=== PATIENT | female | born 1935 | race Caucasian/White ===

== ENCOUNTER 2024-11-02 18:34 | Emergency (ER) | payer MEDICARE, BC, MEDICAID, SELFPAY ==
[2024-11-02] VITALS (7 sets, daily range): BP systolic 149–180; BP diastolic 86–92; PULSE 56–108; RESP 12–22; TEMP 36.8–37.1; O2SAT 86–98; BMI 25.7
--- NOTE | 2024-11-02 18:38 | PD.EDADULT ---
ED General RME/HPI General Chief complaint: Weakness Stated complaint: GENERALIZED WEAKNESS Time Seen by Provider: 11/02/24 18:36 Arrival date/time: 11/02/24 18:34 CC: Weakness HPI patient was recently diagnosed with a UTI, and the family report the patient is generalized weakness, patient states that she has been feeling poorly today. But denies any outright navjot symptoms EMS reports stable vital signs and route. The patient is awake alert and oriented with a history of COPD and tongue cancer. At 2308 family member at bedside states the patient has been mildly altered for the past 3 days however I am noticed that the patient was responding to all questions without problems. The family member insist that it is time I am gone she is altered to other staff workers in the emergency room. Related Data Home Medications ?Medication ?Instructions ?Recorded ?Confirmed albuterol sulfate 90 mcg/actuation 1 puff inhalation Q4H PRN sob 12/05/21 12/05/21 aerosol inhaler ipratropium 0.5 mg-albuterol 3 mg 3 ml inhalation Q6H PRN sob 12/05/21 12/05/21 (2.5 mg base)/3 mL nebulization soln levothyroxine 25 mcg tablet 25 mcg PO QAM 12/05/21 12/05/21 losartan 25 mg tablet 25 mg PO QDAY 12/05/21 12/05/21 pramipexole 2.25 mg 2.25 mg PO QDAY 12/05/21 12/05/21 tablet,extended release 24 hr sertraline 50 mg tablet 50 mg PO QDAY 12/05/21 12/05/21 Previous Rx's ?Medication ?Instructions ?Recorded albuterol sulfate 2.5 mg/3 mL 2.5 mg (3 mL) inhalation Q4H PRN 01/21/23 (0.083 %) solution for nebulization shortness of breath or wheezing #90 mL Allergies Allergy/AdvReac Type Severity Reaction Status Date / Time Penicillins Allergy Intermediate Rash Verified 11/29/21 16:19 Review of Systems Review of Systems Narrative Review of Systems: GEN: No fever, no chills, no weight loss EYES: No discharge, no visual changes, no pain HEENT: No ear pain, no congestion, no sore throat PULM: No shortness of breath, no cough, no congestion CV: No chest pain, no dyspnea on exertion, no palpitations GI: No nausea, no vomiting, no diarrhea, no pain, no constipation : No frequency, no urgency, no dysuria MUSC/SKEL: No joint pain, no back pain SKIN: No rash PSYCH: No hallucinations, no depression HEME/LYMPH: No easy bleeding or bruising tendencies NEURO: + weakness, no headache Past Medical History Past Medical History NEUROLOGIC: Negative Neurological Disorders CARDIAC: Positive Cardiac Disorders; Negative Hypercholesterolemia, Congestive Heart Failure or Hypertension RESPIRATORY: Positive Chronic Obstructive Pulmonary Disease (COPD) GASTROINTESTINAL: Negative Gastrointestinal Disorders GENITOURINARY: Negative Genitourinary Disorders or Renal Disease MUSCULOSKELETAL: Negative Musculoskeletal Disorders ENT: Positive Blind ENDOCRINE: Positive Endocrine Disorders and Hypothyroidism; Negative Diabetes Mellitus Type 1 or Diabetes Mellitus Type 2 HEMATOLOGIC: Negative Blood Disorders PSYCHO/SOCIAL: Positive Depression OTHER HISTORY: Negative Autoimmune Disease Surgical History SURGICAL: Positive Hysterectomy Social History SMOKING STATUS: Former smoker SUBSTANCE USE: does not use ED Exam Narrative Physical exam: [General: Deconditioned but not frail. Not in any acute distress Head normocephalic HEENT: Mouth: Grossly malformed tongue patient advised is baseline for her. Eyes pupils are PERRLA EOMs are intact pink moist membranes uvula is midline swallow symmetrical. All other subsystems of HEENT are within acceptable limits Neck is supple nontender Chest equal chest rise nontender to palpation Respiratory: Clear to auscultation no wheezes crackles or rubs CV: Rate rhythm is regular no murmurs rubs or clicks Abdomen is distended secondary to body habitus soft nontender no masses positive bowel sounds all 4 quadrants Back: No CVA tenderness no spinous process tenderness from cervical spine thoracic and lumbar spine Skin: Intact no petechiae rash induration ulceration or crepitus Extremities: Moving all extremity against resistance cap refill less than 2 seconds neurosensory intact Neuro: Awake alert oriented x3 Glascow coma 15 no focal deficits] Course Course Course Narrative: Plan is to CT of the head to see that there is no abnormalities with a concern for metastasis from the tongue cancer. The patient will begin radiation therapy with Dr. Pinto in 1 week. Quality Measures none Orders Category Date Time Status CT head/brain wo con Stat Exams 11/02/24 23:07 Completed CBC Stat Lab 11/02/24 19:38 Completed CMP [Comprehensive Metabolic Panel] Stat Lab 11/02/24 19:38 Completed Urinalysis, C/S if Indicated Stat Lab 11/02/24 21:58 Completed HYDROcodone/APAP 10/325 [[place] 10/325] Med 11/02/24 21:12 Discontinued 1 tab PO X1 ONE Sodium Chloride 0.9% 500 ml [Ns] 500 ml Med 11/03/24 01:00 Discontinued IV 999 mls/hr Vital Signs Vital signs: Vital Signs Temperature 98.8 F 11/02/24 19:03 Pulse Rate 108 H 11/02/24 19:03 Respiratory Rate 18 11/02/24 19:03 Blood Pressure 170/90 H 11/02/24 19:03 Pulse Oximetry (%) 86 L 11/02/24 19:03 Oxygen Delivery Method Nasal Cannula 11/02/24 19:03 MDM Patient data External records reviewed:: [facility] previous records and EMS form Clinical information provided by:: patient and EMS Social determinants that could affect healthcare access:: none Patient has the following chronic illnesses:: Tongue cancer, COPD How is presenting disease/condition affected by chronic disease/condition?: uneffected by Evaluation data The following diagnostics were reviewed and interpreted by me:: lab results and radiology exam(s) Lab and/or radiology exams considered but not ordered:: None Interpretation Summary: Possible altered behavior secondary to fluctuations in pain medication administered. Medications Medications considered but not ordered:: None Medication administrations:: Medication Administration History Discontinued Medications Hydrocodone Bitart/Acetaminophen (Hydrocodone/Apap 10/325 Tab) 1 tab PO X1 ONE Stop: 11/02/24 21:13 Last Admin: 11/02/24 21:19 Dose: 1 tab Documented By: JIMMIE Sodium Chloride (Ns) 500 mls @ 999 mls/hr IV .Q31M ONE Stop: 11/03/24 01:30 Last Infusion: 11/03/24 02:34 Dose: Infused Documented By: Admin: 11/03/24 02:03 Dose: 999 mls/hr Documented By: KG None Consultations Consultation(s) initiated? (list below): No Diagnosis Differential Diagnosis ED Complaint MDM: Cerebral mets, electrolyte imbalances dehydration Most likely diagnosis given after review of the tests above:: Weakness Admission Indicated Admission indicated?: not indicated Explain why admission is indicated or not indicated:: Stable for outpatient follow-up Admission Request Was there a request for admission?: No Disposition Plan Disposition Plan: Discharge Discharge Attestation Discharge Attestation: The patient and all family members were given an opportunity to ask questions and understood the discharge instructions. Discharge instructions specifically effects, indications for sooner follow up or return to the emergency department, and the expected course of current diagnosis. Patient condition: Stable Medical Decision Making Differential Diagnosis Differential Diagnosis: Cerebral mets, electrolyte imbalances dehydration Lab Data 11/02/24 19:38 11/02/24 19:38 Labs: Lab Results 11/02/24 11/02/24 Range/Units 19:38 21:58 WBC 15.6 H (3.6-11.0) Thou/mm3 RBC 3.39 L (4.00-5.20) Miln/mm3 Hgb 9.3 L (12.0-16.0) g/dL Hct 28.5 L (36.0-46.0) % MCV 84 (80-100) fL MCH 27.4 (25.0-35.0) pg MCHC 32.6 (31.0-37.0) g/dl RDW Std Deviation 51.1 H (36.4-46.3) fL Plt Count 454 H (140-440) Thou/mm3 Neut % (Auto) 87 H (37-80) % Lymph % (Auto) 5 L (10-50) % [place] % (Auto) 6 (0-12) % Eos % (Auto) 0 (0-10) % Baso % (Auto) 0 (0-2.5) % Neut # (Auto) 13.6 H (1.8-7.7) Thou/mm3 Lymph # (Auto) 0.8 L (1.0-4.8) Thou/mm3 [place] # (Auto) 1.0 H (0.0-0.8) Thou/mm3 Eos # (Auto) 0.0 (0.0-0.5) Thou/mm3 Baso # (Auto) 0.0 (0.0-0.2) Thou/mm3 Immature Gran # (Auto) 0.19 H (0.00-0.00) Thou/mm3 Absolute Nucleated RBC 0.00 (0.00-0.00) Thou/mm3 Immature Gran % 1 H (0-0) % Nucleated RBC % 0 (0) /100 WBC Sodium 138 (136-145) mMol/L Potassium 4.7 (3.4-5.1) mMol/L Chloride 100 (98-107) mMol/L Carbon Dioxide 27.6 (20.0-31.0) mMol/L Anion Gap 10 (7-16) BUN 22 (9-23) mg/dL Creatinine 0.8 (0.6-1.3) mg/dL Estim Creat Clear Calc 45.2 L (>60) mL/min eGFR > 60 (60 - ) See Note BUN/Creatinine Ratio 28 H (12-20) Ratio Glucose 107 H (74-106) mg/dL Calculated Osmolality 278 (275-295) Calcium 9.2 (8.3-10.6) mg/dL Corrected Calcium 9.2 (8.5-10.1) mg/dL Total Bilirubin 0.3 (0.3-1.2) mg/dL AST 20 (0-34) U/L ALT 19 (10-49) U/L Alkaline Phosphatase 83 (46-116) U/L Total Protein 7.1 (5.7-8.2) gm/dL Albumin 4.1 (3.4-4.8) gm/dL Globulin 3.0 (2.3-3.5) gm/dL Albumin/Globulin Ratio 1.4 (1.2-2.2) Ur Collection Type Clean Catch Urine Color Lt-Yellow (Lt Yel-Yel) Urine Clarity Clear (Clear/Hazy) Urine pH 7.0 (5.0-7.0) Ur Specific [place] 1.018 (1.001-1.035) Urine Protein 1+ A (Neg - Trace) Urine Glucose (UA) Negative (Negative) Urine Ketones 1+ A (Negative) Urine Blood Negative (Negative) Urine Nitrite Negative (Negative) Urine Bilirubin Negative (Negative) Urine Urobilinogen (Auto) Negative (0.0-1.0) mg/dL Ur Leukocyte Esterase Negative (Negative) Urine RBC 1 (0-3) /hpf Urine WBC 1 (0-5) /hpf Ur Squamous Epith Cells < 1 (0-5) /hpf Urine Bacteria Rare (None) Ur Culture Indicated? Not Indicated Discharge Plan Plan Patient Disposition: HOME (Self Care) Prescriptions/Referrals Prescriptions/Med Rec: No Action ipratropium-albuterol 0.5 mg-3 mg(2.5 mg base)/3 mL solution for nebulization 3 ml INHALATION Q6H PRN (Reason: sob) Patient Comments: INHALE 1 VIAL VIA NEBULIZER EVERY 6 HOURS FOR 30 DAYS NEEDED levothyroxine 25 mcg tablet 25 mcg PO QAM Patient Comments: TAKE 1 TABLET IN THE MORNING ON AN EMPTY STOMACH ONCE A DAY ORALLY 90 DAYS losartan 25 mg tablet 25 mg PO QDAY Patient Comments: TAKE 1 TABLET BY MOUTH EVERY DAY albuterol sulfate 90 mcg/actuation HFA aerosol inhaler 1 puff INHALATION Q4H PRN (Reason: sob) Patient Comments: INHALE 1 PUFF INTO THE LUNGS EVERY 4 HOURS NEEDED sertraline 50 mg tablet 50 mg PO QDAY pramipexole 2.25 mg tablet extended release 24 hr 2.25 mg PO QDAY Patient Comments: TAKE 1 TABLET BY MOUTH EVERY DAY albuterol sulfate 2.5 mg /3 mL (0.083 %) solution for nebulization 2.5 mg inhalation Q4H PRN (Reason: shortness of breath or wheezing) Qty: 90 0RF Referrals: Jackie Brennan FNP [Primary Care Provider] - In 1 week Problem List Clinical Impression: Acute dehydration Patient/Caregiver Discharge Instructions Education Materials: Dehydration Additional Instructions: Return to the emergency department worsening symptoms, or any other concerns. Follow-up with your primary care in the next 3 to 5 days. Print Language: Sami Stand Alone Forms: Mary Ellen Award Info., Patient Portal Info Letter MIRNA/JUAN Supervising Physician MIRNA/JUAN Supervising Physician: Sundeep Mccartney ENP
[2024-11-02 19:57] LABS: Basophils % (Auto) 0 % (0-2.5); Eosinophils % (Auto) 0 % (0-10); Hematocrit 28.5 % (36.0-46.0); Hemoglobin 9.3 g/dL (12.0-16.0); Immature Granulocytes % (Auto) 1 % (0-0); Immature Granulocytes Auto 0.19 Thou/mm3 (0.00-0.00); Lymphocytes # (Auto) 0.8 Thou/mm3 (1.0-4.8); Lymphocytes % (Auto) 5 % (10-50); Mean Corpuscular HGB Conc 32.6 g/dl (31.0-37.0); Mean Corpuscular Hemoglobin 27.4 pg (25.0-35.0); Mean Corpuscular Volume 84 fL (80-100); Monocytes % (Auto) 6 % (0-12); Neutrophils # (Auto) 13.6 Thou/mm3 (1.8-7.7); Neutrophils % (Auto) 87 % (37-80); Nucleated Red Blood Cell % 0 /100 WBC (0); Platelet Count 454 Thou/mm3 (140-440); RDW Standard Deviation 51.1 fL (36.4-46.3); Red Blood Count 3.39 Miln/mm3 (4.00-5.20); White Blood Count 15.6 Thou/mm3 (3.6-11.0)
[2024-11-02 20:15] LABS: Alanine Aminotransferase 19 U/L (10-49); Albumin, Serum 4.1 gm/dL (3.4-4.8); Albumin/Globulin Ratio 1.4 (1.2-2.2); Alkaline Phosphatase 83 U/L (46-116); Anion Gap 10 (7-16); Aspartate Amino Transferase 20 U/L (0-34); BUN/Creatinine Ratio 28 Ratio (12-20); Bilirubin,Total 0.3 mg/dL (0.3-1.2); Blood Urea Nitrogen 22 mg/dL (9-23); Calcium 9.2 mg/dL (8.3-10.6); Calcium (Corrected) 9.2 mg/dL (8.5-10.1); Carbon Dioxide 27.6 mMol/L (20.0-31.0); Chloride 100 mMol/L (98-107); Creatinine (Component) 0.8 mg/dL (0.6-1.3); Estimated Creatinine Clearance 45.2 mL/min (>60); Glucose 107 mg/dL (74-106); Osmolality,Calculated 278 (275-295); Potassium 4.7 mMol/L (3.4-5.1); Sodium 138 mMol/L (136-145); Total Protein 7.1 gm/dL (5.7-8.2); eGFR > 60 See Note
[2024-11-02] MEDS: HYDROcodone/APAP 10/325 TAB PO (21:19)
--- NOTE | 2024-11-02 21:57 | PC.NURSE ---
pt resituated. new brief. purewick in place. UA colleted via straight cath by RN.
[2024-11-02 22:03] LABS: Collection Type, Urine Clean Catch
[2024-11-02 22:16] LABS: Bacteria,Urine Rare; Bilirubin,Urine Negative (Negative); Blood,Urine Negative (Negative); Clarity,Urine Clear (Clear/Hazy); Color,Urine Lt-Yellow (Lt Yel-Yel); Culture Indicated,Urine Not Indicated; Glucose, Urine Negative (Negative); Ketones,Urine 1+ (Negative); Leukocyte Esterase,Urine Negative (Negative); Nitrite,Urine Negative (Negative); Protein,Urine 1+ (Neg - Trace); RBC,Urine 1 /hpf (0-3); Specific Gravity,Urine 1.018 (1.001-1.035); Squamous Epithelial Cell,Urine < 1 /hpf (0-5); Urobilinogen,Urine Negative mg/dL (0.0-1.0); WBC,Urine 1 /hpf (0-5)
--- NOTE | 2024-11-02 23:07 | XR_ITS ---
Examination: CT brain head without contrast. 2-D sagittal coronal reconstructions Date and time of exam:November 02, 2024 11:12 PM Indications: Altered mental status with generalized weakness today CTDI: vol (mGy):43.1 DLP: (mGycm):932 Technique: Multiple CT axial sections of the brain have been obtained, 5 mm slice thickness. Contrast has not been administered. 2-D sagittal, coronal reconstructions have been obtained Low dose protocols were performed. One or more of the following dose reduction techniques were used; automated exposure control, adjustment of the mA and/or KV according to patient size, use of iterative reconstruction technique. Findings: No significant ventricular enlargement. Intra-axial or extra-axial hemorrhage density is not seen. No mass effect or midline shift Basal cisterns are not remarkable. Fourth ventricle is midline. Cranial vault intact. Significant right sphenoid sinusitis Impression: Negative for acute hemorrhage, mass effect or midline shift
--- NOTE | 2024-11-02 23:29 | PD.EDADDENDU ---
Emergency Room Addendum Addendum Narrative: 2325: Care assumed from Sundeep Mccartney NP. Past medical, surgical, social and family history reviewed. Vitals and home medications reviewed. Results and treatment plan discussed. I will assume the care of the patient at this time and will follow the patient, pending CT head. Please refer to the emergency department record for history and examination from initial visit. CT head is negative. Additional liter of IVF ordered then the patient can be discharged home. RADIOLOGY RESULTS: [facility] Report Signed Patient: PAUL CORTÉS [facility]. Record#: [id number] Birthdate: 1935 Age/Sex: 88 / F Location: [facility] Attending Dr: Ordering Physician: Sundeep Mccartney NP Date of Service: 11/02/24 Procedure(s): CT head/brain wo con Accession Number(s): [id number] cc: Sundeep Mccartney NP; Jackie Brennan ORDER CHECKER PACKER PROCESSER; Arnoldo Rowe MD~ Examination: CT brain head without contrast. 2-D sagittal coronal reconstructions Date and time of exam:November 02, 2024 11:12 PM Indications: Altered mental status with generalized weakness today CTDI: vol (mGy):43.1 DLP: (mGycm):932 Technique: Multiple CT axial sections of the brain have been obtained, 5 mm slice thickness. Contrast has not been administered. 2-D sagittal, coronal reconstructions have been obtained Low dose protocols were performed. One or more of the following dose reduction techniques were used; automated exposure control, adjustment of the mA and/or KV according to patient size, use of iterative reconstruction technique. Findings: No significant ventricular enlargement. Intra-axial or extra-axial hemorrhage density is not seen. No mass effect or midline shift Basal cisterns are not remarkable. Fourth ventricle is midline. Cranial vault intact. Significant right sphenoid sinusitis Impression: Negative for acute hemorrhage, mass effect or midline shift Dictated By: Arnoldo Rowe MD Signed By: <Electronically signed by Arnoldo Rowe MD in OV> 11/02/24 [id number]
[2024-11-03 00:01] VITALS: BP 152/73; PULSE 86; O2SAT 93
--- NOTE | 2024-11-03 00:05 | PC.NURSE ---
pt resting quietly. pts daughter is at bedside.
[2024-11-03 00:25] VITALS: BP 152/73; PULSE 74; RESP 18; TEMP 36.8; O2SAT 97
[2024-11-03 01:00] VITALS: BP 173/87; PULSE 88; O2SAT 97
[2024-11-03 02:00] VITALS: BP 153/75; PULSE 77; RESP 19; O2SAT 96
[2024-11-03] MEDS: SODIUM CHLORIDE 0.9% 500 ML 500 ML 999 ML IV (02:03)
[2024-11-03 03:00] VITALS: BP 151/66; PULSE 82; RESP 16; O2SAT 97
[2024-11-03 04:00] VITALS: BP 148/65; PULSE 76; TEMP 36.7; O2SAT 89
== END 2024-11-03 04:15 | disposition home or self-care (01) ==
PROVIDERS: Registered Nurse General Practice; Emergency Provider Emergency Medicine; PCP Registered Nurse Community Health
DX: E86.0 Dehydration (principal); R41.82 Altered mental status, unspecified
CPT/HCPCS: 36415; 70450; 80053; 81001; 85025; 96360; 99284; J7040; A9270

== ENCOUNTER 2024-11-13 10:19 | Outpatient (RCR) | payer MEDICARE, BC, MEDICAID, SELFPAY ==
--- NOTE | 2024-10-27 09:41 | CTCCONSULT_ITS ---
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 Braxton Nunez PA-C Referring physician. Faye Wade MD RUST. Reason for consultation. Patient with recent diagnosis of lateral left tongue CA History of Present Illness: Patient is an 88-year-old lady who had a growth in the left side of the t ongue and CT of the neck was ordered on 09/03/2024 revealing enhancing left tongue mass. Went to see ear nose throat Dr. Artem Dubois with biopsy revealing well different squamous SCCA. Depth invasion c annot be determined. Saw doctors at [facility] with PET scan which revea led on 10/19/2024 large multilobular infiltrating hypermetabolic mass involving left tongue left oral b uccal mucosa extending to the left palatine fossa measuring up to 7.6 cm with extension across midlin e to the right at the level of mid tongue tumor extending inferiorly to the left palatine fossa to in volve the left lateral follicular. There was also left large metabolic jugulodigastric jason met up to 3.8 cm. PD-L1 showed +60%. Patient saw Dr. Wade who suggested immunotherapy along with radiation therapy. Patient now referred for radiation oncology consultation. Past Medical History: Hypothyroidism COPD asthma blindness Parkinson's dementia Meds. Mirapex albuterol sertraline loratadine donezepil pregabalin Family history. 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 Neck nodes not felt. CV: Chest clear to auscultation heart regular rate and rhythm ABD: Soft no organomegaly tenderness EXT: No cyanosis clubbing or edema Assessment:1. 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 Having pain and difficulty swallowing 2. Patient with high PD-L1 positive cancer, scheduled for every 3 weeks immunotherapy at [facility] according to daughter. 3. Radiation therapy to the oral cavity and regional neck node sites 7000 cGy should help achieve lo abigail control and palliate patient's symptoms of pain and obstruction. 4. I will be watching for possible need for G-tube later due to side effects and progression of canc er before effective palliation of 7000 cGy has been completed. Side effects explained. 5. Thank you very much for allowing me to evaluate and manage this patient. Cc: Faye Dubois DO Electronically signed by: Sorin Pinto MD, DABR 10/27/2024 9:38 AM
--- NOTE | 2024-10-27 09:47 | CTCTXPLN_ITS ---
[facility] [address] [place], [place] [address] Physician Clinical Treatment Planning Note Date of Service: 10/27/2024 Name: PAUL CORTÉS : 1935 The patient has agreed to proceed with Radiation therapy. Tests and supporting medical records were interpreted to assist in defining the tumor location and extent of disease. Further imaging will be necessary to contour and delineate the volume to which the XRT will be provided. A. Treatment Intent: Curative B. Modality: 6 MV C. Requested Technique: VMAT D. Treatment Site: Head and neck E. Critical structures to be contoured on plan: F. In order to accomplish this plan, I am ordering/Prescribing the followin. Simulations (s) will be performed to accomplish a reproducible treatment position, to determine op timal treatment portals/beam arrangements, to design beam modifying devices and verify treatment port als on patient prior to the commencement of Radiation Therapy. Head and neck Aquaplast special proce dure for chemoradiation 2. Devices; for immobilization and beam shapin. CT Guidance for placement of XRT guadarrama Scan area: 4. Portal images Frequency: 5. Invivo transit dose measurement once per week on all VMAT patients. 6. Special Physics Consult Requested for: 7. Other requests: G. Dose Objectives: Curative Electronically signed by: Sorin Pinto M.D. 10/27/2024 9:44 AM
--- NOTE | 2024-10-27 09:49 | CTCTXPLNST_ITS ---
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 Pt Treatment Intent: curative palliative other: Stage: Procedure CPT # Ordered Spec. Procedure 53737 1 Rhoades Complex (set-up) 40087 Head and neck 1 Rhoades Simple 59755 IMRT Plan 62738 1 MLC Devices VMAT 61785 3 Rhoades 3 D 09199 TRTMT dev Complex 99514 aquaplast 1 TRTMT dev simple 70430 Basic Dylan 09964 9 Special Dosimetry 94385 Spec Physics 61839 Port Films 43273 SRS Cranial/1FX 00490 SBR 5 FX or Less /ex: 5 = 5 fx 22171 IMRT Simple 99949 7000 35 IMRT Complex 41923 IGRT 45683 33 Rad del com 6-10 20887 Rad del com 11- 38019 Cont Med Physics 09228 7 Treatment Planning 19864 1 Rad del com 20 mev 31463 Rad del inter 6-10 50841 Rad del inter 11 97298 Rad del simple 6-10 92119 Rad del simple 11-19 14028 Special Port Plan 39494 TRTMT dev inter 21518 Isodose Complex 61901 Isodose simple 14070 Resp Motion Mgmt Simulation 83513 Placement of Fiducial Markers 49812 Electronically Signed By: Sorin Pinto MD, DABR 10/27/2024 9:47 AM
--- NOTE | 2024-10-28 07:05 | CTCSNOTE_ITS ---
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 (C) CT slices included head and neck (D) VMAT Will be needed for maximum sparing of adjacent normal critical structures. (E) Patient tolerated the simulation well and left the room in good condition. Electronically signed by: Sorin Pinto MD, NOELLER 10/28/2024 7:02 AM
== END 2024-11-13 23:59 | disposition home or self-care (01) ==
LOC: SCTC 10:19
PROVIDERS: PCP Registered Nurse Community Health; Referring Provider Internal Medicine; Visit Provider Radiology Therapeutic Radiology
DX: Z51.0 Encounter for antineoplastic radiation therapy (principal); C02.2 Malignant neoplasm of ventral surface of tongue
CPT/HCPCS: 77014; 77290; 77300; 77301; 77334; 77336; 77338; 77385; 99213; A9270; G0463

== ENCOUNTER 2024-12-11 09:49 | Outpatient (RCR) | payer MEDICARE, BC, MEDICAID, SELFPAY ==
--- NOTE | 2024-11-16 11:18 | CTCTRTNOTE_ITS ---
[facility] [address], [place] [address] Weekly Management Date: 11/16/2024 ?? Name: PAUL CORTÉS : 1935 A. Patient is currently at 1800 cGy. B. Patient is tolerating treatment well. Oral fungus appears improved after using clotrimazole lozenges. C. Resume radiation therapy. Electronically signed by: Sorin Pinto M.D. 11/16/2024 11:16 AM
== END 2024-12-11 23:59 | disposition home or self-care (01) ==
LOC: SCTC 09:49
PROVIDERS: PCP Registered Nurse Community Health; Referring Provider Registered Nurse Community Health; Visit Provider Radiology Therapeutic Radiology
DX: Z51.0 Encounter for antineoplastic radiation therapy (principal); C02.2 Malignant neoplasm of ventral surface of tongue
CPT/HCPCS: 77336; 77385

== ENCOUNTER 2024-12-25 10:03 | Outpatient (RCR) | payer MEDICARE, BC, MEDICAID, SELFPAY ==
--- NOTE | 2024-12-14 09:50 | CTCTRTNOTE_ITS ---
[facility] [address] [place], [place] [address] Weekly Management Date: 12/14/2024 ?? Name: PAUL OMER : 1935 A. Patient is currently at 5200 cGy. Tumor smaller. B. Patient is tolerating treatment well. Gets immunotherapy this week then off for the next 2 weeks. C. Resume radiation therapy. Electronically signed by: Sorin Pinto M.D. 12/14/2024 9:47 AM
--- NOTE | 2024-12-31 13:33 | CTCTRTNOTE_ITS ---
[facility] [address] [place], [place] [address] Weekly Management Date: 12/28/2024 ?? Name: PAUL FIGUEROABRENT Martinez.: 1935 A. Patient is currently at [address]Gy. Phone call from daughter. Patient too ill to come in today may go to ER. Electronically signed by: Sorin Pinto M.D. 12/31/2024 1:30 PM
== END 2025-01-11 23:59 | disposition home or self-care (01) ==
LOC: SCTC 10:03
PROVIDERS: PCP Registered Nurse Community Health; Referring Provider Registered Nurse Community Health; Visit Provider Radiology Therapeutic Radiology
DX: Z51.0 Encounter for antineoplastic radiation therapy (principal); C02.2 Malignant neoplasm of ventral surface of tongue; K12.33 Oral mucositis (ulcerative) due to radiation; Y84.2 Radiological procedure and radiotherapy as the cause of abnormal reaction of the patient, or of later complication, without mention of misadventure at the time of the procedure
CPT/HCPCS: 77336; 77385

== ENCOUNTER 2024-12-30 12:59 | Inpatient (IN) | payer MEDICARE, MEDICAID, SELFPAY ==
[2024-12-30] VITALS (8 sets, daily range): BP systolic 124–144; BP diastolic 54–70; PULSE 73–92; RESP 15–82; TEMP 36.6–38; O2SAT 91–99; BMI 20.1
--- NOTE | 2024-12-30 13:00 | PC.NURSE ---
PT ARRIVED BY AMBULANCE FROM HOME WITH C/O S.O.B. AND INCREASED WORK OF BREATHING TODAY (PER DAUGHTER AT HOME). PER DAUGHTER PT ALSO A dnr AND WILL BRING PAPERWORK TO THE E.D. PER MEDIC PT WAS SATTING AT 91% ON 3L AND INCREASED O2 TO 6L AND GABRIELA INCEASED TO 96%
--- NOTE | 2024-12-30 13:52 | EDNOTE_ITS ---
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 Daughter states the patient previously was able to eat soft foods. However in the last few days the patient is only drinking small amounts of fluids. Accompanied by one episode of loose stools this morning and fevers. Daughter additionally reports the patient began receiving IV fluids by home health nurse and received her first fluids several days ago. No other complaints reported. Related Data Home Medications ?Medication ?Instructions ?Recorded ?Confirmed albuterol sulfate 90 mcg/actuation 1 puff inhalation Q 4H PRN sob 12/05/21 12/05/21 aerosol inhaler ipratropium 0.5 mg-albuterol 3 mg 3 ml inhalation Q6H PRN sob 12/05/21 12/05/21 (2.5 mg base)/3 mL nebulization soln levothyroxine 25 mcg tablet 25 mcg PO QAM 12/05/21 losartan 25 mg tablet 25 mg PO QDAY 12/05/2112/05 pramipexole 2.25 mg 2.25 mg PO QDAY 12/05/21 tablet,extended release 24 hr sertraline 50 mg tablet 50 mg PO QDAY 12/05/2112/05 Previous Rx's ?Medication ?Instructions ?Recorded albuterol sulfate 2.5 mg/3 mL 2.5 mg (3 mL) inhalation Q4H PRN 01/21/23 (0.083 %) solution for nebulization shortness of breat h or wheezing #90 mL Allergies Allergy/AdvReac Type Severity Reaction Status Date / Time Penicillins Allergy Intermediate Rash Verified 12/30/24 13:14 Review of Systems Review of Systems Systems Reviewed: All systems reviewed, normal except as documented Past Medical History Past Medical History NEUROLOGIC: Positive Neurological Disorders and Dementia (12/2024 BEING TESTED) CARDIAC: Positive Cardiac Disorders RESPIRATORY: Positive Chronic Obstructive Pulmonary Disease (COPD) ENT: Positive Blind and Deafness ENDOCRINE: Positive Endocrine Disorders and Hypothyroidism PSYCHO/SOCIAL: Positive Depression OTHER HISTORY: Positive Chemotherapy (TONGUE CANCER) and Cancer (TONGUE) Surgical History SURGICAL: Positive Hysterectomy Social History SMOKING STATUS: Unknown if ever smoked SUBSTANCE USE: does not use ED Exam General Limitations: Present no limitations General appearance: Present alert, in no apparent distress and other (very hard of hearing ) Head Head exam: Present atraumatic, normocephalic and normal inspection Eye Eye exam: Present other (Patient is blind ) ENT ENT exam: Present other (Lips are dry and cracked, tongue erythematous and edematous, tongue cancer on the left wasn't appreciated ) Neck Neck exam: Present normal inspection, full ROM and trachea midline Chest Chest inspection: Present normal inspection and symmetric chest wall rise Respiratory Respiratory exam: Present normal lung sounds bilaterally Cardiovascular Cardiovascular exam: Present regular rate, normal rhythm and normal heart sounds Abdominal Exam Abdominal exam: Present soft and normal bowel sounds Extremities Exam Extremities exam: Present normal inspection and full ROM Back Exam Back exam: Present normal inspection and full ROM Neurological Exam Neurological exam: Present alert and CN II-XII intact Psychiatric Psychiatric exam: Present normal affect and normal mood Skin Skin exam: Present warm, dry, intact and normal color Course Quality Measures none Orders Category Date Time Status COVID-19 Screening Questionnaire NOW Care 12/30/24 16:29 Active 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 Q4H START 00 Care 12/30/24 14:22 Active Continuous Pulse Oximetry NOW Care 12/30/24 14:22 Active Decision to Admit X1 Care 12/30/24 16:28 Active EKG (ED ONLY) *Do not use* NOW Care 12/30/24 14:23 Completed Insert IV NOW Care 12/30/24 14:23 Active Transfuse,blood/blood products NOW Care 12/30/24 16:20 Active EKG (ED Only) Stat Exams 12/30/24 14:22 Draft XR chest 1V portable Stat Exams 12/30/24 14:22 Completed B-Type Natriuretic Peptide Stat Lab 12/30/24 15:05 Completed Blood Culture (Lab) Stat Lab 12/30/24 16:20 Ordered CBC Stat Lab 12/30/24 15:05 Completed Comprehensive Metabolic Panel Stat Lab 12/30/24 15:05 Completed Lactic Acid [Lactate (Lactic Acid)] Stat Lab 12/30/24 16:24 Ordered Magnesium Stat Lab 12/30/24 15:05 Completed Partial Thromboplastin Time Stat Lab 12/30/24 15:05 Completed Path Review Blood Smear Stat Lab 12/30/24 15:05 Completed Procalcitonin Stat Lab 12/30/24 16:20 Ordered Prothrombin Time with INR Stat Lab 12/30/24 15:05 Completed Troponin I Stat Lab 12/30/24 15:05 Completed Type and Screen Stat Lab 12/30/24 16:21 Ordered Urinalysis Stat Lab 12/30/24 14:25 Ordered prbc [Red Blood Cells] Stat Lab 12/30/24 16:21 Ordered Albuterol/Ipratr Rt Usha [Duoneb Rt Usha] Med 12/30/24 14:22 Discontinued 3 ml INH X1 ONE Azithromycin Inj [Zithromax Inj] 500 mg Med 12/31/24 09:00 Pending Sodium Chloride 0.9% 250 ml [Ns] 250 ml IV QDAY Azithromycin Inj [Zithromax Inj] 500 mg Med 12/30/24 16:30 Active Sodium Chloride 0.9% 250 ml [Ns] 250 ml IV X1 Sodium Chloride 0.9% 1000 ml [Ns] 1,000 ml Med 12/30/24 14:22 Active IV 100 mls/hr cefTRIAXone [Rocephin] 2 gm Med 12/30/24 16:20 Active SODIUM CHLORIDE 0.9% (Popper) [Ns 0.9% (P)] 50 ml IV X1 Vital Signs Vital signs: Vital Signs Pulse Rate 92 12/30/24 13:00 Pulse Oximetry (%) 95 12/30/24 13:00 Oxygen Flow Rate 6 12/30/24 13:00 [facility] Patient data External records reviewed:: [facility] previous records (I reviewed outpatient oncology note from 12/14/2024 ) and EMS form Clinical information provided by:: EMS and family Social determinants that could affect healthcare access:: none Patient has the following chronic illnesses:: 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 and Keytruda infusions every 3 weeks (last received 2 weeks ago), dementia, COPD on 3.5L o2, hypothyroidism, blindness, Raynaud's disease How is presenting disease/condition affected by chronic disease/condition?: e xacerbated by Evaluation data The following diagnostics were reviewed and interpreted by me:: lab results, radiology exam(s) and EKG tracing(s) (EKG @ 1539 shows sinus rhythm, rate 77, RBBB, no acute changes, artifact in lead III ) Lab and/or radiology exams considered but not ordered:: None Interpretation Summary: Ordering Physician: Michel Bennett MD Date of Service: 12/30/24 Procedure(s): XR chest 1V portable Accession Number(s): [id number] cc: Michel Bennett MD; Jackie Brennan [employer] TECH; Arnoldo Rowe MD~ Examination: AP chest single view Technique one AP portable upright chest single view Exam date and time: December 30, 2024 at 1338 hours INDICATIONS: Dyspnea today. FINDINGS: Bibasilar pneumonia. Normal heart size Mild vascular congestion. Severe osteopenia IMPRESSION: Bibasilar pneumonia Dictated By: Arnoldo Rowe MD Signed By: <Electronically signed by Arnoldo Rowe MD in OV> 12/30/24 1448 Medications Medications considered but not ordered:: None Medication administrations:: Medication Administration History Sodium Chloride (Ns) 1,000 mls @ 100 mls/hr IV .Q10H ONE Stop: 12/31/24 00:21 Last Admin: 12/30/24 16:28 Dose: 100 mls/hr Documented By: JU Ceftriaxone Sodium 2 gm/ (Sodium Chloride) 50 mls @ 100 mls/hr IV X1 ONE Stop: 12/30/24 16:49 Azithromycin 500 mg/ Sodium (Chloride) 250 mls @ 250 mls/hr IV QDAY JOSE Stop: 01/07/25 08:59 Azithromycin 500 mg/ Sodium (Chloride) 250 mls @ 250 mls/hr IV X1 ONE Stop: 12/30/24 17:29 Discontinued Medications Albuterol/Ipratropium (Albuterol/Ipratropium (Duoneb) Rt Usha 3 Ml Nebu) 3 ml INH X1 ONE Stop: 12/30/24 14:23 Last Admin: 12/30/24 14:55 Dose: 3 ml Documented By: RAMON See above Consultations Consultation(s) initiated? (list below): Yes Consultation #1 (Physician, Specialty, Details): I spoke with hospitalist Dr. Muñoz working with Dr. Bee. Discussed patients PMHx, HPI, ED course, exam findings, labs, and radiology results. The hospitalist agree to accept the patient for admission. Diagnosis Differential Diagnosis ED Complaint MDM: Weakness, dehydration, COPD exacerbation, viral illness Most likely diagnosis given after review of the tests above:: anemia, bibasilar pneumonia, weakness, malnutrition, vascular congestion Admission Indicated Admission indicated?: indicated Explain why admission is indicated or not indicated:: Further evaluation and management of malnutrition Admission Request Was there a request for admission?: Yes Admission Attestation Admission request attestation: Discussed case with [] from Hospitalist service regarding admission. Discussed patients ED course, exam findings, labs, and radiology results. The Hospitalist [agrees,declines] to accept the patient for admission. Disposition Plan Disposition Plan: Admit Medical Decision Making Differential Diagnosis Differential Diagnosis: Weakness, dehydration, COPD exacerbation, viral illness Lab Data 12/30/24 15:05 12/30/24 15:05 Labs: Lab Results 12/30/24 Range/Units 15:05 WBC 15.1 H (3.6-11.0) Thou/mm3 RBC 2.81 L (4.00-5.20) Miln/mm3 Hgb 6.9 L* (12.0-16.0) g/dL Hct 21.8 L* (36.0-46.0) % MCV 78 L (80-100) fL MCH 24.6 L (25.0-35.0) pg MCHC 31.7 (31.0-37.0) g/dl RDW Std Deviation 52.4 H (36.4-46.3) fL Plt Count 469 H (140-440) Thou/mm3 Neut % (Auto) 87 H (37-80) % Lymph % (Auto) 5 L (10-50) % Park % (Auto) 7 (0-12) % Eos % (Auto) 0 (0-10) % Baso % (Auto) 0 (0-2.5) % Neut # (Auto) 13.2 H (1.8-7.7) Thou/mm3 Lymph # (Auto) 0.7 L (1.0-4.8) Thou/mm3 Park # (Auto) 1.0 H (0.0-0.8) Thou/mm3 Eos # (Auto) 0.0 (0.0-0.5) Thou/mm3 Baso # (Auto) 0.0 (0.0-0.2) Thou/mm3 Immature Gran # (Auto) 0.16 H (0.00-0.00) Thou/mm3 Absolute Nucleated RBC 0.02 H (0.00-0.00) Thou/mm3 Immature Gran % 1 H (0-0) % Nucleated RBC % 0 (0) /100 WBC Smear Path Review Sent to Pathologist PT 16.5 H (9.0-12.2) Seconds INR 1.6 H (0.9-1.3) APTT 42.2 H (22.0-36.0) Seconds Sodium 142 (136-145) mMol/L Potassium 4.4 (3.4-5.1) mMol/L Chloride 105 (98-107) mMol/L Carbon Dioxide 28.0 (20.0-31.0) mMol/L Anion Gap 9 (7-16) BUN 19 (9-23) mg/dL Creatinine 0.9 (0.6-1.3) mg/dL Estim Creat Clear Calc 38.6 L (>60) mL/min eGFR > 60 (60 - ) See Note BUN/Creatinine Ratio 21 H (12-20) Ratio Glucose 109 H (74-106) mg/dL Calculated Osmolality 286 (275-295) Calcium 8.7 (8.3-10.6) mg/dL Corrected Calcium 9.3 (8.5-10.1) mg/dL Magnesium 2.1 (1.6-2.6) mg/dL Total Bilirubin 0.3 (0.3-1.2) mg/dL AST 16 (0-34) U/L ALT 8 L (10-49) U/L Alkaline Phosphatase 64 (46-116) U/L Troponin I < 0.020 (0.0-0.045) ng/mL B-Natriuretic Peptide 405 H (0-100) pg/mL Total Protein 6.0 (5.7-8.2) gm/dL Albumin 3.3 L (3.4-4.8) gm/dL Globulin 2.7 (2.3-3.5) gm/dL Albumin/Globulin Ratio 1.2 (1.2-2.2) Discharge Plan Plan Patient Disposition: Admit Acute Care w/in Hospital Prescriptions/Referrals Prescriptions/Med Rec: No Action ipratropium-albuterol 0.5 mg-3 mg(2.5 mg base)/3 mL solution for nebulization 3 ml INHALATION Q6H PRN (Reason: sob) Patient Comments: INHALE 1 VIAL VIA NEBULIZER EVERY 6 HOURS FOR 30 DAYS NEEDED levothyroxine 25 mcg tablet 25 mcg PO QAM Patient Comments: TAKE 1 TABLET IN THE MORNING ON AN EMPTY STOMACH ONCE A DAY ORALLY 90 DAYS losartan 25 mg tablet 25 mg PO QDAY Patient Comments: TAKE 1 TABLET BY MOUTH EVERY DAY albuterol sulfate 90 mcg/actuation HFA aerosol inhaler 1 puff INHALATION Q4H PRN (Reason: sob) Patient Comments: INHALE 1 PUFF INTO THE LUNGS EVERY 4 HOURS NEEDED sertraline 50 mg tablet 50 mg PO QDAY pramipexole 2.25 mg tablet extended release 24 hr 2.25 mg PO QDAY Patient Comments: TAKE 1 TABLET BY MOUTH EVERY DAY albuterol sulfate 2.5 mg /3 mL (0.083 %) solution for nebulization 2.5 mg inhalation Q4H PRN (Reason: shortness of breath or wheezing) Qty: 90 0RF Referrals: Jackie Brennan, [employer] MA[employer] TECH [Primary Care Provider] - In 1 week Problem List Clinical Impression: Anemia, Pneumonia, Weakness, Malnutrition, Pulmonary vascular congestion Patient/Caregiver Discharge Instructions Print Language: Zambian Stand Alone Forms: Mary Ellen Award Info., Patient Portal Info Letter
--- NOTE | 2024-12-30 14:22 | XR_ITS ---
Examination: AP chest single view Technique one AP portable upright chest single view Exam date and time: December 30, 2024 at 1338 hours INDICATIONS: Dyspnea today. FINDINGS: Bibasilar pneumonia. Normal heart size Mild vascular congestion. Severe osteopenia IMPRESSION: Bibasilar pneumonia
--- NOTE | 2024-12-30 14:22 | EKG_ITS ---
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
[2024-12-30] MEDS: ALBUTEROL/IPRATROPIUM (Duoneb) RT SOL 3 ML NEBU INH ×2 (14:55→23:58)
[2024-12-30 15:18] LABS: Basophils % (Auto) 0 % (0-2.5); Eosinophils % (Auto) 0 % (0-10); Hematocrit 21.8 % (36.0-46.0); Immature Granulocytes % (Auto) 1 % (0-0); Immature Granulocytes Auto 0.16 Thou/mm3 (0.00-0.00); Lymphocytes # (Auto) 0.7 Thou/mm3 (1.0-4.8); Lymphocytes % (Auto) 5 % (10-50); Mean Corpuscular HGB Conc 31.7 g/dl (31.0-37.0); Mean Corpuscular Hemoglobin 24.6 pg (25.0-35.0); Mean Corpuscular Volume 78 fL (80-100); Monocytes % (Auto) 7 % (0-12); Neutrophils # (Auto) 13.2 Thou/mm3 (1.8-7.7); Neutrophils % (Auto) 87 % (37-80); Nucleated Red Blood Cell # 0.02 Thou/mm3 (0.00-0.00); Nucleated Red Blood Cell % 0 /100 WBC (0); Platelet Count 469 Thou/mm3 (140-440); RDW Standard Deviation 52.4 fL (36.4-46.3); Red Blood Count 2.81 Miln/mm3 (4.00-5.20); White Blood Count 15.1 Thou/mm3 (3.6-11.0)
[2024-12-30 15:20] LABS: Hemoglobin 6.9 g/dL (12.0-16.0)
[2024-12-30 15:27] LABS: Path Review Blood Smear Sent to Pathologist
[2024-12-30 15:33] LABS: INR 1.6 (0.9-1.3); Partial Thromboplastin Time 42.2 Seconds (22.0-36.0); Prothrombin Time 16.5 Seconds (9.0-12.2)
[2024-12-30 15:37] LABS: B-Type Natriuretic Peptide 405 pg/mL (0-100)
[2024-12-30 16:01] LABS: Alanine Aminotransferase 8 U/L (10-49); Albumin, Serum 3.3 gm/dL (3.4-4.8); Albumin/Globulin Ratio 1.2 (1.2-2.2); Alkaline Phosphatase 64 U/L (46-116); Anion Gap 9 (7-16); Aspartate Amino Transferase 16 U/L (0-34); BUN/Creatinine Ratio 21 Ratio (12-20); Bilirubin,Total 0.3 mg/dL (0.3-1.2); Blood Urea Nitrogen 19 mg/dL (9-23); Calcium 8.7 mg/dL (8.3-10.6); Calcium (Corrected) 9.3 mg/dL (8.5-10.1); Chloride 105 mMol/L (98-107); Creatinine (Component) 0.9 mg/dL (0.6-1.3); Estimated Creatinine Clearance 38.6 mL/min (>60); Globulin 2.7 gm/dL (2.3-3.5); Glucose 109 mg/dL (74-106); Magnesium 2.1 mg/dL (1.6-2.6); Osmolality,Calculated 286 (275-295); Potassium 4.4 mMol/L (3.4-5.1); Sodium 142 mMol/L (136-145); Troponin I < 0.020 ng/mL (0.0-0.045); eGFR > 60 See Note
[2024-12-30] MEDS: SODIUM CHLORIDE 0.9% 1000 ML 1,000 ML 100 ML IV (16:28)
[2024-12-30 17:02] LABS: Procalcitonin 3.02 ng/ml (0.0-0.49)
[2024-12-30 17:03] LABS: Lactate (Lactic Acid) 0.7 mMol/L (0.4-2.0)
[2024-12-30] MEDS: cefTRIAXone 2 GM in SODIUM CHLORIDE 0.9% (Popper) 50 ML IV (17:33)
--- NOTE | 2024-12-30 17:49 | PD.RESHP ---
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 Her daughter is at the bedside. She reports the patient has started to become weak since the weekend and hope oral intake decreased, she is not able to fully swallow fluid food, but is able to swallow water. She reports that she coughs when she tries to swallow the food. Patient is following up with radiation oncology and has 2 radiation treatment left. She denies that the patient reported any dysuria, nausea, vomiting, bloody stools, patient herself denies abdominal pain. She usually can ambulate with support of her daughter, but today she was not able to lift her up. In the ED she was hemodynamically stable, afebrile, tachypneic, on 6 L nasal cannula. Lab work showed leukocytosis of 15.1, hemoglobin 6.9, hematocrit 21.8, platelets 469, coagulogram showed INR of 1.6, BNP 405, procalcitonin 3.02, lactic acid 0.7. UA is pending. Chest x-ray showed bibasilar pneumonia. EKG showed sinus rhythm. Urine and blood cultures were sent. In the ED she received Albuterol inhalations and 2 unit of pRBC was ordered to transfuse. Patient is going to be admitted due to community-acquired pneumonia, failure to thrive and dysphagia due to squamous cell carcinoma of the tongue. Social history: Lives at home with daughter, used to be a longtime smoker, quit 15 years ago, denies current alcohol use. Medications: Pramipexole 4.5 mg, vitamin D, albuterol inhaler with, sertraline 50 mg, loratadine, aripiprazole 10 mg, montelukast 10 mg, donepezil 10 mg, melatonin 3 mg, pregabalin 300 mg, Rexulti 1 mg, hydrocodone 5?325, docusate, levothyroxine 50 mcg Review of Systems Review of Systems Narrative Review of Systems: General: Denies weight loss, fever and chills. Reports general weakness. HEENT: Blind in both yeys, only light sensation, hearing loss Resp: Denies SOB, cough and wheezing. CVS: Denies palpitations and CP. GI: Denies abdominal pain, nausea, vomiting and diarrhea. : Denies dysuria and urinary frequency. MSK: Denies myalgia and joint pain. Denies rash and pruritus. Neuro: Denies headache and syncope. Past Medical History Past Medical History NEUROLOGIC: Positive Neurological Disorders and Dementia (12/2024 BEING TESTED) CARDIAC: Positive Cardiac Disorders RESPIRATORY: Positive Chronic Obstructive Pulmonary Disease (COPD) ENT: Positive Blind and Deafness ENDOCRINE: Positive Endocrine Disorders and Hypothyroidism PSYCHO/SOCIAL: Positive Depression OTHER HISTORY: Positive Chemotherapy (TONGUE CANCER) and Cancer (TONGUE) Surgical History SURGICAL: Positive Hysterectomy Social History SMOKING STATUS: Unknown if ever smoked SUBSTANCE USE: does not use Exam Vital Signs Temp Pulse Resp BP Pulse Ox O2 Del Method O2 Flow Rate 100.4 F 83 15 124/62 93 L Room Air 6 12/30/24 14:14 12/30/24 15:14 12/30/24 15:14 12/30/24 14:14 12/30/24 15:14 12/30/24 14:14 12/30/24 15:14 Narrative Exam Physical Exam General: Awake, generally weak. Hoarse quiet voice. HEENT: Normocephalic, atraumatic, mucous membranes moist. Brown colored mucus on the dorsum of the tongue. Heart: Regular rate and rhythm, no murmurs. Lungs: Mild bibasilar crackles. Abdomen: Soft, nondistended, nontender, positive bowel sounds. ?No guarding or rebound tenderness. Neurologic:No gross neurological deficit, and patient able to move all 4 extremities. Extremities: No edema. Skin: Small ecchymoses on the arms. Results: Labs 12/31/24 03:24 12/31/24 03:24 Labs: Short CBC 12/30/24 Range/Units 15:05 WBC 15.1 H (3.6-11.0) Thou/mm3 Hgb 6.9 L* (12.0-16.0) g/dL Hct 21.8 L* (36.0-46.0) % Plt Count 469 H (140-440) Thou/mm3 BMP 12/30/24 15:05 Sodium 142 Potassium 4.4 Chloride 105 Carbon Dioxide 28.0 BUN 19 Creatinine 0.9 Glucose 109 H Calcium 8.7 Cardiac Enzymes 12/30/24 Range/Units 15:05 Troponin I < 0.020 (0.0-0.045) ng/mL Liver Function 12/30/24 Range/Units 15:05 Total Bilirubin 0.3 (0.3-1.2) mg/dL AST 16 (0-34) U/L ALT 8 L (10-49) U/L Alkaline Phosphatase 64 (46-116) U/L Albumin 3.3 L (3.4-4.8) gm/dL Quality Measures Quality Measures VTE prophylaxis Advance care planning discussed with:: child Medications Home Medications and Allergies Home Medications ?Medication ?Instructions ?Recorded ?Confirmed ?Type albuterol sulfate 90 mcg/actuation 1 puff inhalation Q4H PRN sob 12/05/21 12/30/24 History aerosol inhaler ipratropium 0.5 mg-albuterol 3 mg 3 ml inhalation Q6H PRN sob 12/05/21 12/30/24 History (2.5 mg base)/3 mL nebulization soln levothyroxine 25 mcg tablet 25 mcg PO QAM 12/05/21 12/30/24 History losartan 25 mg tablet 25 mg PO QDAY 12/05/21 12/30/24 History pramipexole 2.25 mg 2.25 mg PO QPM 12/05/21 12/30/24 History tablet,extended release 24 hr sertraline 50 mg tablet 50 mg PO QDAY 12/05/21 12/05/21 History lorazepam 1 mg tablet 0.5 mg PO Q12H 12/30/24 12/30/24 History montelukast 10 mg tablet 10 mg PO QPM 12/30/24 12/30/24 History pregabalin 300 mg capsule 300 mg PO Q12H 12/30/24 12/30/24 History Allergies Allergy/AdvReac Type Severity Reaction Status Date / Time Penicillins Allergy Intermediate Rash Verified 12/30/24 13:14 Visit Medications Acetaminophen (Acetaminophen 325 Mg Tablet) 650 mg PO Q6H PRN PRN Reason: Fever >100.4 or Pain Stop: 01/29/25 17:42 Albuterol/Ipratropium (Albuterol/Ipratropium (Duoneb) Rt Usha 3 Ml Nebu) 3 ml INH Q8HRRT JOSE Stop: 01/29/25 22:59 Enoxaparin Sodium (Enoxaparin Sod Inj 40 Mg/0.4 Ml Syringe) 40 mg SC QDAY JOSE Stop: 01/14/25 08:59 Sodium Chloride (Ns) 1,000 mls @ 100 mls/hr IV .Q10H ONE Stop: 12/31/24 00:21 Last Admin: 12/30/24 16:28 Dose: 100 mls/hr Azithromycin 500 mg/ Sodium (Chloride) 250 mls @ 250 mls/hr IV QDAY JOSE Stop: 01/07/25 08:59 Lactated Ringer's (Lactated Ringers) 1,000 mls @ 75 mls/hr IV .[id number] JOSE Stop: 12/31/24 20:24 Magnesium Hydroxide (Milk Of Magnesia Susp 30 Ml Udc) 30 ml PO QDAY PRN; Protocol PRN Reason: CONSTIPATION Stop: 01/29/25 17:42 Ondansetron HCl (Ondansetron Inj 2 Mg/Ml Inj 2 Ml) 4 mg IV Q6H PRN; Protocol PRN Reason: NAUSEA OR VOMITING Stop: 01/29/25 17:42 Sennosides (Senna Tablet) 1 tab PO QDAY [facility]; Protocol Stop: 01/30/25 08:59 Discontinued Medications Albuterol/Ipratropium (Albuterol/Ipratropium (Duoneb) Rt Usha 3 Ml Nebu) 3 ml INH X1 ONE Stop: 12/30/24 14:23 Last Admin: 12/30/24 14:55 Dose: 3 ml Ceftriaxone Sodium 2 gm/ (Sodium Chloride) 50 mls @ 100 mls/hr IV X1 ONE Stop: 12/30/24 16:49 Last Admin: 12/30/24 17:33 Dose: 100 mls/hr Azithromycin 500 mg/ Sodium (Chloride) 250 mls @ 250 mls/hr IV X1 ONE Stop: 12/30/24 17:29 Assessment & Plan Plan The patient is a 89 female with a previous medical history of COPD on 3.5 L of oxygen at home, hypertension, 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 Patient was admitted due to community-acquired pneumonia, failure to thrive and dysphagia due to squamous cell carcinoma of the tongue. 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 Per daughter had dysphagia has gradually worsened recently. She is interested in PEG tube placement to improve nutrition. Plan: ?Duration precautions ? Oral care ? Speech therapy ? GI consultation for PEG tube placement ? Dietitian consultation - aspiration precautions - clear liquid diet #Anemia DDx: Iron deficiency vs anemia of chronic disease. Per daughter, she denies bloody bowel movements. Plan: - monitor CBC - reticulocyte count - iron panel pending - 2 units of pRBC transfusion - GI consultation ordered #Acute on chronic respiratory failure #Community-acquired pneumonia #History of COPD Plan: ? Oxygen delivery as needed, goal SaO2 88 to 92% ? DuoNeb as needed ? Ceftriaxone 12/30/2024?current ? Azithromycin 12/31/2019 25?current - sputum, blood culture ordered #Hypertension ?Home medication on hold due to normal blood pressure #Hypothyroidism ?Levothyroxine 50 mcg daily #Restless leg syndrome ? Pramipexole 4.5 mg daily #Depression Plan: ? Sertraline 50 mg daily #Chronic pain Patient reported that patient has any negative reaction to opioids, can become agitated. Plan: ? Tylenol for pain control as needed ? Try to evade using opiate medications #Blindness secondary to macular degeneration #Hearing loss Chronic conditions, stable Health maintenance: FEN: clear liquid diet DVT prophylaxis: lovenox 40 sc GI prophylaxis: none Dispo: med tele CODE STATUS: DNR, daughter is okay with artificial feedings Plan of care discussed with attending Dr. Bee, PGY-[address] Muñoz and PGY-[address] Whittaker. Areli Cm MD, PGY 1. Attending Provider Attestation/Addendum Mariia, Chantale Bee DO, attest that I was physically present for the mistry portions of the service and evaluated the patient with the resident and I reviewed and discussed the case with the resident and agree with the resident's findings and plans of care as documented above Patient is an 81-year-old female with past medical history of COPD on 3-1/2 L nasal cannula, schema cell carcinoma of the tongue s/p radiation, hypertension, depression, hypothyroidism who was brought to the ED by her daughter due to poor p.o. intake in the past week and generalized weakness. She is also noted to have worsening shortness of breath in the morning and wheezing. Daughter is a respiratory therapist and noticed that the patient was not improving with her nebulizer treatments at home and subsequently brought her to the ED. Patient appears to have dry oral mucosa with some scabbing over her lips. She is also noted to have some anemia with a hemoglobin of 6.9 on presentation. Patient complains of ear pain and neck pain on the left side where the site of her squamous cell carcinoma is located. Daughter states that the patient does not want to drink any water or eat. She feels that the patient has not received adequate nutritional intake and would like for patient to also receive a PEG tube. Patient was noted to have a fever in the ER and found to have bibasilar pneumonia on chest x-ray. Patient was on 4 L at time of evaluation with some congestion bilaterally. Will admit patient to med/telemetry for further workup medical management of acute on chronic hypoxic respiratory failure secondary to pneumonia. Will cover for community-acquired pneumonia with azithromycin and Rocephin. Suspect acute blood loss anemia secondary to the squamous cell carcinoma that appears to have occasional bleeding after radiation therapy as per daughter. Will transfuse 1 unit of PRBCs. Will consult GI for PEG tube placement due to failure to thrive.
[2024-12-30] MEDS: AZITHROMYCIN INJ 500 MG in SODIUM CHLORIDE 0.9% 250 ML 250 ML 250 MG IV (19:13)
[2024-12-30] MEDS: RINGERS LACTATED 1000 ML 1,000 ML 75 ML IV (20:30)
--- NOTE | 2024-12-30 21:15 | PC.NURSE ---
Pt's daughter at bedside attempting to give pt all her regular nighttime meds out of her personal supply. MD at bedside and home meds reconciled/ordered. Informed daughter that home meds will be administered by staff using hospital supplied meds, excluding Pramipexole which will need to be sent to pharmacy. Pt's daughter gave pt Pramipexole here in the ER which was documented in the MAR for record keeping purposes. Pt then transferred to tele unit.
--- NOTE | 2024-12-30 21:36 | PC.NURSE ---
Called blood bank as it says in TAR BBK is locked. Tried troubleshooting but still unable to chart vitals in TAR. Blood started at 2114. Vitals rechecked at 2129.
--- NOTE | 2024-12-30 22:24 | PD.IMCONS ---
HPI Data of Consult Requesting Physician: Chantale Bee DO Primary Care Provider: JUAN Powers Consult Narrative Reason for consult: Failure to thrive H/H 6.9/21.8 History of present illness: 89 years old female brought to the emergency room for dysphagia difficulty swallowing and feeling very weak She has squamous cell carcinoma of the base of the tongue currently undergoing radiation therapy 2 radiation treatments left and also on Keytruda Patient also dropped her hemoglobin hematocrit to 6.9 and 21.8 and it was 9.3 and 28.5 on 11/02/2024 cc:: cc: Chantale Bee DO Review of Systems Review of Systems Systems Reviewed: All systems reviewed, normal except as documented Past Medical History Surgical History OTHER SURGICAL HX: COPD on 3.5 L nasal cannula Hypertension Legally 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 Hypothyroidism Squamous cell carcinoma of the tongue undergoing radiation and chemotherapy Meds Home Medications and Allergies Home Medications ?Medication ?Instructions ?Recorded ?Confirmed ?Type albuterol sulfate 90 mcg/actuation 1 puff inhalation Q4H PRN sob 12/05/21 12/30/24 History aerosol inhaler ipratropium 0.5 mg-albuterol 3 mg 3 ml inhalation Q6H PRN sob 12/05/21 12/30/24 History (2.5 mg base)/3 mL nebulization soln levothyroxine 25 mcg tablet 25 mcg PO QAM 12/05/21 12/30/24 History losartan 25 mg tablet 25 mg PO QDAY 12/05/21 12/30/24 History pramipexole 2.25 mg 2.25 mg PO QPM 12/05/21 12/30/24 History tablet,extended release 24 hr sertraline 50 mg tablet 50 mg PO QDAY 12/05/21 12/05/21 History lorazepam 1 mg tablet 0.5 mg PO Q12H 12/30/24 12/30/24 History montelukast 10 mg tablet 10 mg PO QPM 12/30/24 12/30/24 History pregabalin 300 mg capsule 300 mg PO Q12H 12/30/24 12/30/24 History Allergies Allergy/AdvReac Type Severity Reaction Status Date / Time Penicillins Allergy Intermediate Rash Verified 12/30/24 13:14 Exam Vital Signs Temp Pulse Resp BP Pulse Ox O2 Del Method O2 Flow Rate 98.2 F 79 20 125/56 L 96 Nasal Cannula 4.5 12/30/24 21:30 12/30/24 21:30 12/30/24 21:30 12/30/24 21:30 12/30/24 21:30 12/30/24 21:30 12/30/24 21:30 Constitutional Comments: Chronically ill Routine Respiratory Exam Comments: Normal to auscultation Routine Abdominal Exam Comments: Soft nontender Results Labs 12/30/24 15:05 12/30/24 15:05 Labs: Short CBC 12/30/24 Range/Units 15:05 WBC 15.1 H (3.6-11.0) Thou/mm3 Hgb 6.9 L* (12.0-16.0) g/dL Hct 21.8 L* (36.0-46.0) % Plt Count 469 H (140-440) Thou/mm3 BMP 12/30/24 15:05 Sodium 142 Potassium 4.4 Chloride 105 Carbon Dioxide 28.0 BUN 19 Creatinine 0.9 Glucose 109 H Calcium 8.7 Cardiac Enzymes 12/30/24 Range/Units 15:05 Troponin I < 0.020 (0.0-0.045) ng/mL Liver Function 12/30/24 Range/Units 15:05 Total Bilirubin 0.3 (0.3-1.2) mg/dL AST 16 (0-34) U/L ALT 8 L (10-49) U/L Alkaline Phosphatase 64 (46-116) U/L Albumin 3.3 L (3.4-4.8) gm/dL Assessment and Plan Additional Assessment & Plan Additional Plan: # Anemia blood loss # Failure to thrive # Squamous cell carcinoma of the tongue undergoing chemotherapy and radiation therapy Plan spoke with the daughter Alis Chowdhury telephone number [phone] Case discussed and permission obtained for upper endoscopy with possible placement of a gastrostomy feeding tube endoscopically under intravenous moderate sedation Procedure scheduled for tomorrow Thank you very much for the opportunity to participate in the care of this patient
[2024-12-30] MEDS: GABAPENTIN 300 MG CAPSULE PO (22:43)
[2024-12-30] MEDS: MELATONIN 3 MG TABLET 6 MG PO (22:45)
[2024-12-30] MEDS: DONEPEZIL HCL 5 MG TABLET 10 MG PO (22:45)
[2024-12-30] MEDS: LORazepam 0.5 MG TABLET PO (22:46)
[2024-12-31] VITALS (21 sets, daily range): BP systolic 126–164; BP diastolic 53–103; PULSE 74–100; RESP 10–28; TEMP 36.4–37.2; O2SAT 90–100; BMI 21.2
--- NOTE | 2024-12-31 00:43 | PC.NURSE ---
Blood transfusion stopped at 0010 BP 151/73 HR 76 RR 19 O2 94% on 4.5L no ar noted. BBK locked unable to access in TAR. Lab unable to fix at thsi time.
--- NOTE | 2024-12-31 02:44 | XR_ITS ---
Examination: Urinary bladder sonography TECHNIQUE: Grayscale sonographic images urinary bladder Exam date and time: December 31, 2024 0822 hours INDICATIONS: Unable to urinate today FINDINGS: Galindo catheter appears posterior to the bladder Bladder prevoid volume 228 cc unable to void IMPRESSION: Recommend CT scan pelvis follow-up to exclude abnormal position of the urinary Galindo catheter
[2024-12-31 03:57] LABS: Basophils % (Auto) 0 % (0-2.5); Eosinophils # (Auto) 0.2 Thou/mm3 (0.0-0.5); Eosinophils % (Auto) 2 % (0-10); Hematocrit 24.6 % (36.0-46.0); Hemoglobin 8.1 g/dL (12.0-16.0); Immature Granulocytes % (Auto) 1 % (0-0); Immature Granulocytes Auto 0.11 Thou/mm3 (0.00-0.00); Immature Reticulocyte Fraction 9.6 % (3.0-15.9); Lymphocytes # (Auto) 0.6 Thou/mm3 (1.0-4.8); Lymphocytes % (Auto) 5 % (10-50); Mean Corpuscular HGB Conc 32.9 g/dl (31.0-37.0); Mean Corpuscular Volume 79 fL (80-100); Monocytes # (Auto) 0.9 Thou/mm3 (0.0-0.8); Monocytes % (Auto) 8 % (0-12); Neutrophils # (Auto) 8.6 Thou/mm3 (1.8-7.7); Neutrophils % (Auto) 83 % (37-80); Nucleated Red Blood Cell # 0.02 Thou/mm3 (0.00-0.00); Nucleated Red Blood Cell % 0 /100 WBC (0); Platelet Count 408 Thou/mm3 (140-440); RDW Standard Deviation 50.6 fL (36.4-46.3); Red Blood Count 3.11 Miln/mm3 (4.00-5.20); Reticulocyte % (Auto) 1.1 % (0.5-1.5); Reticulocyte Absolute Auto 35.1 Biln/L (25.0-75.0); White Blood Count 10.4 Thou/mm3 (3.6-11.0)
[2024-12-31 04:05] LABS: Anion Gap 10 (7-16); BUN/Creatinine Ratio 18 Ratio (12-20); Blood Urea Nitrogen 14 mg/dL (9-23); Calcium 8.5 mg/dL (8.3-10.6); Carbon Dioxide 26.5 mMol/L (20.0-31.0); Chloride 108 mMol/L (98-107); Creatinine (Component) 0.8 mg/dL (0.6-1.3); Estimated Creatinine Clearance 45.5 mL/min (>60); Glucose 90 mg/dL (74-106); Magnesium 1.9 mg/dL (1.6-2.6); Osmolality,Calculated 287 (275-295); Phosphorous 3.6 mg/dL (2.4-5.1); Potassium 3.8 mMol/L (3.4-5.1); Sodium 144 mMol/L (136-145); eGFR > 60 See Note
[2024-12-31 04:17] LABS: Ferritin 180 ng/mL (7.3-270.7); Iron < 5 mcg/dL (50-170); Percent Iron Saturation 2 % (20-55); Total Iron Binding Capacity 174 mcg/dL (250-425); Unsaturated Iron Binding 169 (225-295)
[2024-12-31] MEDS: LEVOTHYROXINE SODIUM 25 MCG TABLET 50 MCG PO (05:29)
[2024-12-31 07:15] LABS: Respiratory Syncytial Virus Ag Negative (Negative)
[2024-12-31] MEDS: ALBUTEROL/IPRATROPIUM (Duoneb) RT SOL 3 ML NEBU INH ×3 (07:23→22:34)
[2024-12-31] MEDS: PANTOPRAZOLE INJ 40 MG VIAL IV (08:06)
[2024-12-31] MEDS: cefTRIAXone/D5w 1gm IV premix 50 ML IV (08:06)
[2024-12-31] MEDS: AZITHROMYCIN INJ 500 MG in SODIUM CHLORIDE 0.9% 250 ML 250 ML 250 MG IV (09:33)
--- NOTE | 2024-12-31 11:14 | PC.DIETICIAN ---
Dietitian consult: *Start Jevity 1.5 at 20ml/hr via Gtube by pump as tolerated, increase by 10ml Q8hrs to goal of 50ml/hr to provide 1200 ml total volume, 1800kcal,76g protein. If no IVF give water flush 150ml Q 4 hours. *Consider syringe feed upon discharge per dtr request: Jevity 1.5 start 237ml 5x/day= 1185ml total vol, 75g protein, 1775kcal. Give water flush 90ml before and after each feed. Thank you
--- NOTE | 2024-12-31 12:52 | PC.SS ---
SS met with patient and dtr, Alis regarding d/c patient's dc plan.? Pt is confused.? Pt was admitted for Failure to Thrive.? Dtr confirmed patient's demographic and contact information is correct on facesheet.? Pt resides with dtr, Alis and granddaughter.? Per dtr, pt requires total assistance to transfer.? Pt has wheelchair, hospital bed, and uses 3 liters of O2 at home from [facility].? Pt is currently on 7 liters of O2.? Pt requires assistance with all ADLs.? Dtr, Alis Chowdhury is patient's medical decision maker.? SS provided verbal d/c options for home or SNF.? Daughter's is requesting for pt to return home upon d/c.? Pt is established with [facility] and dtr is now requesting [facility].? Per dtr, [facility] was arranged by PCP.? Dtr states pt has 2 more radiation therapy sessions at [facility].? Patient's Oncologist is Dr. Pinot.?? D/C plan:? Return home Next of Kin:? Alis Chowdhury, daughter, phone# [phone] PCP:? Dr. Jackie Brennan from [facility] Address:? Correct on facesheet HH: [facility]?
--- NOTE | 2024-12-31 13:53 | PC.CM ---
I was informed by Aida that patient was opened to [facility] home health. Family told Aida that the doctors office set up home health with [facility]. Family would like to have [facility] home health instead of [facility] when patient is ready to discharge.
[2024-12-31] MEDS: RINGERS LACTATED 1000 ML 1,000 ML 75 ML IV (14:56)
--- NOTE | 2024-12-31 15:39 | ESPR_ITS ---
<Statement entered by Phyllis Muñoz MD - 01/01/25 10:23> Patient was seen and examined by me personally. I have directly supervised and reviewed documentation by the team resident and agree with its findings with any exceptions or additional findings as below. Plan of care was discussed with the attending, Dr. Bee. Patient continues to barely be able to eat, can take some PO meds with water but otherwise not eating solids. Patient is planned for PEG tube placement tonight. US of the bladder was done because Galindo was difficult to be placed and there has not been any draining urine. Bladder scan had been showing 300 cc. It was showing abnormal positioning of the Galindo. Therefore will entirely remove Galindo and try purewick. Per patient's daughter she is interested in [facility] [employer] [facility] as previously the patient had [facility] but this service was sometimes too far, will coordinate with case management for discharge. Phyllis Muñoz, PGY-2 Documentation for date of: 12/31/24 Subjective Subjective Interval history: Patient was seen and examined by the bedside. No acute overnight events. Patient appears weak, voice coarse. Saturates well on 6 L NC. Patient continues to have dysphagia, during the night Galindo catheter was attempted to be placed, but the catheter was not draining urine despite bladder scan showing at least 300 ml of urine. US of the bladder showed that the Galindo is located under the bladder, most likely in vaginal canal. Patient denies abdominal pain, there is no blood in the catheter tubing, it was decided to remove the Galindo catheter and proceed with pure wick. EGD for PEG tube placement is planned for today. Exam Vital Signs Temp Pulse Resp BP Pulse Ox O2 Del Method O2 Flow Rate 98.9 F 75 28 H 126/63 96 Nasal Cannula 6 12/31/24 12:00 12/31/24 12:00 12/31/24 12:00 12/31/24 12:00 12/31/24 12:00 12/31/24 12:12/31/24 12:00 Narrative Exam Physical Exam General: Awake, generally weak. Hoarse quiet voice. HEENT: Normocephalic, atraumatic, mucous membranes moist. Brown colored mucus on the dorsum of the tongue. Heart: Regular rate and rhythm, no murmurs. Lungs: Mild bibasilar crackles. Abdomen: Soft, nondistended, nontender, positive bowel sounds. ?No guarding or rebound tenderness. Neurologic:No gross neurological deficit, and patient able to move all 4 extremities. Extremities: No edema. Skin: Small ecchymoses on the arms. Objective Labs 01/01/25 04:45 01/01/25 04:45 Labs: Laboratory Results - last 24 hr 12/30/24 12/30/24 12/31/24 15:05 16:41 03:24 WBC 10.4 RBC 3.11 L Hgb 8.1 L Hct 24.6 L MCV 79 L MCH 26.0 MCHC 32.9 RDW Std Deviation 50.6 H Plt Count 408 D Neut % (Auto) 83 H Lymph % (Auto) 5 L [place] % (Auto) 8 Eos % (Auto) 2 Baso % (Auto) 0 Neut # (Auto) 8.6 H Lymph # (Auto) 0.6 L [place] # (Auto) 0.9 H Eos # (Auto) 0.2 Baso # (Auto) 0.0 Immature Gran # (Auto) 0.11 H Absolute Nucleated RBC 0.02 H Immature Gran % 1 H Nucleated RBC % 0 Retic Count (auto) 1.1 Absolute Retic 35.1 Immature Retic Fraction 9.6 Retic Hgb Content CHr 20.0 L Sodium 142 144 Potassium 4.4 3.8 D Chloride 105 108 H Carbon Dioxide 28.0 26.5 Anion Gap 9 10 BUN 19 14 Creatinine 0.9 0.8 Estim Creat Clear Calc 38.6 L 45.5 L eGFR > 60 > 60 BUN/Creatinine Ratio 21 H 18 Glucose 109 H 90 Calculated Osmolality 286 287 Lactic Acid 0.7 Calcium 8.7 8.5 Corrected Calcium 9.3 Phosphorus 3.6 Magnesium 2.1 1.9 Iron < 5 L TIBC 174 L Iron Saturation 2 L Unsat Iron Binding 169 L Ferritin 180 Total Bilirubin 0.3 AST 16 ALT 8 L Alkaline Phosphatase 64 Troponin I < 0.020 Total Protein 6.0 Albumin 3.3 L Globulin 2.7 Albumin/Globulin Ratio 1.2 Procalcitonin 3.02 H RSV Rapid Blood Type O Positive Antibody Screen NEGATIVE Crossmatch See Detail Blood Bank Wristband ID Yes 12/31/24 05:37 WBC RBC Hgb Hct MCV MCH MCHC RDW Std Deviation Plt Count Neut % (Auto) Lymph % (Auto) [place] % (Auto) Eos % (Auto) Baso % (Auto) Neut # (Auto) Lymph # (Auto) [place] # (Auto) Eos # (Auto) Baso # (Auto) Immature Gran # (Auto) Absolute Nucleated RBC Immature Gran % Nucleated RBC % Retic Count (auto) Absolute Retic Immature Retic Fraction Retic Hgb Content CHr Sodium Potassium Chloride Carbon Dioxide Anion Gap BUN Creatinine Estim Creat Clear Calc eGFR BUN/Creatinine Ratio Glucose Calculated Osmolality Lactic Acid Calcium Corrected Calcium Phosphorus Magnesium Iron TIBC Iron Saturation Unsat Iron Binding Ferritin Total Bilirubin AST ALT Alkaline Phosphatase Troponin I Total Protein Albumin Globulin Albumin/Globulin Ratio Procalcitonin RSV Rapid Negative Blood Type Antibody Screen Crossmatch Blood Bank Wristband ID Quality Measures Quality Measures VTE prophylaxis Advance care planning discussed with:: other Assessment & Plan Assessment Current Active Medications: Generic Name Dose Route Start Last Admin Trade Name Freq PRN Reason Stop Dose Admin Acetaminophen 650 mg 12/30/24 17:43 Acetaminophen 325 Mg Tablet PO 01/29/25 17:42 Q6H PRN Fever >100.4 or Pain 1-3 Albuterol/Ipratropium 3 ml 12/30/24 23:00 12/31/24 07:23 Albuterol/Ipratropium (Duoneb) Rt Usha 3 Ml Nebu INH 01/29/25 22:59 3 ml Q8HRRT JOSE Administration Pramipexole Er 45 Mg 0 ea 12/31/24 21:00 Tablet PO 01/30/25 20:59 HS JOSE Donepezil HCl 10 mg 12/30/24 21:00 12/30/24 22:45 Donepezil Hcl 5 Mg Tablet PO 01/29/25 20:59 10 mg HS JOSE Administration Enoxaparin Sodium 40 mg 12/31/24 09:00 12/31/24 09:34 Enoxaparin Sod Inj 40 Mg/0.4 Ml Syringe SC 01/14/25 08:59 Not Given QDAY JOSE Gabapentin 300 mg 12/30/24 21:00 12/31/24 09:34 Gabapentin 300 Mg Capsule PO 01/29/25 20:59 Not Given BID JOSE Lactated Ringer's 1,000 mls @ 75 mls/hr 12/30/24 17:45 12/31/24 14:56 Lactated Ringers IV 12/31/24 20:24 75 mls/hr .[id number] JOSE Administration Ceftriaxone Sodium/Dextrose 50 mls @ 100 mls/hr 12/31/24 09:00 12/31/24 08:06 Rocephin/D5w 1gm Iv Premix IV 01/07/25 08:59 100 mls/hr QDAY JOSE Administration Azithromycin 500 mg/ Sodium 250 mls @ 250 mls/hr 12/31/24 09:00 12/31/24 09:33 Chloride IV 01/03/25 17:47 250 mls/hr QDAY JOSE Administration Levothyroxine Sodium 50 mcg 12/31/24 06:00 12/31/24 05:29 Levothyroxine Sodium 25 Mcg Tablet PO 01/30/25 05:59 50 mcg ACBR JOSE Administration Lorazepam 0.5 mg 12/31/24 21:00 Lorazepam 0.5 Mg Tablet PO 01/05/25 20:59 Q12HR PRN AGITATION OR ANXIETY Magnesium Hydroxide 30 ml 12/30/24 17:43 Milk Of Magnesia Susp 30 Ml Udc PO 01/29/25 17:42 QDAY PRN CONSTIPATION Protocol Melatonin 6 mg 12/30/24 21:00 12/30/24 22:45 Melatonin 3 Mg Tablet PO 01/29/25 20:59 6 mg HS JOSE Administration Ondansetron HCl 4 mg 12/30/24 17:43 Ondansetron Inj 2 Mg/Ml Inj 2 Ml IV 01/29/25 17:42 Q6H PRN NAUSEA OR VOMITING Protocol Pantoprazole Sodium 40 mg 12/31/24 09:00 12/31/24 08:06 Pantoprazole Inj 40 Mg Vial IV 01/30/25 08:59 40 mg QDAY JOSE Administration Sennosides 1 tab 12/31/24 09:00 12/31/24 09:34 Senna Tablet PO 01/30/25 08:59 Not Given QDAY JOSE Protocol Sertraline HCl 50 mg 12/30/24 21:00 12/30/24 20:36 Sertraline Hcl 25 Mg Tablet PO 01/29/25 20:59 Not Given HS JOSE Plan The patient is a 89 female with a previous medical history of COPD on 3.5 L of oxygen at home, hypertension, 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 Patient was admitted due to community-acquired pneumonia, failure to thrive and dysphagia due to squamous cell carcinoma of the tongue. 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 Per daughter had dysphagia has gradually worsened recently. She is interested in PEG tube placement to improve nutrition. Plan: ?Duration precautions ? Oral care ? Speech therapy ? GI consultation for PEG tube placement ? Dietitian consultation - aspiration precautions - clear liquid diet #Anemia of chronic disease Anemia of chronic disease. Iron panel is consistent with anemia of chronic disease. Per daughter, she denies bloody bowel movements. 12/30/24: 2 units of pRBC transfusion 12/31/24: Hgb 8.1. Plan: - monitor CBC - reticulocyte count - GI consultation ordered #Acute on chronic respiratory failure #Community-acquired pneumonia #History of COPD Plan: ? Oxygen delivery as needed, goal SaO2 88 to 92% ? DuoNeb as needed ? Ceftriaxone 12/30/2024?current ? Azithromycin 12/31/2019?current - sputum, blood culture ordered #Hypertension ?Home medication on hold due to normal blood pressure #Hypothyroidism ?Levothyroxine 50 mcg daily #Restless leg syndrome ? Pramipexole 4.5 mg daily #Depression Plan: ? Sertraline 50 mg daily #Chronic pain Patient reported that patient has any negative reaction to opioids, can become agitated. Plan: ? Tylenol for pain control as needed ? Try to evade using opiate medications - resumed home gabapentin #Blindness secondary to macular degeneration #Hearing loss Chronic conditions, stable Health maintenance: FEN: clear liquid diet DVT prophylaxis: lovenox 40 sc GI prophylaxis: none Dispo: med tele CODE STATUS: DNR, daughter is okay with artificial feedings Plan of care discussed with attending Dr. Bee, PGY-[address] Muñoz and PGY-[address] Whittaker. Areli Cm MD, PGY 1. Attending Provider Attestation/Addendum Mariia, Chantale Bee, DO, attest that I was physically present for the mistry portions of the service and evaluated the patient with the resident and I reviewed and discussed the case with the resident and agree with the resident's findings and plans of care as documented above Krista seen and evaluated this AM. H/H remains stable. No acute events overnight. Patient has no acute complaints at this time. She is on 6L/NC. She continues to have mild congestion in b/l Lung guadarrama. Afebrile overnight. Scheduled for PEG tube placement this evening. Patient remains NPO due to high aspiration risk. Will have speech eval once PEG tube is placed. Records Supervisor recs also noted
[2024-12-31] MEDS: LORazepam 0.5 MG TABLET PO (17:28)
--- NOTE | 2024-12-31 20:33 | PC.NURSE ---
Pt to endo for peg placement.
--- NOTE | 2024-12-31 21:39 | PC.NURSE ---
Patient out of endo daughter Alis updated with poc.
--- NOTE | 2024-12-31 21:50 | PC.NURSE ---
Pt back from endo in room alert no s/s of distress. Peg tube in place and abd binder palced. New orders noted.
[2025-01-01] VITALS (9 sets, daily range): BP systolic 128–156; BP diastolic 58–77; PULSE 82–103; RESP 18–30; TEMP 36.3–36.8; O2SAT 92–100; BMI 12.0
[2025-01-01] MEDS: LEVOTHYROXINE SODIUM 25 MCG TABLET 50 MCG PO (05:07)
[2025-01-01 06:00] LABS: Basophils # (Auto) 0.1 Thou/mm3 (0.0-0.2); Basophils % (Auto) 1 % (0-2.5); Eosinophils # (Auto) 0.2 Thou/mm3 (0.0-0.5); Eosinophils % (Auto) 2 % (0-10); Hematocrit 25.1 % (36.0-46.0); Immature Granulocytes % (Auto) 3 % (0-0); Immature Granulocytes Auto 0.25 Thou/mm3 (0.00-0.00); Lymphocytes # (Auto) 0.5 Thou/mm3 (1.0-4.8); Lymphocytes % (Auto) 5 % (10-50); Mean Corpuscular HGB Conc 31.5 g/dl (31.0-37.0); Mean Corpuscular Hemoglobin 25.8 pg (25.0-35.0); Mean Corpuscular Volume 82 fL (80-100); Monocytes # (Auto) 0.6 Thou/mm3 (0.0-0.8); Monocytes % (Auto) 7 % (0-12); Neutrophils % (Auto) 83 % (37-80); Nucleated Red Blood Cell % 0 /100 WBC (0); Platelet Count 417 Thou/mm3 (140-440); RDW Standard Deviation 55.2 fL (36.4-46.3); Red Blood Count 3.06 Miln/mm3 (4.00-5.20); White Blood Count 9.6 Thou/mm3 (3.6-11.0)
[2025-01-01 06:06] LABS: Hemoglobin 7.9 g/dL (12.0-16.0)
[2025-01-01 06:30] LABS: Anion Gap 14 (7-16); BUN/Creatinine Ratio 14 Ratio (12-20); Blood Urea Nitrogen 10 mg/dL (9-23); Calcium 8.4 mg/dL (8.3-10.6); Carbon Dioxide 25.2 mMol/L (20.0-31.0); Chloride 105 mMol/L (98-107); Creatinine (Component) 0.7 mg/dL (0.6-1.3); Glucose 74 mg/dL (74-106); Osmolality,Calculated 284 (275-295); Potassium 3.6 mMol/L (3.4-5.1); Sodium 144 mMol/L (136-145); eGFR > 60 See Note
[2025-01-01] MEDS: ALBUTEROL/IPRATROPIUM (Duoneb) RT SOL 3 ML NEBU INH ×2 (07:52→23:47)
[2025-01-01] MEDS: AZITHROMYCIN INJ 500 MG in SODIUM CHLORIDE 0.9% 250 ML 250 ML 250 MG IV (08:37)
[2025-01-01] MEDS: PANTOPRAZOLE INJ 40 MG VIAL IV (08:38)
[2025-01-01] MEDS: cefTRIAXone/D5w 1gm IV premix 50 ML IV (08:38)
[2025-01-01] MEDS: PREGABALIN 75 MG CAPSULE 300 MG PO (08:38)
[2025-01-01] MEDS: ENOXAPARIN SOD INJ 40 MG/0.4 ML SYRINGE SC (08:38)
[2025-01-01] MEDS: SENNA TABLET 1 TAB PO (08:39)
[2025-01-01] MEDS: LORazepam 0.5 MG TABLET PO ×2 (08:39→20:25)
--- NOTE | 2025-01-01 08:51 | PC.SS ---
Follow up note: Pt had peg tube placement yesterday. Dietary recommendations pending. Pt is on IV antibiotic. Pt will return home with Yara BUSH.
--- NOTE | 2025-01-01 10:00 | CHAP ---
Patient expressed gratitude for visit and prayer.
[2025-01-01] MEDS: PRAMIPEXOLE 0.25 MG TABLET 1.5 MG GT ×2 (13:00→22:12)
--- NOTE | 2025-01-01 16:11 | PD.RESPRO ---
Documentation for date of: 01/01/25 Subjective Subjective Interval history: Patient was seen and examined by the bedside. Saturates well on 5L NC. Patient overnight was agitated, was not able to receive from medication due to being on n.p.o. for pending EGD. PEG tube was successfully placed and she was started on tube feedings. Speech therapy evaluation is pending. Physical therapy has assessed the patient, recommended SNF placement but Dr. Decision-maker is preferring home health. Medication regimen was adjusted for PEG tube administration. Exam Vital Signs Temp Pulse Resp BP Pulse Ox O2 Del Method O2 Flow Rate 98.0 F 85 19 128/58 L 94 L Nasal Cannula 5 01/01/25 12:00 01/01/25 12:00 01/01/25 12:00 01/01/25 12:00 01/01/25 12:00 01/01/25 12:00 01/01/25 12:00 Narrative Exam Physical Exam General: Awake, generally weak. Hoarse quiet voice. HEENT: Normocephalic, atraumatic, mucous membranes dry. Brown colored mucus on the dorsum of the tongue. Heart: Regular rate and rhythm, no murmurs. Lungs: Mild bibasilar crackles. Abdomen: Soft, nondistended, nontender, positive bowel sounds. PEG tube site unremarkable.?No guarding or rebound tenderness. Neurologic:No gross neurological deficit, and patient able to move all 4 extremities. Extremities: No edema. Skin: Small ecchymoses on the arms. Objective Labs 01/02/25 04:54 01/02/25 04:54 Labs: Laboratory Results - last 24 hr 12/30/24 01/01/25 16:41 04:45 WBC 9.6 RBC 3.06 L Hgb 7.9 L Hct 25.1 L MCV 82 MCH 25.8 MCHC 31.5 RDW Std Deviation 55.2 H Plt Count 417 Neut % (Auto) 83 H Lymph % (Auto) 5 L [place] % (Auto) 7 Eos % (Auto) 2 Baso % (Auto) 1 Neut # (Auto) 8.0 H Lymph # (Auto) 0.5 L [place] # (Auto) 0.6 Eos # (Auto) 0.2 Baso # (Auto) 0.1 Immature Gran # (Auto) 0.25 H Absolute Nucleated RBC 0.00 Immature Gran % 3 H Nucleated RBC % 0 Sodium 144 Potassium 3.6 Chloride 105 Carbon Dioxide 25.2 Anion Gap 14 BUN 10 Creatinine 0.7 Estim Creat Clear Calc 52.0 L eGFR > 60 BUN/Creatinine Ratio 14 Glucose 74 Calculated Osmolality 284 Calcium 8.4 Crossmatch See Detail Quality Measures Quality Measures VTE prophylaxis Advance care planning discussed with:: child Assessment & Plan Assessment Current Active Medications: Generic Name Dose Route Start Last Admin Trade Name Freq PRN Reason Stop Dose Admin Acetaminophen 650 mg 12/30/24 17:43 Acetaminophen 325 Mg Tablet PO 01/29/25 17:42 Q6H PRN Fever >100.4 or Pain 1-3 Albuterol/Ipratropium 3 ml 12/30/24 23:00 01/01/25 07:52 Albuterol/Ipratropium (Duoneb) Rt Usha 3 Ml Nebu INH 01/29/25 22:59 3 ml Q8HRRT JOSE Administration Donepezil HCl 10 mg 12/30/24 21:00 12/31/24 20:00 Donepezil Hcl 5 Mg Tablet PO 01/29/25 20:59 Not Given HS JOSE Enoxaparin Sodium 40 mg 12/31/24 09:00 01/01/25 08:38 Enoxaparin Sod Inj 40 Mg/0.4 Ml Syringe SC 01/14/25 08:59 40 mg QDAY JOSE Administration Ceftriaxone Sodium/Dextrose 50 mls @ 100 mls/hr 12/31/24 09:00 01/01/25 08:38 Rocephin/D5w 1gm Iv Premix IV 01/07/25 08:59 100 mls/hr QDAY JOSE Administration Azithromycin 500 mg/ Sodium 250 mls @ 250 mls/hr 12/31/24 09:00 01/01/25 08:37 Chloride IV 01/03/25 17:47 250 mls/hr QDAY JOSE Administration Levothyroxine Sodium 50 mcg 12/31/24 06:00 01/01/25 05:07 Levothyroxine Sodium 25 Mcg Tablet PO 01/30/25 05:59 50 mcg ACBR JOSE Administration Lorazepam 0.5 mg 12/31/24 17:45 01/01/25 08:39 Lorazepam 0.5 Mg Tablet PO 01/05/25 17:44 0.5 mg Q12HR JOSE Administration Magnesium Hydroxide 30 ml 12/30/24 17:43 Milk Of Magnesia Susp 30 Ml Udc PO 01/29/25 17:42 QDAY PRN CONSTIPATION Protocol Melatonin 6 mg 12/30/24 21:00 12/31/24 20:00 Melatonin 3 Mg Tablet PO 01/29/25 20:59 Not Given HS JOSE Ondansetron HCl 4 mg 12/30/24 17:43 Ondansetron Inj 2 Mg/Ml Inj 2 Ml IV 01/29/25 17:42 Q6H PRN NAUSEA OR VOMITING Protocol Pantoprazole Sodium 40 mg 12/31/24 09:00 01/01/25 08:38 Pantoprazole Inj 40 Mg Vial IV 01/30/25 08:59 40 mg QDAY JOSE Administration Pramipexole Dihydrochloride 1.5 mg 01/01/25 14:00 01/01/25 13:00 Pramipexole 0.25 Mg Tablet GT 01/31/25 13:59 1.5 mg TID JOSE Administration Pregabalin 300 mg 01/01/25 21:00 Pregabalin 75 Mg Capsule GT 01/30/25 20:59 Q12HR JOSE Sennosides 1 tab 01/01/25 12:18 Senna Tablet GT 01/30/25 08:59 QDAY JOSE Protocol Sertraline HCl 50 mg 12/30/24 21:00 12/31/24 20:00 Sertraline Hcl 25 Mg Tablet PO 01/29/25 20:59 Not Given HS JOSE Plan The patient is a 89 female with a previous medical history of COPD on 3.5 L of oxygen at home, hypertension, 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 Patient was admitted due to community-acquired pneumonia, failure to thrive and dysphagia due to squamous cell carcinoma of the tongue. #Failure to thrive #Dysphagia #Squamous cell carcinoma of the tongue #General weakness #Frailty Patient has a history of squamous cell carcinoma of the lung, status post radiotherapy on diagnosed in 2023. Per daughter had dysphagia has gradually worsened recently. She is interested in PEG tube placement to improve nutrition. Plan: ?Duration precautions ? Oral care ? Speech therapy eval pending ? GI consultated, appreciate recommendations ? PEG tube site wound care ? Dietitian consulted, appreciate recommendations - aspiration precautions -PEG-tube feedings #Anemia of chronic disease Anemia of chronic disease. Iron panel is consistent with anemia of chronic disease. Reticulocyte count is elevated Per daughter, she denies bloody bowel movements. 12/30/24: 2 units of pRBC transfusion 12/31/24: Hgb 8.1. Plan: - monitor CBC - GI consultated, appreciate recs #Acute on chronic respiratory failure #Community-acquired pneumonia #History of COPD Blood culture preliminary negative, sputum culture grew gram-positive cocci, MRSA screen negative. Plan: ? Oxygen delivery as needed, goal SaO2 88 to 92% ? DuoNeb as needed ? Ceftriaxone 12/30/2024?current ? Azithromycin 12/31/2019?current #Hypertension ?Home medication on hold due to normal blood pressure #Hypothyroidism ?Levothyroxine 50 mcg daily #Restless leg syndrome ?Patient was on Pramipexole ER 4.5 mg daily, which is not crushable. - Pramipexole 1.5 mg TID throug G-tube #Depression Plan: ? Sertraline 50 mg daily #Chronic pain Patient reported that patient has any negative reaction to opioids, can become agitated. Plan: ? Tylenol for pain control as needed ? Try to evade using opiate medications - resumed home gabapentin #Blindness secondary to macular degeneration #Hearing loss Chronic conditions, stable Health maintenance: FEN: tube feeds DVT prophylaxis: lovenox 40 sc GI prophylaxis: none Dispo: med tele CODE STATUS: DNR, daughter is okay with artificial feedings Plan of care discussed with attending Dr. Bee, PGY-[address] Muñoz and PGY-[address] Whittaker. Areli Cm MD, PGY 1. -- ATTESTATION: I saw and examined the patient this morning, and I agree with current management stated by the resident. Will continue to monitor patient during their stay. Patient is over 89-year-old female with history of squamous cell carcinoma of the tongue, COPD on 3 L and a half of oxygen at home, hypertension, blindness, hearing loss was admitted due to failure to thrive. Patient received PEG tube yesterday and she was started on tube feeds. Will continue to advance tube feeds as tolerated and we will plan to discharge the patient within 24 to 48 hours. Disclaimer: Despite multiple revisions, due to the dictation software being used, the document bellow may not be free of grammatical errors including phonetic/typographic errors. However, this does not deter from our commitment to providing health care in the patient's best interest in mind. Dr. Sheldon Whittaker, PGY-3 Attending Provider Attestation/Addendum I, Chantale Bee, , attest that I was physically present for the mistry portions of the service and evaluated the patient with the resident and I reviewed and discussed the case with the resident and agree with the resident's findings and plans of care as documented above Patient seen and evaluated this AM. fabrizio is at bedside. Patient was agitated overnight since she did not receive her home meds in time. Patient also noted to have more scabbing in her mouth and dried blood from her cancer. She otherwise has no acute complaints. PEG tube was placed overnight and tube feeds to be started today. Will continue to slowly increase rate to goal. Will order C to provide tube feedings. Anticipate DC within next 48-72hs if patient tolerates tube feeds
--- NOTE | 2025-01-01 18:45 | PD.IMPROG ---
Documentation for date of: 01/01/25 Subjective Subjective Interval history: Status postplacement of a PEG tube for enteral hyperalimentation in the setting of failure to thrive Exam Vital Signs Temp Pulse Resp BP Pulse Ox O2 Del Method O2 Flow Rate 98.3 F 83 19 130/63 94 L Nasal Cannula 5 01/01/25 16:00 01/01/25 16:00 01/01/25 16:00 01/01/25 16:00 01/01/25 16:00 01/01/25 16:00 01/01/25 16:00 Objective Labs 01/01/25 04:45 01/01/25 04:45 Labs: Laboratory Results - last 24 hr 12/30/24 01/01/25 16:41 04:45 WBC 9.6 RBC 3.06 L Hgb 7.9 L Hct 25.1 L MCV 82 MCH 25.8 MCHC 31.5 RDW Std Deviation 55.2 H Plt Count 417 Neut % (Auto) 83 H Lymph % (Auto) 5 L [place] % (Auto) 7 Eos % (Auto) 2 Baso % (Auto) 1 Neut # (Auto) 8.0 H Lymph # (Auto) 0.5 L [place] # (Auto) 0.6 Eos # (Auto) 0.2 Baso # (Auto) 0.1 Immature Gran # (Auto) 0.25 H Absolute Nucleated RBC 0.00 Immature Gran % 3 H Nucleated RBC % 0 Sodium 144 Potassium 3.6 Chloride 105 Carbon Dioxide 25.2 Anion Gap 14 BUN 10 Creatinine 0.7 Estim Creat Clear Calc 52.0 L eGFR > 60 BUN/Creatinine Ratio 14 Glucose 74 Calculated Osmolality 284 Calcium 8.4 Crossmatch See Detail Impressions Impression: # Failure to thrive # Dysphagia # Status postplacement of a PEG tube Enteral feeding to continue Assessment & Plan A&P Narrative # Anemia blood loss # Failure to thrive # Squamous cell carcinoma of the tongue undergoing chemotherapy and radiation therapy Plan spoke with the daughter Alis Chowdhury telephone number [phone] Case discussed and permission obtained for upper endoscopy with possible placement of a gastrostomy feeding tube endoscopically under intravenous moderate sedation Procedure scheduled for tomorrow Thank you very much for the opportunity to participate in the care of this patient Time Spent With Patient Time: Total time spent is greater than 50% in coordination of care (as documented) at patient's floor/unit and/or counseling patient:
[2025-01-01] MEDS: DONEPEZIL HCL 5 MG TABLET 10 MG PO (20:24)
[2025-01-01] MEDS: SERTRALINE HCL 25 MG TABLET 50 MG PO (20:24)
[2025-01-01] MEDS: MELATONIN 3 MG TABLET 6 MG PO (20:25)
[2025-01-01] MEDS: PREGABALIN 75 MG CAPSULE 300 MG GT (20:36)
[2025-01-02] VITALS (13 sets, daily range): BP systolic 103–125; BP diastolic 45–60; PULSE 70–88; RESP 16–20; TEMP 36.1–37.4; O2SAT 81–100
[2025-01-02] MEDS: LEVOTHYROXINE SODIUM 25 MCG TABLET 50 MCG PO (05:26)
[2025-01-02] MEDS: PRAMIPEXOLE 0.25 MG TABLET 1.5 MG GT ×3 (05:27→21:13)
[2025-01-02 05:47] LABS: Basophils # (Auto) 0.1 Thou/mm3 (0.0-0.2); Basophils % (Auto) 1 % (0-2.5); Eosinophils # (Auto) 0.3 Thou/mm3 (0.0-0.5); Eosinophils % (Auto) 3 % (0-10); Hematocrit 26.7 % (36.0-46.0); Immature Granulocytes % (Auto) 3 % (0-0); Immature Granulocytes Auto 0.28 Thou/mm3 (0.00-0.00); Lymphocytes # (Auto) 0.6 Thou/mm3 (1.0-4.8); Lymphocytes % (Auto) 5 % (10-50); Mean Corpuscular HGB Conc 31.5 g/dl (31.0-37.0); Mean Corpuscular Hemoglobin 25.2 pg (25.0-35.0); Mean Corpuscular Volume 80 fL (80-100); Monocytes # (Auto) 0.9 Thou/mm3 (0.0-0.8); Monocytes % (Auto) 8 % (0-12); Neutrophils # (Auto) 8.7 Thou/mm3 (1.8-7.7); Neutrophils % (Auto) 81 % (37-80); Nucleated Red Blood Cell % 0 /100 WBC (0); Platelet Count 436 Thou/mm3 (140-440); RDW Standard Deviation 54.1 fL (36.4-46.3); Red Blood Count 3.33 Miln/mm3 (4.00-5.20); White Blood Count 10.8 Thou/mm3 (3.6-11.0)
[2025-01-02 05:49] LABS: Hemoglobin 8.4 g/dL (12.0-16.0)
[2025-01-02 06:04] LABS: Anion Gap 8 (7-16); BUN/Creatinine Ratio 10 Ratio (12-20); Blood Urea Nitrogen 7 mg/dL (9-23); Calcium 8.6 mg/dL (8.3-10.6); Carbon Dioxide 25.6 mMol/L (20.0-31.0); Chloride 105 mMol/L (98-107); Creatinine (Component) 0.7 mg/dL (0.6-1.3); Glucose 103 mg/dL (74-106); Osmolality,Calculated 275 (275-295); Potassium 3.2 mMol/L (3.4-5.1); Sodium 139 mMol/L (136-145); eGFR > 60 See Note
[2025-01-02] MEDS: ALBUTEROL/IPRATROPIUM (Duoneb) RT SOL 3 ML NEBU INH ×3 (07:08→22:38)
[2025-01-02] MEDS: PREGABALIN 75 MG CAPSULE 300 MG GT ×2 (08:40→21:13)
[2025-01-02] MEDS: SENNA TABLET 1 TAB GT (08:40)
[2025-01-02] MEDS: LORazepam 0.5 MG TABLET PO ×2 (08:41→21:14)
[2025-01-02] MEDS: cefTRIAXone/D5w 1gm IV premix 50 ML IV (08:42)
[2025-01-02] MEDS: ENOXAPARIN SOD INJ 40 MG/0.4 ML SYRINGE SC (08:42)
[2025-01-02] MEDS: PANTOPRAZOLE INJ 40 MG VIAL IV (08:42)
[2025-01-02] MEDS: POTASSIUM CHLORIDE 10% 20 MEQ/15 ML UDC 40 MEQ GT (10:05)
[2025-01-02] MEDS: AZITHROMYCIN INJ 500 MG in SODIUM CHLORIDE 0.9% 250 ML 250 ML 250 MG IV (10:17)
--- NOTE | 2025-01-02 10:17 | PC.SS ---
FLIGHT STEWARD met with pt's daughter and medical decision maker and explained the HH process, family is requesting SEVA ELEAZAR, FLIGHT STEWARD to follow up with transfer nurse regarding HH option.
--- NOTE | 2025-01-02 10:36 | PC.SS ---
Patient is physically incapable of utilizing regular toilet facilities because her diagnosis confines the patient to a single room. Patient is confined to a single level, and there is no toilet on that level; patient cannot access the toilet facilities in a timely manner due to lack of ambulation.
--- NOTE | 2025-01-02 11:22 | PC.SS ---
SHIPPING TRACK SUPERVISOR completed Bed Side [facility] via [facility]
--- NOTE | 2025-01-02 15:11 | ESPR_ITS ---
<Statement entered by Phyllis Muñoz MD - 01/03/25 07:48> Patient was seen and examined by me personally. I have directly supervised and reviewed documentation by the team resident and agree with its findings with any exceptions or additional findings as below. Plan of care was discussed with the attending, Dr. Bee. Patient seen this morning still having tube feedings advanced to the goal rate. Will plan for discharge home with home health [facility] in the next 24-48 hours. Phyllis Muñoz, PGY-2 Documentation for date of: 01/02/25 Subjective Subjective Interval history: Patient was seen and examined by the bedside. No acute overnight events. Patient is sleeping in bed, saturates well on room air. Continues to receives tube feeds, will titrate up to a goal rate. Daughter prefers for the patient to be discharged home with home health services. Exam Vital Signs Temp Pulse Resp BP Pulse Ox O2 Del Method O2 Flow Rate 99.4 F 82 18 116/56 L 99 Nasal Cannula 4 01/02/25 12:00 01/02/25 14:32 01/02/25 14:32 01/02/25 12:00 01/02/25 14:32 01/02/25 12:00 01/02/25 14:32 Narrative Exam Physical Exam General: Resting in bed. Chronically ill-appearing. HEENT: Normocephalic, atraumatic, mucous membranes dry. Brown colored mucus on the dorsum of the tongue. Heart: Regular rate and rhythm, no murmurs. Lungs: CTABL. Abdomen: Soft, nondistended, nontender, positive bowel sounds. PEG tube site unremarkable.?No guarding or rebound tenderness. Neurologic:No gross neurological deficit, and patient able to move all 4 extremities. Extremities: No edema. Skin: Small ecchymoses on the arms. Objective Labs 01/03/25 04:56 01/03/25 04:56 Labs: Laboratory Results - last 24 hr 01/02/25 04:54 WBC 10.8 RBC 3.33 L Hgb 8.4 L Hct 26.7 L MCV 80 MCH 25.2 MCHC 31.5 RDW Std Deviation 54.1 H Plt Count 436 Neut % (Auto) 81 H Lymph % (Auto) 5 L [place] % (Auto) 8 Eos % (Auto) 3 Baso % (Auto) 1 Neut # (Auto) 8.7 H Lymph # (Auto) 0.6 L [place] # (Auto) 0.9 H Eos # (Auto) 0.3 Baso # (Auto) 0.1 Immature Gran # (Auto) 0.28 H Absolute Nucleated RBC 0.00 Immature Gran % 3 H Nucleated RBC % 0 Sodium 139 Potassium 3.2 L Chloride 105 Carbon Dioxide 25.6 Anion Gap 8 BUN 7 L Creatinine 0.7 Estim Creat Clear Calc 52.0 L eGFR > 60 BUN/Creatinine Ratio 10 L Glucose 103 Calculated Osmolality 275 Calcium 8.6 Quality Measures Quality Measures VTE prophylaxis Advance care planning discussed with:: child Assessment & Plan Assessment Current Active Medications: Generic Name Dose Route Start Last Admin Trade Name Freq PRN Reason Stop Dose Admin Acetaminophen 650 mg 12/30/24 17:43 Acetaminophen 325 Mg Tablet PO 01/29/25 17:42 Q6H PRN Fever >100.4 or Pain 1-3 Albuterol/Ipratropium 3 ml 12/30/24 23:00 01/02/25 14:31 Albuterol/Ipratropium (Duoneb) Rt Usha 3 Ml Nebu INH 01/29/25 22:59 3 ml Q8HRRT JOSE Administration Donepezil HCl 10 mg 12/30/24 21:00 01/01/25 20:24 Donepezil Hcl 5 Mg Tablet PO 01/29/25 20:59 10 mg HS JOSE Administration Enoxaparin Sodium 40 mg 12/31/24 09:00 01/02/25 08:42 Enoxaparin Sod Inj 40 Mg/0.4 Ml Syringe SC 01/14/25 08:59 40 mg QDAY JOSE Administration Ceftriaxone Sodium/Dextrose 50 mls @ 100 mls/hr 12/31/24 09:00 01/02/25 08:42 Rocephin/D5w 1gm Iv Premix IV 01/07/25 08:59 100 mls/hr QDAY JOSE Administration Azithromycin 500 mg/ Sodium 250 mls @ 250 mls/hr 12/31/24 09:00 01/02/25 10:17 Chloride IV 01/03/25 17:47 250 mls/hr QDAY JOSE Administration Levothyroxine Sodium 50 mcg 12/31/24 06:00 01/02/25 05:26 Levothyroxine Sodium 25 Mcg Tablet PO 01/30/25 05:59 50 mcg ACBR JOSE Administration Lorazepam 0.5 mg 12/31/24 17:45 01/02/25 08:41 Lorazepam 0.5 Mg Tablet PO 01/05/25 17:44 0.5 mg Q12HR JOSE Administration Magnesium Hydroxide 30 ml 12/30/24 17:43 Milk Of Magnesia Susp 30 Ml Udc PO 01/29/25 17:42 QDAY PRN CONSTIPATION Protocol Melatonin 6 mg 12/30/24 21:00 01/01/25 20:25 Melatonin 3 Mg Tablet PO 01/29/25 20:59 6 mg HS JOSE Administration Ondansetron HCl 4 mg 12/30/24 17:43 Ondansetron Inj 2 Mg/Ml Inj 2 Ml IV 01/29/25 17:42 Q6H PRN NAUSEA OR VOMITING Protocol Pantoprazole Sodium 40 mg 12/31/24 09:00 01/02/25 08:42 Pantoprazole Inj 40 Mg Vial IV 01/30/25 08:59 40 mg QDAY JOSE Administration Pramipexole Dihydrochloride 1.5 mg 01/01/25 14:00 01/02/25 13:51 Pramipexole 0.25 Mg Tablet GT 01/31/25 13:59 1.5 mg TID JOSE Administration Pregabalin 300 mg 01/01/25 21:00 01/02/25 08:40 Pregabalin 75 Mg Capsule GT 01/30/25 20:59 300 mg Q12HR JOSE Administration Sennosides 1 tab 01/01/25 12:18 01/02/25 08:40 Senna Tablet GT 01/30/25 08:59 1 tab QDAY JOSE Administration Protocol Sertraline HCl 50 mg 12/30/24 21:00 01/01/25 20:24 Sertraline Hcl 25 Mg Tablet PO 01/29/25 20:59 50 mg HS JOSE Administration Plan The patient is a 89 female with a previous medical history of COPD on 3.5 L of oxygen at home, hypertension, 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 Patient was admitted due to community-acquired pneumonia, failure to thrive and dysphagia due to squamous cell carcinoma of the tongue. 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 Per daughter had dysphagia has gradually worsened recently. She is interested in PEG tube placement to improve nutrition. Plan: ?Duration precautions ? Oral care ? Speech therapy eval pending ? GI consultated, appreciate recommendations ? PEG tube site wound care ? Dietitian consulted, appreciate recommendations - aspiration precautions -PEG-tube feedings #Anemia of chronic disease Anemia of chronic disease. Iron panel is consistent with anemia of chronic disease. Reticulocyte count is elevated Per daughter, she denies bloody bowel movements. 12/30/24: 2 units of pRBC transfusion 12/31/24: Hgb 8.1. 01/02/25: Hgb 8.4. Plan: - monitor CBC - GI consulted, appreciate recs #Acute on chronic respiratory failure #Community-acquired pneumonia #History of COPD Blood culture preliminary negative, sputum culture grew gram-positive cocci, MRSA screen negative. Plan: ? Oxygen delivery as needed, goal SaO2 88 to 92% ? DuoNeb as needed ? Ceftriaxone 12/30/2024?current ? Azithromycin 12/31/2019?current #Hypertension ?Home medication on hold due to normal blood pressure #Hypothyroidism ?Levothyroxine 50 mcg daily #Restless leg syndrome ?Patient was on Pramipexole ER 4.5 mg daily, which is not crushable. - Pramipexole 1.5 mg TID through G-tube #Depression Plan: ? Sertraline 50 mg daily #Chronic pain Patient reported that patient has any negative reaction to opioids, can become agitated. Plan: ? Tylenol for pain control as needed ? Try to evade using opiate medications - Home gabapentin #Blindness secondary to macular degeneration #Hearing loss Chronic conditions, stable Health maintenance: FEN: tube feeds DVT prophylaxis: lovenox 40 sc GI prophylaxis: none Dispo: med tele CODE STATUS: DNR, daughter is okay with artificial feedings Plan of care discussed with attending Dr. Bee, PGY-[address] Muñoz. Areli Cm MD, PGY 1. Attending Provider Attestation/Addendum Chantale Chiang, DO, attest that I was physically present for the mistry portions of the service and evaluated the patient with the resident and I reviewed and discussed the case with the resident and agree with the resident's findings and plans of care as documented above Patient seen and evaluated this AM. Patient is resting comfortably and tolerating tube feeds. No acute events overnight. Pending C to be arranged to provide tube feeds and patient can be discharged once that is delivered.
--- NOTE | 2025-01-02 15:12 | PCS.ST ---
TAFE REGISTRAR attempted swallow evaluation. Pt unable to follow directions/participate in evaluation. TAFE REGISTRAR will reattempt tomorrow. TAFE REGISTRAR suspects pt will need post acute TAFE REGISTRAR services to help with dysphagia s/p radiation d/t squamous cell carcinoma.
--- NOTE | 2025-01-02 20:20 | PD.IMPROG ---
Documentation for date of: 01/02/25 Subjective Subjective Interval history: Receiving tube feeding Tolerated very well Will get to the desired rate Exam Vital Signs Temp Pulse Resp BP Pulse Ox O2 Del Method O2 Flow Rate 98.3 F 76 16 103/51 L 95 Nasal Cannula 5 01/02/25 16:00 01/02/25 19:55 01/02/25 16:00 01/02/25 16:00 01/02/25 16:00 01/02/25 16:00 01/02/25 16:00 Objective Labs 01/02/25 04:54 01/02/25 04:54 Labs: Laboratory Results - last 24 hr 12/30/24 01/02/25 16:41 04:54 WBC 10.8 RBC 3.33 L Hgb 8.4 L Hct 26.7 L MCV 80 MCH 25.2 MCHC 31.5 RDW Std Deviation 54.1 H Plt Count 436 Neut % (Auto) 81 H Lymph % (Auto) 5 L [place] % (Auto) 8 Eos % (Auto) 3 Baso % (Auto) 1 Neut # (Auto) 8.7 H Lymph # (Auto) 0.6 L [place] # (Auto) 0.9 H Eos # (Auto) 0.3 Baso # (Auto) 0.1 Immature Gran # (Auto) 0.28 H Absolute Nucleated RBC 0.00 Immature Gran % 3 H Nucleated RBC % 0 Sodium 139 Potassium 3.2 L Chloride 105 Carbon Dioxide 25.6 Anion Gap 8 BUN 7 L Creatinine 0.7 Estim Creat Clear Calc 52.0 L eGFR > 60 BUN/Creatinine Ratio 10 L Glucose 103 Calculated Osmolality 275 Calcium 8.6 Crossmatch See Detail Impressions Impression: # Failure to thrive PEG tube placement for enteral feeding doing well Assessment & Plan A&P Narrative # Anemia blood loss # Failure to thrive # Squamous cell carcinoma of the tongue undergoing chemotherapy and radiation therapy Plan spoke with the daughter Alis Chowdhury telephone number [phone] Case discussed and permission obtained for upper endoscopy with possible placement of a gastrostomy feeding tube endoscopically under intravenous moderate sedation Procedure scheduled for tomorrow Thank you very much for the opportunity to participate in the care of this patient Time Spent With Patient Time: Total time spent is greater than 50% in coordination of care (as documented) at patient's floor/unit and/or counseling patient:
[2025-01-02] MEDS: SERTRALINE HCL 25 MG TABLET 50 MG PO (21:14)
[2025-01-02] MEDS: DONEPEZIL HCL 5 MG TABLET 10 MG PO (21:14)
[2025-01-02] MEDS: MELATONIN 3 MG TABLET 6 MG PO (21:14)
[2025-01-03] VITALS (12 sets, daily range): BP systolic 102–131; BP diastolic 52–61; PULSE 67–90; RESP 17–22; TEMP 36.3–37; O2SAT 92–100
[2025-01-03] MEDS: LEVOTHYROXINE SODIUM 25 MCG TABLET 50 MCG PO (05:23)
[2025-01-03] MEDS: PRAMIPEXOLE 0.25 MG TABLET 1.5 MG GT ×3 (05:24→21:12)
[2025-01-03 06:12] LABS: Basophils % (Auto) 1 % (0-2.5); Eosinophils # (Auto) 0.5 Thou/mm3 (0.0-0.5); Eosinophils % (Auto) 6 % (0-10); Hematocrit 24.6 % (36.0-46.0); Immature Granulocytes % (Auto) 5 % (0-0); Immature Granulocytes Auto 0.43 Thou/mm3 (0.00-0.00); Lymphocytes # (Auto) 0.5 Thou/mm3 (1.0-4.8); Lymphocytes % (Auto) 6 % (10-50); Mean Corpuscular HGB Conc 30.9 g/dl (31.0-37.0); Mean Corpuscular Hemoglobin 25.2 pg (25.0-35.0); Mean Corpuscular Volume 82 fL (80-100); Monocytes # (Auto) 0.8 Thou/mm3 (0.0-0.8); Monocytes % (Auto) 11 % (0-12); Neutrophils # (Auto) 5.7 Thou/mm3 (1.8-7.7); Neutrophils % (Auto) 72 % (37-80); Nucleated Red Blood Cell % 0 /100 WBC (0); Platelet Count 459 Thou/mm3 (140-440); RDW Standard Deviation 55.6 fL (36.4-46.3); Red Blood Count 3.01 Miln/mm3 (4.00-5.20); White Blood Count 7.9 Thou/mm3 (3.6-11.0)
[2025-01-03 06:13] LABS: Hemoglobin 7.6 g/dL (12.0-16.0)
--- NOTE | 2025-01-03 06:40 | PC.NURSE ---
Hgb dropped to 7.6 and Hct dropped to 24.[address] Armstrong was made aware. No new orders received at this time.
[2025-01-03] MEDS: ALBUTEROL/IPRATROPIUM (Duoneb) RT SOL 3 ML NEBU INH ×3 (06:53→22:03)
[2025-01-03 06:59] LABS: Alanine Aminotransferase < 7 U/L (10-49); Albumin, Serum 2.8 gm/dL (3.4-4.8); Albumin/Globulin Ratio 1.2 (1.2-2.2); Alkaline Phosphatase 71 U/L (46-116); Anion Gap 7 (7-16); Aspartate Amino Transferase < 8 U/L (0-34); BUN/Creatinine Ratio 13 Ratio (12-20); Bilirubin,Total < 0.2 mg/dL (0.3-1.2); Blood Urea Nitrogen 9 mg/dL (9-23); Calcium 8.1 mg/dL (8.3-10.6); Calcium (Corrected) 9.1 mg/dL (8.5-10.1); Carbon Dioxide 29.6 mMol/L (20.0-31.0); Chloride 105 mMol/L (98-107); Creatinine (Component) 0.7 mg/dL (0.6-1.3); Globulin 2.4 gm/dL (2.3-3.5); Glucose 108 mg/dL (74-106); Osmolality,Calculated 282 (275-295); Sodium 142 mMol/L (136-145); Total Protein 5.2 gm/dL (5.7-8.2); eGFR > 60 See Note
[2025-01-03] MEDS: PREGABALIN 75 MG CAPSULE 300 MG GT ×2 (08:16→20:42)
[2025-01-03] MEDS: ENOXAPARIN SOD INJ 40 MG/0.4 ML SYRINGE SC (08:16)
[2025-01-03] MEDS: cefTRIAXone/D5w 1gm IV premix 50 ML IV (08:17)
[2025-01-03] MEDS: SENNA TABLET 1 TAB GT (08:17)
[2025-01-03] MEDS: LORazepam 0.5 MG TABLET PO ×2 (08:17→20:42)
[2025-01-03] MEDS: LANSOPRAZOLE 30 MG TAB.RAP.DR GT (08:17)
[2025-01-03] MEDS: AZITHROMYCIN 250 MG TABLET 500 MG PO (08:28)
--- NOTE | 2025-01-03 13:10 | PC.CM ---
I reviewed notes and patient would like [facility] on discharge.
--- NOTE | 2025-01-03 15:17 | ESPR_ITS ---
Documentation for date of: 01/03/25 Subjective Subjective Interval history: No acute events overnight.?No events of emesis. Patient seen and examined at bedside this AM.?Patient is at goal rate of tube feeds at 50 cc/hr. She appears asleep, but arousable to voice, very hard of hearing. She has thick secretions and is on OxyMask 3L, bedside suctioning performed. Awaiting home health set up with tube feedings. Labs and vitals were reviewed, stable.?No further complaints at this time. Will plan for discharge likely tomorrow. Review of systems otherwise negative except what is mentioned above. Exam Vital Signs Temp Pulse Resp BP Pulse Ox O2 Del Method O2 Flow Rate 98.4 F 67 18 112/56 L 98 Oxy Mask 3 01/03/25 12:00 01/03/25 13:24 01/03/25 12:00 01/03/25 12:01/03/25 12:01/03/25 12:00 01/03/25 06:55 Narrative Exam Physical Exam General: Resting in bed with mouth open. Chronically ill-appearing. HEENT: Normocephalic, atraumatic, mucous membranes dry. Brown colored mucus on the dorsum of the tongue. Thick secretions. Heart: Regular rate and rhythm, no murmurs. Lungs: CTABL. Abdomen: Soft, nondistended, nontender, positive bowel sounds. PEG tube site unremarkable.?No guarding or rebound tenderness. Neurologic: No gross neurological deficit, and patient able to move all 4 extremities. Extremities: No edema. Skin: Small ecchymoses on the arms. Objective Labs 01/04/25 05:21 01/04/25 05:21 Labs: Laboratory Results - last 24 hr 12/30/24 01/03/25 16:41 04:56 WBC 7.9 RBC 3.01 L Hgb 7.6 L Hct 24.6 L MCV 82 MCH 25.2 MCHC 30.9 L RDW Std Deviation 55.6 H Plt Count 459 H Neut % (Auto) 72 Lymph % (Auto) 6 L [place] % (Auto) 11 Eos % (Auto) 6 Baso % (Auto) 1 Neut # (Auto) 5.7 Lymph # (Auto) 0.5 L [place] # (Auto) 0.8 Eos # (Auto) 0.5 Baso # (Auto) 0.0 Immature Gran # (Auto) 0.43 H Absolute Nucleated RBC 0.00 Immature Gran % 5 H Nucleated RBC % 0 Sodium 142 Potassium 4.0 D Chloride 105 Carbon Dioxide 29.6 Anion Gap 7 BUN 9 Creatinine 0.7 Estim Creat Clear Calc 52.0 L eGFR > 60 BUN/Creatinine Ratio 13 Glucose 108 H Calculated Osmolality 282 Calcium 8.1 L Corrected Calcium 9.1 Total Bilirubin < 0.2 L AST < 8 ALT < 7 L Alkaline Phosphatase 71 Total Protein 5.2 L Albumin 2.8 L Globulin 2.4 Albumin/Globulin Ratio 1.2 Crossmatch See Detail Quality Measures Quality Measures VTE prophylaxis Advance care planning discussed with:: patient Assessment & Plan Assessment Current Active Medications: Generic Name Dose Route Start Last Admin Trade Name Freq PRN Reason Stop Dose Admin Acetaminophen 650 mg 12/30/24 17:43 Acetaminophen 325 Mg Tablet PO 01/29/25 17:42 Q6H PRN Fever >100.4 or Pain 1-3 Albuterol/Ipratropium 3 ml 12/30/24 23:00 01/03/25 14:28 Albuterol/Ipratropium (Duoneb) Rt Usha 3 Ml Nebu INH 01/29/25 22:59 3 ml Q8HRRT JOSE Administration Azithromycin 500 mg 01/03/25 09:00 01/03/25 08:28 Azithromycin 250 Mg Tablet PO 01/03/25 17:47 500 mg QDAY JOSE Administration Donepezil HCl 10 mg 12/30/24 21:00 01/02/25 21:14 Donepezil Hcl 5 Mg Tablet PO 01/29/25 20:59 10 mg HS JOSE Administration Enoxaparin Sodium 40 mg 12/31/24 09:00 01/03/25 08:16 Enoxaparin Sod Inj 40 Mg/0.4 Ml Syringe SC 01/14/25 08:59 40 mg QDAY JOSE Administration Ceftriaxone Sodium/Dextrose 50 mls @ 100 mls/hr 12/31/24 09:00 01/03/25 08:17 Rocephin/D5w 1gm Iv Premix IV 01/07/25 08:59 100 mls/hr QDAY JOSE Administration Lansoprazole 30 mg 01/03/25 09:00 01/03/25 08:17 Lansoprazole 30 Mg Tab.Rap.Dr HACKETT 01/30/25 08:59 30 mg QDAY JOSE Administration Levothyroxine Sodium 50 mcg 12/31/24 06:00 01/03/25 05:23 Levothyroxine Sodium 25 Mcg Tablet PO 01/30/25 05:59 50 mcg ACBR JOSE Administration Lorazepam 0.5 mg 12/31/24 17:45 01/03/25 08:17 Lorazepam 0.5 Mg Tablet PO 01/05/25 17:44 0.5 mg Q12HR JOSE Administration Magnesium Hydroxide 30 ml 12/30/24 17:43 Milk Of Magnesia Susp 30 Ml Udc PO 01/29/25 17:42 QDAY PRN CONSTIPATION Protocol Melatonin 6 mg 12/30/24 21:00 01/02/25 21:14 Melatonin 3 Mg Tablet PO 01/29/25 20:59 6 mg HS JOSE Administration Ondansetron HCl 4 mg 12/30/24 17:43 Ondansetron Inj 2 Mg/Ml Inj 2 Ml IV 01/29/25 17:42 Q6H PRN NAUSEA OR VOMITING Protocol Pramipexole Dihydrochloride 1.5 mg 01/01/25 14:00 01/03/25 14:51 Pramipexole 0.25 Mg Tablet GT 01/31/25 13:59 1.5 mg TID JOSE Administration Pregabalin 300 mg 01/01/25 21:00 01/03/25 08:16 Pregabalin 75 Mg Capsule GT 01/30/25 20:59 300 mg Q12HR JOSE Administration Sennosides 1 tab 01/01/25 12:18 01/03/25 08:17 Senna Tablet GT 01/30/25 08:59 1 tab QDAY JOSE Administration Protocol Sertraline HCl 50 mg 12/30/24 21:00 01/02/25 21:14 Sertraline Hcl 25 Mg Tablet PO 01/29/25 20:59 50 mg HS JOSE Administration Plan 89-year-old female with past medical history of COPD on 3.5L home O2, hypertension, 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 Patient was admitted due to community-acquired pneumonia, failure to thrive, and dysphagia due to squamous cell carcinoma of the tongue. 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 Per daughter had dysphagia which has gradually worsened recently. She is interested in PEG tube placement to improve nutrition. Speech therapy evaluated patient who stated that patient was unable to interact with oral feeds, recommended continue tube feedings. Plan: ? Oral care ? GI consulted, appreciate recommendations ? Dietitian consulted, appreciate recommendations ? PEG tube site wound care ? Aspiration precautions ? Continue PEG-tube feedings at goal rate ? Plan for discharge once home health PEG feeding supplies are ready at the patient's home #Anemia of chronic disease Anemia of chronic disease. Iron panel is consistent with anemia of chronic disease. Reticulocyte count is elevated Per daughter, she denies bloody bowel movements. 12/30/24: 2 units of PRBC transfusion 12/31/24: Hgb 8.1. 01/02/25: Hgb 8.4. Plan: - Monitor CBC #Acute on chronic respiratory failure #Community-acquired pneumonia #History of COPD Blood culture preliminary negative, sputum culture grew gram-positive cocci, MRSA screen negative. 12/31/2024 Sputum culture grew Staphylococcus schleiferi sensitive to ceftriaxone Plan: ? Oxygen delivery as needed, goal SaO2 88 to 92% ? DuoNeb as needed ? Ceftriaxone 12/30/2024?current ? Azithromycin 12/30/2024?current #Hypertension Home medications include losartan 25 mg qday. Plan: ? Home medication on hold due to normal blood pressure #Hypothyroidism Plan: ? Continue home levothyroxine 50 mcg daily #Restless leg syndrome Patient was on Pramipexole ER 4.5 mg daily, which is not crushable. Plan: ? Continue pramipexole 1.5 mg TID through G-tube #Depression Plan: ? Continue home sertraline 50 mg daily #Chronic pain Patient reported that patient has any negative reaction to opioids, can become agitated. Plan: ? Tylenol for pain control as needed ? Avoid opiate medications ? Continue home pregabalin 300 mg q12h #Blindness secondary to macular degeneration #Hearing loss Chronic conditions, stable Health maintenance: FEN: Tube feeds, Jevity 1.5 at 50 ml/hr DVT prophylaxis: Lovenox 40 mg subQ GI prophylaxis: None Dispo: Med Tele CODE STATUS: DNR, daughter is okay with artificial feedings Patient plan of care was discussed with the attending physician, Dr. Bee. Phyllis Muñoz, PGY-2 Attending Provider Attestation/Addendum Chantale Chiang, , attest that I was physically present for the mistry portions of the service and evaluated the patient with the resident and I reviewed and discussed the case with the resident and agree with the resident's findings and plans of care as documented above Patient seen and evaluated this AM. Patient is resting comfortably and tolerating tube feeds. Pending supplies to be delivered and home health to be set up. Speech therapy is pending otherwise. Patient is hard of hearing and unable to expectorate her phlegm. Noted to have a lot of scabbing over her mouth due to cancer.
--- NOTE | 2025-01-03 18:34 | ESPR_ITS ---
Documentation for date of: 01/03/25 Subjective Subjective Interval history: Patient evaluated PEG tube is working good No drainage Exam Vital Signs Temp Pulse Resp BP Pulse Ox O2 Del Method O2 Flow Rate 98.6 F 85 22 H 102/58 L 97 Oxy Mask 3 01/03/25 16:00 01/03/25 16:32 01/03/25 16:00 01/03/25 16:00 01/03/25 16:00 01/03/25 16:00 01/03/25 14:30 Objective Labs 01/03/25 04:56 01/03/25 04:56 Labs: Laboratory Results - last 24 hr 01/03/25 04:56 WBC 7.9 RBC 3.01 L Hgb 7.6 L Hct 24.6 L MCV 82 MCH 25.2 MCHC 30.9 L RDW Std Deviation 55.6 H Plt Count 459 H Neut % (Auto) 72 Lymph % (Auto) 6 L [place] % (Auto) 11 Eos % (Auto) 6 Baso % (Auto) 1 Neut # (Auto) 5.7 Lymph # (Auto) 0.5 L [place] # (Auto) 0.8 Eos # (Auto) 0.5 Baso # (Auto) 0.0 Immature Gran # (Auto) 0.43 H Absolute Nucleated RBC 0.00 Immature Gran % 5 H Nucleated RBC % 0 Sodium 142 Potassium 4.0 D Chloride 105 Carbon Dioxide 29.6 Anion Gap 7 BUN 9 Creatinine 0.7 Estim Creat Clear Calc 52.0 L eGFR > 60 BUN/Creatinine Ratio 13 Glucose 108 H Calculated Osmolality 282 Calcium 8.1 L Corrected Calcium 9.1 Total Bilirubin < 0.2 L AST < 8 ALT < 7 L Alkaline Phosphatase 71 Total Protein 5.2 L Albumin 2.8 L Globulin 2.4 Albumin/Globulin Ratio 1.2 Impressions Impression: Failure to thrive Status post PEG placement followed enteral hyperalimentation doing well Assessment & Plan A&P Narrative # Anemia blood loss # Failure to thrive # Squamous cell carcinoma of the tongue undergoing chemotherapy and radiation therapy Plan spoke with the daughter Alis Chowdhury telephone number [phone] Case discussed and permission obtained for upper endoscopy with possible placement of a gastrostomy feeding tube endoscopically under intravenous moderate sedation Procedure scheduled for tomorrow Thank you very much for the opportunity to participate in the care of this patient Time Spent With Patient Time: Total time spent is greater than 50% in coordination of care (as documented) at patient's floor/unit and/or counseling patient:
[2025-01-03] MEDS: DONEPEZIL HCL 5 MG TABLET 10 MG PO (20:42)
[2025-01-03] MEDS: MELATONIN 3 MG TABLET 6 MG PO (20:42)
[2025-01-03] MEDS: SERTRALINE HCL 25 MG TABLET 50 MG PO (20:42)
[2025-01-04] VITALS (10 sets, daily range): BP systolic 113–146; BP diastolic 60–82; PULSE 73–87; RESP 16–20; TEMP 36.1–37.1; O2SAT 91–99; BMI 21.2
[2025-01-04] MEDS: LEVOTHYROXINE SODIUM 25 MCG TABLET 50 MCG PO (05:22)
[2025-01-04] MEDS: PRAMIPEXOLE 0.25 MG TABLET 1.5 MG GT ×2 (05:22→15:22)
[2025-01-04 06:12] LABS: Basophils # (Auto) 0.1 Thou/mm3 (0.0-0.2); Basophils % (Auto) 1 % (0-2.5); Eosinophils # (Auto) 0.5 Thou/mm3 (0.0-0.5); Eosinophils % (Auto) 5 % (0-10); Hematocrit 24.7 % (36.0-46.0); Immature Granulocytes % (Auto) 6 % (0-0); Immature Granulocytes Auto 0.64 Thou/mm3 (0.00-0.00); Lymphocytes # (Auto) 0.6 Thou/mm3 (1.0-4.8); Lymphocytes % (Auto) 5 % (10-50); Mean Corpuscular HGB Conc 32.4 g/dl (31.0-37.0); Mean Corpuscular Hemoglobin 26.5 pg (25.0-35.0); Mean Corpuscular Volume 82 fL (80-100); Monocytes % (Auto) 9 % (0-12); Neutrophils # (Auto) 7.7 Thou/mm3 (1.8-7.7); Neutrophils % (Auto) 74 % (37-80); Nucleated Red Blood Cell % 0 /100 WBC (0); Platelet Count 506 Thou/mm3 (140-440); RDW Standard Deviation 55.8 fL (36.4-46.3); Red Blood Count 3.02 Miln/mm3 (4.00-5.20); White Blood Count 10.4 Thou/mm3 (3.6-11.0)
[2025-01-04 06:35] LABS: Alanine Aminotransferase 12 U/L (10-49); Albumin/Globulin Ratio 1.2 (1.2-2.2); Alkaline Phosphatase 74 U/L (46-116); Anion Gap 8 (7-16); Aspartate Amino Transferase 20 U/L (0-34); BUN/Creatinine Ratio 20 Ratio (12-20); Bilirubin,Total < 0.2 mg/dL (0.3-1.2); Blood Urea Nitrogen 12 mg/dL (9-23); Calcium 8.9 mg/dL (8.3-10.6); Calcium (Corrected) 9.7 mg/dL (8.5-10.1); Carbon Dioxide 30.7 mMol/L (20.0-31.0); Chloride 103 mMol/L (98-107); Creatinine (Component) 0.6 mg/dL (0.6-1.3); Estimated Creatinine Clearance 60.7 mL/min (>60); Globulin 2.5 gm/dL (2.3-3.5); Glucose 115 mg/dL (74-106); Osmolality,Calculated 283 (275-295); Potassium 4.2 mMol/L (3.4-5.1); Sodium 142 mMol/L (136-145); Total Protein 5.5 gm/dL (5.7-8.2); eGFR > 60 See Note
[2025-01-04] MEDS: ALBUTEROL/IPRATROPIUM (Duoneb) RT SOL 3 ML NEBU INH ×3 (07:20→22:35)
--- NOTE | 2025-01-04 10:00 | CHAP ---
Patient was visited by the Spiritual Care Volunteer who prayed for them. (Volunteer was in the hospital from 9:29-c10:00)
[2025-01-04] MEDS: PREGABALIN 75 MG CAPSULE 300 MG GT (10:13)
[2025-01-04] MEDS: LORazepam 0.5 MG TABLET PO (10:14)
[2025-01-04] MEDS: cefTRIAXone/D5w 1gm IV premix 50 ML IV (10:14)
[2025-01-04] MEDS: LANSOPRAZOLE 30 MG TAB.RAP.DR GT (10:14)
[2025-01-04] MEDS: SENNA TABLET 1 TAB GT (10:14)
[2025-01-04] MEDS: ENOXAPARIN SOD INJ 40 MG/0.4 ML SYRINGE SC (10:14)
--- NOTE | 2025-01-04 11:46 | PC.CC ---
Addendum entered by Colleen Solares RN 01/04/25 15:14: [facility] has accepted pt and will deliver tonight between 6-[address] Bee who agrees to dc patient tomorrow morning, [facility] is in agreement and will see patient in the am 01/05/25 Addendum entered by Colleen Solares RN 01/04/25 14:25: [facility] states they can deliver tube feedings tonight, waiting for new home health order for speech therapy Addendum entered by Colleen Solares RN 01/04/25 13:37: [facility] has accepted but waiting on auth Addendum entered by Colleen Solares RN 01/04/25 12:37: Pt is booked with [facility] pending [facility] accepting pt. Original Note: Referral sent to [facility] for HH, and [facility] for tube feedings.
--- NOTE | 2025-01-04 14:19 | PCS.ST ---
RISK AND COMPLIANCE ANALYTICS DIRECTOR recommends HH ST and OP swallow study (FEES). Family at bedside educated and agreeable on recommendations.
--- NOTE | 2025-01-04 14:23 | PC.CC ---
PA request for lansoprazole ODT faxed to insurance.
--- NOTE | 2025-01-04 15:21 | PC.DIETICIAN ---
Dietitian note: Recommend hold TF 1 hr before and after Levothyroxine to prevent TF interaction: New TF rate: Jevity 1.5 with goal of 55ml/hr x22hrs to provide 1210 ml total volume, 1815kcal,77g protein, same water flush Thank you
--- NOTE | 2025-01-04 15:49 | PC.SS ---
SS spoke to who explained she was informed by patient's formula for tube feedings will not be delivered until tonight around 7-8pm and pt is unable to come home until tuber feedings have arrived. is requesting a side table be ordered. SS has contacted [facility] who explained they do not have side tables. is aware. SS has sent DME order for commode to [facility] using [employer] [facility]. confirmed she has received commode. states transportation will have to be arranged for pt to return home.
--- NOTE | 2025-01-04 17:23 | PD.RESPRO ---
Documentation for date of: 01/04/25 Subjective Subjective Interval history: No acute events overnight.?Patient seen and examined at bedside this AM.?Patient appeared sleeping but arousable to voice when speaking very loudly into her ear. She has dry thick secretions. Speech therapy came to evaluate patient and assist with oral care. Recommended home health speech therapy continued services. Labs and vitals were reviewed.?Pending home health PEG tube feeding supplies, plan for discharge in 24 hours. Review of systems otherwise negative except what is mentioned above. Exam Vital Signs Temp Pulse Resp BP Pulse Ox O2 Del Method O2 Flow Rate 98.7 F 76 17 133/82 H 96 Oxy Mask 3 01/04/25 16:00 01/04/25 16:00 01/04/25 16:00 01/04/25 16:00 01/04/25 16:00 01/04/25 16:01/04/25 16:00 Narrative Exam Physical Exam General: Resting in bed with mouth open. Chronically ill-appearing. HEENT: Normocephalic, atraumatic, mucous membranes dry. Brown colored mucus on the dorsum of the tongue. Thick secretions. Heart: Regular rate and rhythm, no murmurs. Lungs: CTABL. Abdomen: Soft, nondistended, nontender, positive bowel sounds. PEG tube site unremarkable.?No guarding or rebound tenderness. Neurologic: No gross neurological deficit, and patient able to move all 4 extremities. Extremities: No edema. Skin: Small ecchymoses on the arms. Objective Labs 01/05/25 05:16 01/05/25 05:16 Labs: Laboratory Results - last 24 hr 01/04/25 05:21 WBC 10.4 RBC 3.02 L Hgb 8.0 L Hct 24.7 L MCV 82 MCH 26.5 MCHC 32.4 RDW Std Deviation 55.8 H Plt Count 506 H D Neut % (Auto) 74 Lymph % (Auto) 5 L [place] % (Auto) 9 Eos % (Auto) 5 Baso % (Auto) 1 Neut # (Auto) 7.7 Lymph # (Auto) 0.6 L [place] # (Auto) 1.0 H Eos # (Auto) 0.5 Baso # (Auto) 0.1 Immature Gran # (Auto) 0.64 H Absolute Nucleated RBC 0.00 Immature Gran % 6 H Nucleated RBC % 0 Sodium 142 Potassium 4.2 Chloride 103 Carbon Dioxide 30.7 Anion Gap 8 BUN 12 Creatinine 0.6 Estim Creat Clear Calc 60.7 L eGFR > 60 BUN/Creatinine Ratio 20 Glucose 115 H Calculated Osmolality 283 Calcium 8.9 Corrected Calcium 9.7 Total Bilirubin < 0.2 L AST 20 ALT 12 Alkaline Phosphatase 74 Total Protein 5.5 L Albumin 3.0 L Globulin 2.5 Albumin/Globulin Ratio 1.2 Quality Measures Quality Measures VTE prophylaxis Advance care planning discussed with:: patient and child Assessment & Plan Assessment Current Active Medications: Generic Name Dose Route Start Last Admin Trade Name Freq PRN Reason Stop Dose Admin Acetaminophen 650 mg 12/30/24 17:43 Acetaminophen 325 Mg Tablet PO 01/29/25 17:42 Q6H PRN Fever >100.4 or Pain 1-3 Albuterol/Ipratropium 3 ml 12/30/24 23:00 01/04/25 14:07 Albuterol/Ipratropium (Duoneb) Rt Usha 3 Ml Nebu INH 01/29/25 22:59 3 ml Q8HRRT JOSE Administration Donepezil HCl 10 mg 12/30/24 21:00 01/03/25 20:42 Donepezil Hcl 5 Mg Tablet PO 01/29/25 20:59 10 mg HS JOSE Administration Enoxaparin Sodium 40 mg 12/31/24 09:00 01/04/25 10:14 Enoxaparin Sod Inj 40 Mg/0.4 Ml Syringe SC 01/14/25 08:59 40 mg QDAY JOSE Administration Ceftriaxone Sodium/Dextrose 50 mls @ 100 mls/hr 12/31/24 09:00 01/04/25 10:14 Rocephin/D5w 1gm Iv Premix IV 01/07/25 08:59 100 mls/hr QDAY JOSE Administration Lansoprazole 30 mg 01/03/25 09:00 01/04/25 10:14 Lansoprazole 30 Mg Tab.Rap. GT 01/30/25 08:59 30 mg QDAY JOSE Administration Levothyroxine Sodium 50 mcg 12/31/24 06:00 01/04/25 05:22 Levothyroxine Sodium 25 Mcg Tablet PO 01/30/25 05:59 50 mcg ACBR JOSE Administration Lorazepam 0.5 mg 12/31/24 17:45 01/04/25 10:14 Lorazepam 0.5 Mg Tablet PO 01/05/25 17:44 0.5 mg Q12HR JOSE Administration Magnesium Hydroxide 30 ml 12/30/24 17:43 Milk Of Magnesia Susp 30 Ml Udc PO 01/29/25 17:42 QDAY PRN CONSTIPATION Protocol Melatonin 6 mg 12/30/24 21:00 01/03/25 20:42 Melatonin 3 Mg Tablet PO 01/29/25 20:59 6 mg HS JOSE Administration Ondansetron HCl 4 mg 12/30/24 17:43 Ondansetron Inj 2 Mg/Ml Inj 2 Ml IV 01/29/25 17:42 Q6H PRN NAUSEA OR VOMITING Protocol Pramipexole Dihydrochloride 1.5 mg 01/01/25 14:00 01/04/25 15:22 Pramipexole 0.25 Mg Tablet GT 01/31/25 13:59 1.5 mg TID JOSE Administration Pregabalin 300 mg 01/01/25 21:00 01/04/25 10:13 Pregabalin 75 Mg Capsule GT 01/30/25 20:59 300 mg Q12HR JOSE Administration Sennosides 1 tab 01/01/25 12:18 01/04/25 10:14 Senna Tablet GT 01/30/25 08:59 1 tab QDAY JOSE Administration Protocol Sertraline HCl 50 mg 12/30/24 21:00 01/03/25 20:42 Sertraline Hcl 25 Mg Tablet PO 01/29/25 20:59 50 mg HS JOSE Administration Plan 89-year-old female with past medical history of COPD on 3.5L home O2, hypertension, 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 Patient was admitted due to community-acquired pneumonia, failure to thrive, and dysphagia due to squamous cell carcinoma of the tongue. #Failure to thrive #Dysphagia #Squamous cell carcinoma of the tongue #General weakness #Frailty Patient has a history of squamous cell carcinoma of the tongue, status post radiotherapy on diagnosed in 2023. Per daughter had dysphagia which has gradually worsened recently. She is interested in PEG tube placement to improve nutrition. Speech therapy evaluated patient who stated that patient was unable to interact with oral feeds, recommended continue tube feedings. Plan: ? Oral care ? GI consulted, appreciate recommendations ? Dietitian consulted, appreciate recommendations ? PEG tube site wound care ? Aspiration precautions ? Continue PEG-tube feedings at goal rate ? Plan for discharge once home health PEG feeding supplies are ready at the patient's home #Anemia of chronic disease Anemia of chronic disease. Iron panel is consistent with anemia of chronic disease. Reticulocyte count is elevated Per daughter, she denies bloody bowel movements. 12/30/24: 2 units of PRBC transfusion 12/31/24: Hgb 8.1. 01/02/25: Hgb 8.4. Plan: - Monitor CBC #Acute on chronic respiratory failure #Community-acquired pneumonia #History of COPD Blood culture preliminary negative, sputum culture grew gram-positive cocci, MRSA screen negative. 12/31/2024 Sputum culture grew Staphylococcus schleiferi sensitive to ceftriaxone Plan: ? Oxygen delivery as needed, goal SaO2 88 to 92% ? DuoNeb as needed ? Ceftriaxone 12/30/2024?current ? Azithromycin 12/30/2024?current #Hypertension Home medications include losartan 25 mg qday. Plan: ? Home medication on hold due to normal blood pressure #Hypothyroidism Plan: ? Continue home levothyroxine 50 mcg daily #Restless leg syndrome Patient was on Pramipexole ER 4.5 mg daily, which is not crushable. Plan: ? Continue pramipexole 1.5 mg TID through G-tube #Depression Plan: ? Continue home sertraline 50 mg daily #Chronic pain Patient reported that patient has any negative reaction to opioids, can become agitated. Plan: ? Tylenol for pain control as needed ? Avoid opiate medications ? Continue home pregabalin 300 mg q12h #Blindness secondary to macular degeneration #Hearing loss Chronic conditions, stable Health maintenance: FEN: Tube feeds, Jevity 1.5 at 50 ml/hr DVT prophylaxis: Lovenox 40 mg subQ GI prophylaxis: None Dispo: Med Tele CODE STATUS: DNR, daughter is okay with artificial feedings Patient plan of care was discussed with the attending physician, Dr. Bee. Phyllis Muñoz, PGY-2 Attending Provider Attestation/Addendum Chantale Chiang, DO, attest that I was physically present for the mistry portions of the service and evaluated the patient with the resident and I reviewed and discussed the case with the resident and agree with the resident's findings and plans of care as documented above Patient seen and evaluated this AM. Daughter is at bedside and very concerned about the dryness and scabbing of her mother's mouth. There is noted to be a lot of dried blood at the back of patient's throat due to both her SCC, as well as trauma from suctioning. Patient has not worked with speech therapy. Asked for daughter to stay at bedside to encourage patient to work with speech as she is hard of hearing and can help with directing the patient. Arrangements for [facility] for tube feeds to be delivered to home this evening. Anticipate DC in AM once daughter has received all her supplies. Patient has otherwise been tolerating tube feeds well.
--- NOTE | 2025-01-04 21:37 | ESPR_ITS ---
Documentation for date of: 01/04/25 Subjective Subjective Interval history: Patient evaluated Exam Vital Signs Temp Pulse Resp BP Pulse Ox O2 Del Method O2 Flow Rate 98.7 F 76 17 133/82 H 96 Oxy Mask 3 01/04/25 16:00 01/04/25 16:00 01/04/25 16:00 01/04/25 16:00 01/04/25 16:00 01/04/25 16:00 01/04/25 16:00 Objective Labs 01/04/25 05:21 01/04/25 05:21 Labs: Laboratory Results - last 24 hr 01/04/25 05:21 WBC 10.4 RBC 3.02 L Hgb 8.0 L Hct 24.7 L MCV 82 MCH 26.5 MCHC 32.4 RDW Std Deviation 55.8 H Plt Count 506 H D Neut % (Auto) 74 Lymph % (Auto) 5 L [place] % (Auto) 9 Eos % (Auto) 5 Baso % (Auto) 1 Neut # (Auto) 7.7 Lymph # (Auto) 0.6 L [place] # (Auto) 1.0 H Eos # (Auto) 0.5 Baso # (Auto) 0.1 Immature Gran # (Auto) 0.64 H Absolute Nucleated RBC 0.00 Immature Gran % 6 H Nucleated RBC % 0 Sodium 142 Potassium 4.2 Chloride 103 Carbon Dioxide 30.7 Anion Gap 8 BUN 12 Creatinine 0.6 Estim Creat Clear Calc 60.7 L eGFR > 60 BUN/Creatinine Ratio 20 Glucose 115 H Calculated Osmolality 283 Calcium 8.9 Corrected Calcium 9.7 Total Bilirubin < 0.2 L AST 20 ALT 12 Alkaline Phosphatase 74 Total Protein 5.5 L Albumin 3.0 L Globulin 2.5 Albumin/Globulin Ratio 1.2 Impressions Impression: Failure to thrive dysphagia Status post PEG placement Assessment & Plan A&P Narrative # Anemia blood loss # Failure to thrive # Squamous cell carcinoma of the tongue undergoing chemotherapy and radiation therapy Plan spoke with the daughter Alis Chowdhury telephone number [phone] Case discussed and permission obtained for upper endoscopy with possible placement of a gastrostomy feeding tube endoscopically under intravenous moderate sedation Procedure scheduled for tomorrow Thank you very much for the opportunity to participate in the care of this patient Time Spent With Patient Time: Total time spent is greater than 50% in coordination of care (as documented) at patient's floor/unit and/or counseling patient:
[2025-01-05] VITALS (12 sets, daily range): BP systolic 123–148; BP diastolic 57–85; PULSE 76–92; RESP 18–23; TEMP 36.3–36.6; O2SAT 91–100
[2025-01-05] MEDS: DONEPEZIL HCL 5 MG TABLET 10 MG PO ×2 (00:38→20:01)
[2025-01-05] MEDS: SERTRALINE HCL 25 MG TABLET 50 MG PO ×2 (00:39→20:01)
[2025-01-05] MEDS: MELATONIN 3 MG TABLET 6 MG PO ×2 (00:39→20:01)
[2025-01-05] MEDS: PRAMIPEXOLE 0.25 MG TABLET 1.5 MG GT ×4 (00:40→21:12)
[2025-01-05] MEDS: LORazepam 0.5 MG TABLET PO ×2 (00:40→09:06)
[2025-01-05] MEDS: PREGABALIN 75 MG CAPSULE 300 MG GT ×3 (00:41→20:01)
[2025-01-05 05:58] LABS: Basophils # (Auto) 0.1 Thou/mm3 (0.0-0.2); Basophils % (Auto) 1 % (0-2.5); Eosinophils # (Auto) 0.5 Thou/mm3 (0.0-0.5); Eosinophils % (Auto) 5 % (0-10); Hematocrit 25.4 % (36.0-46.0); Immature Granulocytes % (Auto) 6 % (0-0); Immature Granulocytes Auto 0.58 Thou/mm3 (0.00-0.00); Lymphocytes # (Auto) 0.7 Thou/mm3 (1.0-4.8); Lymphocytes % (Auto) 7 % (10-50); Mean Corpuscular HGB Conc 32.3 g/dl (31.0-37.0); Mean Corpuscular Hemoglobin 26.6 pg (25.0-35.0); Mean Corpuscular Volume 83 fL (80-100); Monocytes % (Auto) 11 % (0-12); Neutrophils # (Auto) 6.8 Thou/mm3 (1.8-7.7); Neutrophils % (Auto) 71 % (37-80); Nucleated Red Blood Cell % 0 /100 WBC (0); Platelet Count 517 Thou/mm3 (140-440); Red Blood Count 3.08 Miln/mm3 (4.00-5.20); White Blood Count 9.6 Thou/mm3 (3.6-11.0)
[2025-01-05 06:01] LABS: Hemoglobin 8.2 g/dL (12.0-16.0)
[2025-01-05] MEDS: LEVOTHYROXINE SODIUM 25 MCG TABLET 50 MCG PO (06:13)
[2025-01-05 06:33] LABS: Alanine Aminotransferase 17 U/L (10-49); Albumin, Serum 3.1 gm/dL (3.4-4.8); Albumin/Globulin Ratio 1.2 (1.2-2.2); Alkaline Phosphatase 73 U/L (46-116); Anion Gap 7 (7-16); Aspartate Amino Transferase 21 U/L (0-34); BUN/Creatinine Ratio 16 Ratio (12-20); Bilirubin,Total < 0.2 mg/dL (0.3-1.2); Blood Urea Nitrogen 11 mg/dL (9-23); Calcium 8.5 mg/dL (8.3-10.6); Calcium (Corrected) 9.2 mg/dL (8.5-10.1); Carbon Dioxide 33.9 mMol/L (20.0-31.0); Chloride 100 mMol/L (98-107); Creatinine (Component) 0.7 mg/dL (0.6-1.3); Globulin 2.5 gm/dL (2.3-3.5); Glucose 117 mg/dL (74-106); Osmolality,Calculated 281 (275-295); Potassium 4.1 mMol/L (3.4-5.1); Sodium 141 mMol/L (136-145); Total Protein 5.6 gm/dL (5.7-8.2); eGFR > 60 See Note
[2025-01-05] MEDS: ALBUTEROL/IPRATROPIUM (Duoneb) RT SOL 3 ML NEBU INH ×3 (06:49→22:21)
[2025-01-05] MEDS: LANSOPRAZOLE 30 MG TAB.RAP.DR GT (09:06)
[2025-01-05] MEDS: cefTRIAXone/D5w 1gm IV premix 50 ML IV (09:06)
[2025-01-05] MEDS: SENNA TABLET 1 TAB GT (09:06)
[2025-01-05] MEDS: ENOXAPARIN SOD INJ 40 MG/0.4 ML SYRINGE SC (09:07)
--- NOTE | 2025-01-05 10:45 | PC.NURSE ---
Pickup time for patient is 2pm
--- NOTE | 2025-01-05 10:51 | CHAP ---
Patient was visited by a Spiritual Care Volunteer on 01/05/2025 between 0910 and 4083 and received comfort, encouragement and/or prayer.
--- NOTE | 2025-01-05 11:31 | PC.SS ---
Addendum entered by Aida Mcdaniel 01/05/25 12:16: SS was informed by transfer nurseDiana [facility] is unable to see pt at home today and start tube feedings due to transport being late in the day. SS was informed by bedside nurseZulma patient's daughter does not feel comfortable being taught how to do bolus feedings at home until HH can go out to her home. SS has called transportation with Angy at [facility] and Khloe from [facility]. Bedside nurseZulma and transfer nurseDiana are aware transport has been cancelled. Original Note: SS called [facility] this morning around 9:20am (9:20-10:08) and was transferred to 4 different representatives (Jes, Helena, Kathe, and Mikaela) who all explained they are not authorized and 1 traffic representative stated she is not trained to setup transportation for this member. SS spoke to the Ariana, Public Aid Eligibility Assistant from [facility] who is aware. Ariana was able to setup [facility] transportation. Ref# [id number]. Estimated time is 3-4 hours. 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 Dtr explained she is unable to leave pt alone at home to poultry picking machine tender her medication. has requested [facility]. has provided Ariana with [facility]'s phone# [phone]. has called and spoken to Angy from [facility] who will place pt on will call list until she has been contacted by [facility]. has sent patient's facesheet and ambulance form to [facility] using [employer].
--- NOTE | 2025-01-05 15:29 | PC.CM ---
Addendum entered by Diana Grove RN 01/05/25 17:41: Patient will be discharged tomorrow Am. I spoke to [facility] and I left a message for [facility]. I spoke to patient's nurse, Dr. Muñoz, and , to make sure patient leaves before 10am tomorrow. Discharge summary and PICC line paperwork will need to be sent. Original Note: I spoke to [facility] and they were not able to open patient today because they only had a nurse available to open early in the day. Patient could have been discharged on bolus feeds with proper teaching to family member. Nurse spoke to the family member and they do not feel comfortable taking patient home without [facility] to open. Patient will discharge tomorrow. I spoke to Aida, Dr. Muñoz, and bedside nurse. I let them know patient needs to discharged by 9am in the morning tomorrow.
--- NOTE | 2025-01-05 15:58 | PC.SS ---
SS was informed by transfer nurse, Diana [facility]ston has been arranged to follow up with pt tomorrow and they are requesting transport time no later than 10am. SS has informed Leigh Ann TABOR to schedule transport upon her arrival the earliest possible. Bedside nurse, Zulma is aware and will inform night nurse. Brigida MARISCAL is aware.
--- NOTE | 2025-01-05 18:52 | ESPR_ITS ---
<Statement entered by Phyllis Muñoz MD - 01/06/25 07:32> Patient was seen and examined by me personally. I have directly supervised and reviewed documentation by the team resident and agree with its findings with any exceptions or additional findings as below. Plan of care was discussed with the attending, Dr. Bee. Pending home health supplies to be ready at patient's home for PEG feeding and all medications to be ready by discharge. Likely d/c tomorrow. Phyllis Muñoz, PGY-2 Documentation for date of: 01/05/25 Subjective Subjective Interval history: Patient was seen and examined by the bedside. No acute overnight events. Patient continues to receive tube feeds, undergoing speech therapy. Pending supplies delivery to the home for the feeding and home health set up. Pending discharge in 24 hours. Exam Vital Signs Temp Pulse Resp BP Pulse Ox O2 Del Method O2 Flow Rate 97.4 F 81 18 138/60 H 94 L Nasal Cannula 3 01/05/25 16:00 01/05/25 16:00 01/05/25 16:00 01/05/25 16:00 01/05/25 16:00 01/05/25 16:00 01/05/25 16:00 Narrative Exam Physical Exam General: Resting in the bed. Chronically ill-appearing. HEENT: Normocephalic, atraumatic, mucous membranes dry. Brown colored mucus on the dorsum of the tongue. Thick secretions. Heart: Regular rate and rhythm, no murmurs. Lungs: CTABL. Abdomen: Soft, nondistended, nontender, positive bowel sounds. PEG tube site unremarkable.?No guarding or rebound tenderness. Neurologic: No gross neurological deficit, and patient able to move all 4 extremities. Extremities: No edema. Skin: Small ecchymoses on the arms. Objective Labs 01/05/25 05:16 01/05/25 05:16 Labs: Laboratory Results - last 24 hr 01/05/25 05:16 WBC 9.6 RBC 3.08 L Hgb 8.2 L Hct 25.4 L MCV 83 MCH 26.6 MCHC 32.3 RDW Std Deviation 57.0 H Plt Count 517 H Neut % (Auto) 71 Lymph % (Auto) 7 L [place] % (Auto) 11 Eos % (Auto) 5 Baso % (Auto) 1 Neut # (Auto) 6.8 Lymph # (Auto) 0.7 L [place] # (Auto) 1.0 H Eos # (Auto) 0.5 Baso # (Auto) 0.1 Immature Gran # (Auto) 0.58 H Absolute Nucleated RBC 0.00 Immature Gran % 6 H Nucleated RBC % 0 Sodium 141 Potassium 4.1 Chloride 100 Carbon Dioxide 33.9 H Anion Gap 7 BUN 11 Creatinine 0.7 Estim Creat Clear Calc 52.0 L eGFR > 60 BUN/Creatinine Ratio 16 Glucose 117 H Calculated Osmolality 281 Calcium 8.5 Corrected Calcium 9.2 Total Bilirubin < 0.2 L AST 21 ALT 17 Alkaline Phosphatase 73 Total Protein 5.6 L Albumin 3.1 L Globulin 2.5 Albumin/Globulin Ratio 1.2 Quality Measures Quality Measures VTE prophylaxis Advance care planning discussed with:: child Assessment & Plan Assessment Current Active Medications: Generic Name Dose Route Start Last Admin Trade Name Freq PRN Reason Stop Dose Admin Acetaminophen 650 mg 12/30/24 17:43 Acetaminophen 325 Mg Tablet PO 01/29/25 17:42 Q6H PRN Fever >100.4 or Pain 1-3 Albuterol/Ipratropium 3 ml 12/30/24 23:00 01/05/25 14:30 Albuterol/Ipratropium (Duoneb) Rt Usha 3 Ml Nebu INH 01/29/25 22:59 3 ml Q8HRRT JOSE Administration Donepezil HCl 10 mg 12/30/24 21:00 01/05/25 00:38 Donepezil Hcl 5 Mg Tablet PO 01/29/25 20:59 10 mg HS JOSE Administration Enoxaparin Sodium 40 mg 12/31/24 09:00 01/05/25 09:07 Enoxaparin Sod Inj 40 Mg/0.4 Ml Syringe SC 01/14/25 08:59 40 mg QDAY JOSE Administration Ceftriaxone Sodium/Dextrose 50 mls @ 100 mls/hr 12/31/24 09:00 01/05/25 09:06 Rocephin/D5w 1gm Iv Premix IV 01/07/25 08:59 100 mls/hr QDAY JOSE Administration Lansoprazole 30 mg 01/03/25 09:00 01/05/25 09:06 Lansoprazole 30 Mg Tab.Rap.Dr HACKETT 01/30/25 08:59 30 mg QDAY JOSE Administration Levothyroxine Sodium 50 mcg 12/31/24 06:00 01/05/25 06:13 Levothyroxine Sodium 25 Mcg Tablet PO 01/30/25 05:59 50 mcg ACBR JOSE Administration Magnesium Hydroxide 30 ml 12/30/24 17:43 Milk Of Magnesia Susp 30 Ml Udc PO 01/29/25 17:42 QDAY PRN CONSTIPATION Protocol Melatonin 6 mg 12/30/24 21:00 01/05/25 00:39 Melatonin 3 Mg Tablet PO 01/29/25 20:59 6 mg HS JOSE Administration Ondansetron HCl 4 mg 12/30/24 17:43 Ondansetron Inj 2 Mg/Ml Inj 2 Ml IV 01/29/25 17:42 Q6H PRN NAUSEA OR VOMITING Protocol Pramipexole Dihydrochloride 1.5 mg 01/01/25 14:00 01/05/25 13:31 Pramipexole 0.25 Mg Tablet GT 01/31/25 13:59 1.5 mg TID JOSE Administration Pregabalin 300 mg 01/05/25 09:00 01/05/25 09:11 Pregabalin 75 Mg Capsule GT 02/04/25 08:59 300 mg Q12HR JOSE Administration Protocol Sennosides 1 tab 01/01/25 12:18 01/05/25 09:06 Senna Tablet GT 01/30/25 08:59 1 tab QDAY JOSE Administration Protocol Sertraline HCl 50 mg 12/30/24 21:00 01/05/25 00:39 Sertraline Hcl 25 Mg Tablet PO 01/29/25 20:59 50 mg HS JOSE Administration Plan 89-year-old female with past medical history of COPD on 3.5L home O2, hypertension, 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 Patient was admitted due to community-acquired pneumonia, failure to thrive, and dysphagia due to squamous cell carcinoma of the tongue. #Failure to thrive #Dysphagia #Squamous cell carcinoma of the tongue #General weakness #Frailty Patient has a history of squamous cell carcinoma of the tongue, status post radiotherapy on truda diagnosed in 2023. Per daughter had dysphagia which has gradually worsened recently. She is interested in PEG tube placement to improve nutrition. Speech therapy evaluated patient who stated that patient was unable to interact with oral feeds, recommended continue tube feedings. Plan: ? Oral care ? GI consulted, appreciate recommendations ? Dietitian consulted, appreciate recommendations ? PEG tube site wound care ? Aspiration precautions ? Continue PEG-tube feedings at goal rate ? Plan for discharge once home health PEG feeding supplies are ready at the patient's home #Anemia of chronic disease Anemia of chronic disease. Iron panel is consistent with anemia of chronic disease. Reticulocyte count is elevated Per daughter, she denies bloody bowel movements. 12/30/24: 2 units of PRBC transfusion 12/31/24: Hgb 8.1. 01/02/25: Hgb 8.4. Plan: - Monitor CBC #Acute on chronic respiratory failure #Community-acquired pneumonia #History of COPD Blood culture preliminary negative, sputum culture grew gram-positive cocci, MRSA screen negative. 12/31/2024 Sputum culture grew Staphylococcus schleiferi sensitive to ceftriaxone Plan: ? Oxygen delivery as needed, goal SaO2 88 to 92% ? DuoNeb as needed ? Ceftriaxone 12/30/2024?current ? Azithromycin 12/30/2024?current #Hypertension Home medications include losartan 25 mg qday. Plan: ? Home medication on hold due to normal blood pressure #Hypothyroidism Plan: ? Continue home levothyroxine 50 mcg daily #Restless leg syndrome Patient was on Pramipexole ER 4.5 mg daily, which is not crushable. Plan: ? Continue pramipexole 1.5 mg TID through G-tube #Depression Plan: ? Continue home sertraline 50 mg daily #Chronic pain Patient reported that patient has any negative reaction to opioids, can become agitated. Plan: ? Tylenol for pain control as needed ? Avoid opiate medications ? Continue home pregabalin 300 mg q12h #Blindness secondary to macular degeneration #Hearing loss Chronic conditions, stable Health maintenance: FEN: Tube feeds, Jevity 1.5 at 50 ml/hr DVT prophylaxis: Lovenox 40 mg subQ GI prophylaxis: None Dispo: Med Tele CODE STATUS: DNR, daughter is okay with artificial feedings Plan of care discussed with attending Dr. Bee, PGY-[address] Muñoz and PGY-[address] Whittaker. Areli Cm MD, PGY 1. Attending Provider Attestation/Addendum I, Chantale Bee DO, attest that I was physically present for the mistry portions of the service and evaluated the patient with the resident and I reviewed and discussed the case with the resident and agree with the resident's findings and plans of care as documented above Patient is much more alert today. She is stable for discharge home, but [facility] unable to go to home until tomorrow. Anticipate DC early in AM. No acute events overnight otherwise. Home meds authorized change in formulation for GT.
--- NOTE | 2025-01-05 21:34 | ESPR_ITS ---
Documentation for date of: 01/05/25 Subjective Subjective Interval history: No drainage from the PEG site PEG tube working well Exam Vital Signs Temp Pulse Resp BP Pulse Ox O2 Del Method O2 Flow Rate 97.9 F 81 19 148/62 H 93 L Nasal Cannula 3 01/05/25 20:00 01/05/25 20:41 01/05/25 20:41 01/05/25 20:00 01/05/25 20:41 01/05/25 20:00 01/05/25 20:41 Objective Labs 01/05/25 05:16 01/05/25 05:16 Labs: Laboratory Results - last 24 hr 01/05/25 05:16 WBC 9.6 RBC 3.08 L Hgb 8.2 L Hct 25.4 L MCV 83 MCH 26.6 MCHC 32.3 RDW Std Deviation 57.0 H Plt Count 517 H Neut % (Auto) 71 Lymph % (Auto) 7 L [place] % (Auto) 11 Eos % (Auto) 5 Baso % (Auto) 1 Neut # (Auto) 6.8 Lymph # (Auto) 0.7 L [place] # (Auto) 1.0 H Eos # (Auto) 0.5 Baso # (Auto) 0.1 Immature Gran # (Auto) 0.58 H Absolute Nucleated RBC 0.00 Immature Gran % 6 H Nucleated RBC % 0 Sodium 141 Potassium 4.1 Chloride 100 Carbon Dioxide 33.9 H Anion Gap 7 BUN 11 Creatinine 0.7 Estim Creat Clear Calc 52.0 L eGFR > 60 BUN/Creatinine Ratio 16 Glucose 117 H Calculated Osmolality 281 Calcium 8.5 Corrected Calcium 9.2 Total Bilirubin < 0.2 L AST 21 ALT 17 Alkaline Phosphatase 73 Total Protein 5.6 L Albumin 3.1 L Globulin 2.5 Albumin/Globulin Ratio 1.2 Impressions Impression: Failure to thrive Placement of a new PEG tube working well Assessment & Plan A&P Narrative # Anemia blood loss # Failure to thrive # Squamous cell carcinoma of the tongue undergoing chemotherapy and radiation therapy Plan spoke with the daughter Alis Chowdhury telephone number [phone] Case discussed and permission obtained for upper endoscopy with possible placement of a gastrostomy feeding tube endoscopically under intravenous moderate sedation Procedure scheduled for tomorrow Thank you very much for the opportunity to participate in the care of this patient Time Spent With Patient Time: Total time spent is greater than 50% in coordination of care (as documented) at patient's floor/unit and/or counseling patient:
[2025-01-06] VITALS (12 sets, daily range): BP systolic 124–163; BP diastolic 49–102; PULSE 74–90; RESP 18–32; TEMP 36.3–36.7; O2SAT 90–100
[2025-01-06] MEDS: PRAMIPEXOLE 0.25 MG TABLET 1.5 MG GT ×3 (05:25→22:01)
[2025-01-06] MEDS: LEVOTHYROXINE SODIUM 25 MCG TABLET 50 MCG PO (05:25)
[2025-01-06] MEDS: ALBUTEROL/IPRATROPIUM (Duoneb) RT SOL 3 ML NEBU INH ×3 (07:02→22:40)
--- NOTE | 2025-01-06 07:03 | PC.SS ---
Addendum entered by SHARONA Baldwin 01/06/25 14:31: Rounding note: patient had rapid response, patient to stay for monitoring. Transportation cancelled. Addendum entered by SHARONA Baldwin 01/06/25 10:10: Bed side nurse is aware and Dr. Whittaker was updated. Addendum entered by SHARONA Baldwin 01/06/25 10:10: ETA scheduled for 4pm this afternoon as the patient is pending medication to be available prior to discharge. Original Note: SS follow up: scheduled transportation for patient via [employer], reference number: [id number]. Patient to return back home to follow up with home health agency this morning. Pending ETA for transport.
--- NOTE | 2025-01-06 07:43 | PC.NURSE ---
Call to patient's Daughter Alis went unanswered message left to return call as soon as possible.
[2025-01-06] MEDS: cefTRIAXone/D5w 1gm IV premix 50 ML IV (09:12)
[2025-01-06] MEDS: LANSOPRAZOLE 30 MG TAB.RAP.DR GT (09:13)
[2025-01-06] MEDS: ENOXAPARIN SOD INJ 40 MG/0.4 ML SYRINGE SC (09:13)
[2025-01-06] MEDS: PREGABALIN 75 MG CAPSULE 300 MG GT ×2 (09:13→22:03)
[2025-01-06] MEDS: SENNA TABLET 1 TAB GT (09:13)
[2025-01-06 09:48] LABS: Basophils # (Auto) 0.1 Thou/mm3 (0.0-0.2); Basophils % (Auto) 1 % (0-2.5); Eosinophils # (Auto) 0.1 Thou/mm3 (0.0-0.5); Eosinophils % (Auto) 1 % (0-10); Hematocrit 22.8 % (36.0-46.0); Immature Granulocytes % (Auto) 4 % (0-0); Immature Granulocytes Auto 0.36 Thou/mm3 (0.00-0.00); Lymphocytes # (Auto) 0.7 Thou/mm3 (1.0-4.8); Lymphocytes % (Auto) 7 % (10-50); Mean Corpuscular HGB Conc 33.3 g/dl (31.0-37.0); Mean Corpuscular Hemoglobin 27.2 pg (25.0-35.0); Mean Corpuscular Volume 82 fL (80-100); Monocytes # (Auto) 1.1 Thou/mm3 (0.0-0.8); Monocytes % (Auto) 11 % (0-12); Neutrophils # (Auto) 7.3 Thou/mm3 (1.8-7.7); Neutrophils % (Auto) 76 % (37-80); Nucleated Red Blood Cell % 0 /100 WBC (0); Platelet Count 494 Thou/mm3 (140-440); RDW Standard Deviation 55.7 fL (36.4-46.3); Red Blood Count 2.79 Miln/mm3 (4.00-5.20); White Blood Count 9.5 Thou/mm3 (3.6-11.0)
[2025-01-06 10:04] LABS: Alanine Aminotransferase 21 U/L (10-49); Albumin/Globulin Ratio 1.1 (1.2-2.2); Alkaline Phosphatase 78 U/L (46-116); Anion Gap 5 (7-16); Aspartate Amino Transferase 25 U/L (0-34); BUN/Creatinine Ratio 20 Ratio (12-20); Bilirubin,Total < 0.2 mg/dL (0.3-1.2); Blood Urea Nitrogen 14 mg/dL (9-23); Calcium 8.5 mg/dL (8.3-10.6); Calcium (Corrected) 9.3 mg/dL (8.5-10.1); Carbon Dioxide 33.2 mMol/L (20.0-31.0); Chloride 98 mMol/L (98-107); Creatinine (Component) 0.7 mg/dL (0.6-1.3); Globulin 2.7 gm/dL (2.3-3.5); Glucose 123 mg/dL (74-106); Osmolality,Calculated 273 (275-295); Potassium 4.3 mMol/L (3.4-5.1); Sodium 136 mMol/L (136-145); Total Protein 5.7 gm/dL (5.7-8.2); eGFR > 60 See Note
[2025-01-06 10:25] LABS: Hemoglobin 7.6 g/dL (12.0-16.0)
--- NOTE | 2025-01-06 13:03 | ESPR_ITS ---
Documentation for date of: 01/06/25 Subjective Subjective Interval history: Episodes of hematemesis today H&H is 7.8 and 23.9 I agree with the assessment of the internal medicine team, that the blood came from the oropharyngeal area of her already existing diagnosis No need for any endoscopy Exam Vital Signs Temp Pulse Resp BP Pulse Ox O2 Del Method O2 Flow Rate 98 F 78 22 H 145/65 H 95 Nasal Cannula 3 01/06/25 12:00 01/06/25 12:00 01/06/25 12:00 01/06/25 12:00 01/06/25 12:00 01/06/25 12:00 01/06/25 12:00 Objective Labs 01/06/25 15:05 01/06/25 08:50 Labs: Laboratory Results - last 24 hr 01/06/25 08:50 WBC 9.5 RBC 2.79 L Hgb 7.6 L Hct 22.8 L MCV 82 MCH 27.2 MCHC 33.3 RDW Std Deviation 55.7 H Plt Count 494 H Neut % (Auto) 76 Lymph % (Auto) 7 L [place] % (Auto) 11 Eos % (Auto) 1 Baso % (Auto) 1 Neut # (Auto) 7.3 Lymph # (Auto) 0.7 L [place] # (Auto) 1.1 H Eos # (Auto) 0.1 Baso # (Auto) 0.1 Immature Gran # (Auto) 0.36 H Absolute Nucleated RBC 0.00 Immature Gran % 4 H Nucleated RBC % 0 Sodium 136 Potassium 4.3 Chloride 98 Carbon Dioxide 33.2 H Anion Gap 5 L BUN 14 Creatinine 0.7 Estim Creat Clear Calc 52.0 L eGFR > 60 BUN/Creatinine Ratio 20 Glucose 123 H Calculated Osmolality 273 L Calcium 8.5 Corrected Calcium 9.3 Total Bilirubin < 0.2 L AST 25 ALT 21 Alkaline Phosphatase 78 Total Protein 5.7 Albumin 3.0 L Globulin 2.7 Albumin/Globulin Ratio 1.1 L Impressions Impression: Oropharyngeal bleed Continue current management Assessment & Plan A&P Narrative # Anemia blood loss # Failure to thrive # 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
--- NOTE | 2025-01-06 14:29 | EVENTNT_ITS ---
Documentation for date of: 01/06/25 Event Note Event Note: SR. MERCHANDISE PLANNER was called at 14:10 today for patient having an episode of hematemesis. Nursing staff and daughter who were at bedside informing that patient said that she was sitting up when all of a sudden she began gagging and coughing out darkish blood with some clots. The blood was coming out of her nose when she was gagging but most of it came out of her mouth. She vomited about 3 ounces worth of blood. Her saturations remained stable in the 90s on 3 L nasal cannula. We suctioned the patient. Organ to hold Lovenox at this time and repeat H&H to monitor hemoglobin. Patient's source of bleeding is likely mouth ulcers from her tongue cancer and radiation therapy. Will continue oral care and keeping a close eye on the patient. I discussed patient's care with attending physician, Dr Tom Whittaker PGY3
--- NOTE | 2025-01-06 15:06 | ESPR_ITS ---
<Statement entered by Phyllis Muñoz MD - 01/07/25 08:30> Patient was seen and examined by me personally. I have directly supervised and reviewed documentation by the team resident and agree with its findings with any exceptions or additional findings as below. Plan of care was discussed with the attending, Dr. Santos. Phyllis Muñoz, PGY-2 Documentation for date of: 01/06/25 Subjective Subjective Interval history: Patient was seen and examined by the bedside. No acute overnight events. Patient was seen at the bedside this AM, was resting in the bed. Patient's daughter reported that pharmacies where prescription for liquid pregabalin was sent don't have this formulation in inventory. Prescription was sent to another [facility], that can provide it the next day. Later, in the afternoon she had a rapid response due to the oral bleeding. Patient was hemodynamically stable, oral cavity was suctioned. Lovenox was held, repeat H&H ordered. Exam Vital Signs Temp Pulse Resp BP Pulse Ox O2 Del Method O2 Flow Rate 98 F 80 20 145/65 H 100 Nasal Cannula 3 01/06/25 14:17 01/06/25 14:55 01/06/25 14:55 01/06/25 14:17 01/06/25 14:55 01/06/25 12:00 01/06/25 14:55 Narrative Exam Physical Exam General: Resting in the bed. Chronically ill-appearing. HEENT: Normocephalic, atraumatic, mucous membranes dry. Brown colored mucus on the dorsum of the tongue. Thick secretions. Heart: Regular rate and rhythm, no murmurs. Lungs: CTABL. Abdomen: Soft, nondistended, nontender, positive bowel sounds. PEG tube site unremarkable.?No guarding or rebound tenderness. Neurologic: Bilateral blindness. Hearing loss. Patient able to move all 4 extremities. Extremities: No edema. Skin: Small ecchymoses on the arms. Objective Labs 01/06/25 15:05 01/06/25 08:50 Labs: Laboratory Results - last 24 hr 01/06/25 08:50 WBC 9.5 RBC 2.79 L Hgb 7.6 L Hct 22.8 L MCV 82 MCH 27.2 MCHC 33.3 RDW Std Deviation 55.7 H Plt Count 494 H Neut % (Auto) 76 Lymph % (Auto) 7 L [place] % (Auto) 11 Eos % (Auto) 1 Baso % (Auto) 1 Neut # (Auto) 7.3 Lymph # (Auto) 0.7 L [place] # (Auto) 1.1 H Eos # (Auto) 0.1 Baso # (Auto) 0.1 Immature Gran # (Auto) 0.36 H Absolute Nucleated RBC 0.00 Immature Gran % 4 H Nucleated RBC % 0 Sodium 136 Potassium 4.3 Chloride 98 Carbon Dioxide 33.2 H Anion Gap 5 L BUN 14 Creatinine 0.7 Estim Creat Clear Calc 52.0 L eGFR > 60 BUN/Creatinine Ratio 20 Glucose 123 H Calculated Osmolality 273 L Calcium 8.5 Corrected Calcium 9.3 Total Bilirubin < 0.2 L AST 25 ALT 21 Alkaline Phosphatase 78 Total Protein 5.7 Albumin 3.0 L Globulin 2.7 Albumin/Globulin Ratio 1.1 L Quality Measures Quality Measures VTE prophylaxis Advance care planning discussed with:: child Assessment & Plan Assessment Current Active Medications: Generic Name Dose Route Start Last Admin Trade Name Freq PRN Reason Stop Dose Admin Acetaminophen 650 mg 12/30/24 17:43 Acetaminophen 325 Mg Tablet PO 01/29/25 17:42 Q6H PRN Fever >100.4 or Pain 1-3 Albuterol/Ipratropium 3 ml 12/30/24 23:00 01/06/25 14:53 Albuterol/Ipratropium (Duoneb) Rt Usha 3 Ml Nebu INH 01/29/25 22:59 3 ml Q8HRRT JOSE Administration Donepezil HCl 10 mg 12/30/24 21:00 01/05/25 20:01 Donepezil Hcl 5 Mg Tablet PO 01/29/25 20:59 10 mg HS JOSE Administration Enoxaparin Sodium 40 mg 12/31/24 09:00 01/06/25 09:13 Enoxaparin Sod Inj 40 Mg/0.4 Ml Syringe SC 01/14/25 08:59 40 mg QDAY JOSE Administration Ceftriaxone Sodium/Dextrose 50 mls @ 100 mls/hr 12/31/24 09:00 01/06/25 09:12 Rocephin/D5w 1gm Iv Premix IV 01/07/25 08:59 100 mls/hr QDAY JOSE Administration Lansoprazole 30 mg 01/03/25 09:00 01/06/25 09:13 Lansoprazole 30 Mg Tab. GT 01/30/25 08:59 30 mg QDAY JOSE Administration Levothyroxine Sodium 50 mcg 12/31/24 06:00 01/06/25 05:25 Levothyroxine Sodium 25 Mcg Tablet PO 01/30/25 05:59 50 mcg ACBR JOSE Administration Magnesium Hydroxide 30 ml 12/30/24 17:43 Milk Of Magnesia Susp 30 Ml Udc PO 01/29/25 17:42 QDAY PRN CONSTIPATION Protocol Melatonin 6 mg 12/30/24 21:00 01/05/25 20:01 Melatonin 3 Mg Tablet PO 01/29/25 20:59 6 mg HS JOSE Administration Ondansetron HCl 4 mg 12/30/24 17:43 Ondansetron Inj 2 Mg/Ml Inj 2 Ml IV 01/29/25 17:42 Q6H PRN NAUSEA OR VOMITING Protocol Pramipexole Dihydrochloride 1.5 mg 01/01/25 14:00 01/06/25 13:29 Pramipexole 0.25 Mg Tablet GT 01/31/25 13:59 1.5 mg TID JOSE Administration Pregabalin 300 mg 01/05/25 09:00 01/06/25 09:13 Pregabalin 75 Mg Capsule GT 02/04/25 08:59 300 mg Q12HR JOSE Administration Protocol Sennosides 1 tab 01/01/25 12:18 01/06/25 09:13 Senna Tablet GT 01/30/25 08:59 1 tab QDAY JOSE Administration Protocol Sertraline HCl 50 mg 12/30/24 21:00 01/05/25 20:01 Sertraline Hcl 25 Mg Tablet PO 01/29/25 20:59 50 mg HS JOSE Administration Plan 89-year-old female with past medical history of COPD on 3.5L home O2, hypertension, 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 Patient was admitted due to community-acquired pneumonia, failure to thrive, and dysphagia due to squamous cell carcinoma of the tongue. #Failure to thrive #Dysphagia #Squamous cell carcinoma of the tongue #General weakness #Frailty Patient has a history of squamous cell carcinoma of the tongue, status post radiotherapy on diagnosed in 2023. Per daughter had dysphagia which has gradually worsened recently. She is interested in PEG tube placement to improve nutrition. Speech therapy evaluated patient who stated that patient was unable to interact with oral feeds, recommended continue tube feedings. Plan: ? Oral care ? GI consulted, appreciate recommendations ? Dietitian consulted, appreciate recommendations ? PEG tube site wound care ? Aspiration precautions ? Continue PEG-tube feedings at goal rate ? Plan for discharge once home health PEG feeding supplies are ready at the patient's home #Anemia of chronic disease Anemia of chronic disease. Iron panel is consistent with anemia of chronic disease. Reticulocyte count is elevated Per daughter, she denies bloody bowel movements. 12/30/24: 2 units of PRBC transfusion 12/31/24: Hgb 8.1. 01/02/25: Hgb 8.4. Plan: - Monitor CBC - repeat H&H 01/06/25 #Acute on chronic respiratory failure #Community-acquired pneumonia #History of COPD Blood culture preliminary negative, sputum culture grew gram-positive cocci, MRSA screen negative. 12/31/2024 Sputum culture grew Staphylococcus schleiferi sensitive to ceftriaxone Plan: ? Oxygen delivery as needed, goal SaO2 88 to 92% ? DuoNeb as needed ? Ceftriaxone 12/30/2024?current ? Azithromycin 12/30/2024?current #Hypertension Home medications include losartan 25 mg qday. Plan: ? Home medication on hold due to normal blood pressure #Hypothyroidism Plan: ? Continue home levothyroxine 50 mcg daily #Restless leg syndrome Patient was on Pramipexole ER 4.5 mg daily, which is not crushable. Plan: ? Continue pramipexole 1.5 mg TID through G-tube #Depression Plan: ? Continue home sertraline 50 mg daily #Chronic pain Patient reported that patient has any negative reaction to opioids, can become agitated. Plan: ? Tylenol for pain control as needed ? Avoid opiate medications ? Continue home pregabalin 300 mg q12h #Blindness secondary to macular degeneration #Hearing loss Chronic conditions, stable Health maintenance: FEN: Tube feeds, Jevity 1.5 at 50 ml/hr DVT prophylaxis: Lovenox 40 mg subQ GI prophylaxis: None Dispo: Med Tele CODE STATUS: DNR, daughter is okay with artificial feedings Plan of care discussed with attending Dr. Santos, PGY-[address] Muñoz and PGY-[address] Whittaker. Areli Cm MD, PGY 1. Attending Provider Attestation/Addendum I attest that I was physically present for the evaluation, physical examination, lab and imaging review of the patient with the residents. I discussed the case with the residents and agree with the findings and plans of care as documented above. At bedside today, patient appears comfortable and denies any new complaints. Patient was medically cleared for discharge awaiting liquid pregabalin to be delivered before discharge. But patient had a rapid response called this afternoon after an episode of hematemesis. As per the daughter at bedside, patient is started gagging and coughing with blood and clots from her mouth. Continues to saturate well on 3 L nasal cannula. We will hold her Lovenox. Repeat hemoglobin continues to be stable at 7.8. Bleeding source appears to be the mouth ulcers from her tongue cancer and radiation therapy. We will continue to monitor for bleeding episodes and hemoglobin level. If patient remains stable, gets her delivered, we will plan for discharge tomorrow. Dc Santos MD
[2025-01-06 15:26] LABS: Hematocrit 23.9 % (36.0-46.0)
[2025-01-06 15:32] LABS: Hemoglobin 7.8 g/dL (12.0-16.0)
[2025-01-06] MEDS: SERTRALINE HCL 25 MG TABLET 50 MG PO (22:02)
[2025-01-06] MEDS: MELATONIN 3 MG TABLET 6 MG PO (22:03)
[2025-01-06] MEDS: DONEPEZIL HCL 5 MG TABLET 10 MG PO (22:03)
[2025-01-07] VITALS (7 sets, daily range): BP systolic 119–146; BP diastolic 50–72; PULSE 70–90; RESP 18–20; TEMP 36.2–36.7; O2SAT 92–100
[2025-01-07] MEDS: LEVOTHYROXINE SODIUM 25 MCG TABLET 50 MCG PO (05:08)
[2025-01-07] MEDS: PRAMIPEXOLE 0.25 MG TABLET 1.5 MG GT ×2 (05:08→15:00)
[2025-01-07 06:15] LABS: Basophils # (Auto) 0.1 Thou/mm3 (0.0-0.2); Basophils % (Auto) 1 % (0-2.5); Eosinophils # (Auto) 0.2 Thou/mm3 (0.0-0.5); Eosinophils % (Auto) 2 % (0-10); Hematocrit 23.3 % (36.0-46.0); Immature Granulocytes % (Auto) 4 % (0-0); Immature Granulocytes Auto 0.38 Thou/mm3 (0.00-0.00); Lymphocytes # (Auto) 0.8 Thou/mm3 (1.0-4.8); Lymphocytes % (Auto) 9 % (10-50); Mean Corpuscular HGB Conc 33.9 g/dl (31.0-37.0); Mean Corpuscular Hemoglobin 27.9 pg (25.0-35.0); Mean Corpuscular Volume 82 fL (80-100); Monocytes # (Auto) 1.1 Thou/mm3 (0.0-0.8); Monocytes % (Auto) 12 % (0-12); Neutrophils # (Auto) 6.4 Thou/mm3 (1.8-7.7); Neutrophils % (Auto) 73 % (37-80); Nucleated Red Blood Cell % 0 /100 WBC (0); Platelet Count 531 Thou/mm3 (140-440); RDW Standard Deviation 55.9 fL (36.4-46.3); Red Blood Count 2.83 Miln/mm3 (4.00-5.20); White Blood Count 8.9 Thou/mm3 (3.6-11.0)
[2025-01-07 06:17] LABS: Hemoglobin 7.9 g/dL (12.0-16.0)
[2025-01-07] MEDS: ALBUTEROL/IPRATROPIUM (Duoneb) RT SOL 3 ML NEBU INH ×2 (06:59→15:32)
[2025-01-07 07:01] LABS: Alanine Aminotransferase 30 U/L (10-49); Albumin, Serum 3.3 gm/dL (3.4-4.8); Albumin/Globulin Ratio 1.2 (1.2-2.2); Alkaline Phosphatase 83 U/L (46-116); Anion Gap 9 (7-16); Aspartate Amino Transferase 38 U/L (0-34); BUN/Creatinine Ratio 27 Ratio (12-20); Bilirubin,Total < 0.2 mg/dL (0.3-1.2); Blood Urea Nitrogen 16 mg/dL (9-23); Calcium 9.3 mg/dL (8.3-10.6); Calcium (Corrected) 9.9 mg/dL (8.5-10.1); Carbon Dioxide 32.7 mMol/L (20.0-31.0); Chloride 97 mMol/L (98-107); Creatinine (Component) 0.6 mg/dL (0.6-1.3); Estimated Creatinine Clearance 60.7 mL/min (>60); Globulin 2.8 gm/dL (2.3-3.5); Glucose 111 mg/dL (74-106); Osmolality,Calculated 279 (275-295); Potassium 4.4 mMol/L (3.4-5.1); Sodium 139 mMol/L (136-145); Total Protein 6.1 gm/dL (5.7-8.2); eGFR > 60 See Note
[2025-01-07] MEDS: PREGABALIN 75 MG CAPSULE 300 MG GT ×2 (08:55→19:39)
[2025-01-07] MEDS: SENNA TABLET 1 TAB GT (08:56)
[2025-01-07] MEDS: LANSOPRAZOLE 30 MG TAB.RAP.DR GT (08:56)
--- NOTE | 2025-01-07 09:36 | PD.IMPROG ---
Documentation for date of: 01/07/25 Exam Vital Signs Temp Pulse Resp BP Pulse Ox O2 Del Method O2 Flow Rate 97.4 F 82 20 134/64 H 93 L Nasal Cannula 3 01/07/25 08:00 01/07/25 08:00 01/07/25 08:00 01/07/25 08:00 01/07/25 08:00 01/07/25 08:00 01/07/25 08:00 Objective Labs 01/07/25 04:50 01/07/25 04:50 Labs: Laboratory Results - last 24 hr 01/06/25 01/06/25 01/07/25 08:50 15:05 04:50 WBC 9.5 8.9 RBC 2.79 L 2.83 L Hgb 7.6 L 7.8 L 7.9 L Hct 22.8 L 23.9 L 23.3 L MCV 82 82 MCH 27.2 27.9 MCHC 33.3 33.9 RDW Std Deviation 55.7 H 55.9 H Plt Count 494 H 531 H D Neut % (Auto) 76 73 Lymph % (Auto) 7 L 9 L [place] % (Auto) 11 12 Eos % (Auto) 1 2 Baso % (Auto) 1 1 Neut # (Auto) 7.3 6.4 Lymph # (Auto) 0.7 L 0.8 L [place] # (Auto) 1.1 H 1.1 H Eos # (Auto) 0.1 0.2 Baso # (Auto) 0.1 0.1 Immature Gran # (Auto) 0.36 H 0.38 H Absolute Nucleated RBC 0.00 0.00 Immature Gran % 4 H 4 H Nucleated RBC % 0 0 Sodium 136 139 Potassium 4.3 4.4 Chloride 98 97 L Carbon Dioxide 33.2 H 32.7 H Anion Gap 5 L 9 BUN 14 16 Creatinine 0.7 0.6 Estim Creat Clear Calc 52.0 L 60.7 L eGFR > 60 > 60 BUN/Creatinine Ratio 20 27 H Glucose 123 H 111 H Calculated Osmolality 273 L 279 Calcium 8.5 9.3 Corrected Calcium 9.3 9.9 Total Bilirubin < 0.2 L < 0.2 L AST 25 38 H ALT 21 30 Alkaline Phosphatase 78 83 Total Protein 5.7 6.1 Albumin 3.0 L 3.3 L Globulin 2.7 2.8 Albumin/Globulin Ratio 1.1 L 1.2 Assessment & Plan A&P Narrative # Anemia blood loss # Failure to thrive # 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
--- NOTE | 2025-01-07 11:11 | PC.SS ---
Addendum entered by Leigh Ann R[place] [facility] [place]07[place] 17:14: ETA 1800, bed side nurse aware. Addendum entered by Leigh Ann Rm [facility] [place]/07/25 12:54: Bed side nurse was updated. Addendum entered by Leigh Ann Rm [facility] [place]/07/25 12:54: [facility] updated ETA 1700. Addendum entered by Leigh Ann Rm [facility] [place]/07[place] 12:53: SS update: patient's daughter informs [facility] can see the patient tomorrow 01/08/25 at 10am. Per daughter she is requesting hands on education on the feeds for the patient. Joesph the managed security sales consultant has spoke with the daughter and bed side nurse to assist with hands on education to help daughter feel comfortable with home administration. Daughter is requesting for transportation to be moved to later time to not feel rushed. Addendum entered by Leigh Ann Rm COMPUTED TOMOGRAPHY TECHNOLOGIST 01/07/25 12:41: Updated patient's daughter, Alis Chowdhury on ETA. Addendum entered by Leigh Ann Rm [facility] [place]07[place] 12:35: [facility] ETA 3pm. Bed side nurse aware. Original Note: SS follow up: patient's daughter has confirmed that the patient will receive medications today. Patient will need ambulance transport home. [facility] transportation reference number: [id number]. Pending ETA.
--- NOTE | 2025-01-07 15:25 | PC.NURSE ---
Bedside education to daughter Alis on bolus feeding and medication administration via peg tube, Alis verbalized understanding and return demonstration. Alis verbalized confidence in performing bolus feedings and medication administration via peg tube.
--- NOTE | 2025-01-07 16:26 | ESDS_ITS ---
<Statement entered by Phyllis Muñoz MD - 01/08/25 07:45> Patient was seen and examined by me personally. I have reviewed the below documentation by the team resident and agree with its findings with any exceptions as below. Discharge plan was discussed with the attending, Dr. Santos. Phyllis Muñoz, PGY-2 Planned Discharge Date 01/07/25 DS: Providers Provider Date of admission: 12/30/24 17:40 Primary care physician: JUAN Powers Admitting Provider: Chantale Bee DO Attending Provider on Admission: Dc Santos MD Consults: 12/30/24 17:50 Referral Registered Dietitian Stat Comment: Failure to thrive. Daughter interested in G-tube Referral Speech Therapy Stat Comment: 12/30/24 18:20 Consult to Gastroenterology Stat Comment: PEG tube placement, SCC of the tongue Consulting Provider: Ricki Cleveland 12/31/24 03:10 Health Equity Referral - Knowledge Deficit Routine Comment: Positive screening for knowledge deficit needs. 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 Her hemoglobin was found to be 6.9, she received 2 units of PRBC, had leukocytosis 50.1, chest x-ray showed bibasilar pneumonia, she was saturating well on 6 liters of nasal cannula. She was started on antibiotics, DuoNebs inhalations and was admitted due to the failure to thrive, dysphagia, community-acquired pneumonia. Had a discussion with daughter, she agreed to the PEG tube placement and artificial feeds. GI specialist Dr. Cleveland was consulted for PEG tube placement, and PEG tube was successfully placed on 12/31/2024 and patient was started on tube feeds. The daughter received education on how to do tube feeds at home. During admission, oxygen requirements are have gone down, her overall condition has improved, her mental status has improved. She finished the course of antibiotics. She had home health services arranged for her through [facility]. Medication formulations were changed to the formulation that appropriate for G- tube intake. Patient had a rapid response on 01/06/2025 due to oral bleeding, she was suctioned, pharmacological DVT prophylaxis was withheld, repeat H&H showed stable level of hemoglobin. Patient was seen and examined by the bedside, daughter was at the bedside, had a discussion regarding the plan of discharge, all questions were answered to the satisfaction. Nurse provided education regarding tube feeds. Patient is set to be discharged home with home health. Hospital diagnoses: #Failure to thrive #Dysphagia #Squamous cell carcinoma of the tongue #General weakness #Frailty #Anemia of chronic disease #Acute on chronic respiratory failure #Community-acquired pneumonia #History of COPD #Hypertension #Hypothyroidism #Restless leg syndrome #Depression #Chronic pain #Blindness secondary to macular degeneration #Hearing loss Discharge Recommendations: -Follow up with PCP within 1 week of discharge -Follow up with oncologist -You have been set up with [facility] home health services with follow up for speech therapy -Use Debrox drops for clearing ear impaction, drop into ear and let soak -Take cefdinir 300 mg PO twice a day for 4 more days for pneumonia -Continue rest of medications as previously prescribed -Return to the ED or call EMS if symptoms return and/or worsen. Plan of care discussed with attending Dr. Santos, PGY-[address] Muñoz and PGY-[address] Whittaker. Areli Cm MD, PGY 1. Time Spent with Patient Time attestation: Total time spent providing and/or coordinating discharge services: Time spent: Less than 30 minutes Exam Vital Signs Temp Pulse Resp BP Pulse Ox O2 Del Method O2 Flow Rate 97.1 F 70 18 134/70 H 100 Nasal Cannula 3 01/07/25 12:00 01/07/25 15:33 01/07/25 15:33 01/07/25 12:00 01/07/25 15:33 01/07/25 12:00 01/07/25 15:33 Narrative Exam Physical Exam General: Resting in the bed. Conversational. Chronically ill-appearing. HEENT: Normocephalic, atraumatic, mucous membranes dry. Brown colored mucus on the dorsum of the tongue. Thick secretions. Heart: Regular rate and rhythm, no murmurs. Lungs: CTABL. Abdomen: Soft, nondistended, nontender, positive bowel sounds. PEG tube site unremarkable.?No guarding or rebound tenderness. Neurologic: Bilateral blindness. Hearing loss. Patient able to move all 4 extremities. Extremities: No edema. Skin: Small ecchymoses on the arms. Discharge Plan Plan Patient Disposition: Home w/HOME HEALTH Patient condition on transfer: Stable Care Plan Goals: Discharge Recommendations: -Follow up with PCP within 1 week of discharge -Follow up with oncologist -You have been set up with [facility] health services with follow up for speech therapy -Use Debrox drops for clearing ear impaction, drop into ear and let soak -Take cefdinir 300 mg PO twice a day for 4 more days for pneumonia -Continue rest of medications as previously prescribed -Return to the ED or call EMS if symptoms return and/or worsen. Prescriptions/Referrals Prescriptions/Med Rec: New pramipexole 1.5 mg tablet 1.5 mg feeding tube TID 30 Days Qty: 90 0RF lansoprazole 30 mg Tablet,Disintegrat, Delay Rel 30 mg G-tube QDAY 30 Days Qty: 30 0RF Debrox 6.5 % drops 5 drp otic (ear) Q12H 4 Days Qty: 15 0RF pregabalin 20 mg/mL solution 300 mg PO BID Qty: 473 2RF Continued ipratropium-albuterol 0.5 mg-3 mg(2.5 mg base)/3 mL solution for nebulization 3 ml INHALATION Q6H PRN (Reason: sob) Patient Comments: INHALE 1 VIAL VIA NEBULIZER EVERY 6 HOURS FOR 30 DAYS NEEDED levothyroxine 25 mcg tablet 25 mcg PO QAM Patient Comments: TAKE 1 TABLET IN THE MORNING ON AN EMPTY STOMACH ONCE A DAY ORALLY 90 DAYS sertraline 50 mg tablet 50 mg PO QDAY lorazepam 1 mg tablet 0.5 mg PO Q12H Patient Comments: TAKE 1 TABLET BY MOUTH TWICE A DAY montelukast 10 mg tablet 10 mg PO QPM Patient Comments: TAKE 1 TABLET BY MOUTH EVERY DAY AT NIGHT Held losartan 25 mg tablet 25 mg PO QDAY Hold Instructions: Resume on 01/12/25. Hold until follow up with PCP as BP has been normal while in the hospital. Patient Comments: TAKE 1 TABLET BY MOUTH EVERY DAY Discontinued albuterol sulfate 90 mcg/actuation HFA aerosol inhaler 1 puff INHALATION Q4H PRN (Reason: sob) Patient Comments: INHALE 1 PUFF INTO THE LUNGS EVERY 4 HOURS NEEDED pramipexole 2.25 mg tablet extended release 24 hr 2.25 mg PO QPM Patient Comments: TAKE 1 TABLET BY MOUTH EVERY DAY albuterol sulfate 2.5 mg /3 mL (0.083 %) solution for nebulization 2.5 mg inhalation Q4H PRN (Reason: shortness of breath or wheezing) Qty: 90 0RF pregabalin 300 mg capsule 300 mg PO Q12H Referrals: Jackie Brennan FNP [Primary Care Provider] - Patient/Caregiver Discharge Instructions Other Discharge Diet Instructions: Jevity 1.5 via PEG tube by bolus syringe: 8 oz (1 container) five times per day. Flush with 90 ml water before and after feeds. Provides: 1775 kcal, 75 g prot, 900 ml free water, 1185 ml total volume. Give Levothyroxine 1 hr away from tube feed formula Education Materials: Bolus Tube Feeding, Understanding PEG Tube Feeding, Tube Feeding Flush Dc, Tube Feeding Meds Print Language: Telugu Stand Alone Forms: Mary Ellen Award Info., Patient Portal Info Letter Discharge Order Discharge Orders: Discharge (Routine); Ordered 01/06/25 Ordered By: Phyllis Muñoz Quality Discharge Quality Measures VTE prophylaxis Attestestation Attestation I attest that I was physically present for the evaluation, physical examination, lab and imaging review of the patient with the residents. I discussed the case with the residents and agree with the findings and plans of care as documented above. Dc Santos MD
--- NOTE | 2025-01-07 17:48 | PC.NURSE ---
Medical transport call with later transport time of 1999. Daughter Alis updated with new transportation time of 1999, Alis cordero with new time will be at home to receive patient at that time.
[2025-01-07] MEDS: DONEPEZIL HCL 5 MG TABLET 10 MG PO (19:39)
[2025-01-07] MEDS: SERTRALINE HCL 25 MG TABLET 50 MG PO (19:39)
[2025-01-07] MEDS: MELATONIN 3 MG TABLET 6 MG PO (19:39)
--- NOTE | 2025-01-07 19:47 | PC.NURSE ---
Pt was picked up by EMS to home. Called daughter Alis [phone] and daughter stated that she wants the 2100 medicine to be given to her mom.
--- NOTE | 2025-01-09 10:05 | PC.CM ---
I reviewed notes and I see patient was discharged on the and Yara is ready follow.
== END 2025-01-07 19:46 | disposition home health service (06) | DRG 146 ==
LOC: SERX 16:56 → SERHOLD 18:29 → S3NX 21:55 → S3SX 12-31 20:39
PROVIDERS: Specialist; Student in an Organized Health Care Education/Training Program; Admitting Provider Internal Medicine; Emergency Provider Family Medicine; PCP Registered Nurse Community Health; Visit Provider Student in an Organized Health Care Education/Training Program
PROC: 0DH63UZ Insertion of Feeding Device into Stomach, Percutaneous Approach (ICD-10-PCS; CPT 43246; principal; 2024-12-31 21:30)
DX: C01 Malignant neoplasm of base of tongue (principal); J18.9 Pneumonia, unspecified organism; J96.21 Acute and chronic respiratory failure with hypoxia; J44.0 Chronic obstructive pulmonary disease with (acute) lower respiratory infection; F03.93 Unspecified dementia, unspecified severity, with mood disturbance; R13.10 Dysphagia, unspecified; I10 Essential (primary) hypertension; F32.A Depression, unspecified; H91.90 Unspecified hearing loss, unspecified ear; R62.7 Adult failure to thrive; G89.29 Other chronic pain; E03.9 Hypothyroidism, unspecified; D50.0 Iron deficiency anemia secondary to blood loss (chronic); D63.8 Anemia in other chronic diseases classified elsewhere; Z68.21 Body mass index [BMI] 21.0-21.9, adult; G25.81 Restless legs syndrome; Z93.1 Gastrostomy status; Z79.899 Other long term (current) drug therapy; Z66 Do not resuscitate; Z79.890 Hormone replacement therapy; Z87.891 Personal history of nicotine dependence; Z85.118 Personal history of other malignant neoplasm of bronchus and lung; Z99.81 Dependence on supplemental oxygen; H35.30 Unspecified macular degeneration
CPT/HCPCS: 36415; 36430; 71045; 76857; 80048; 80053; 81001; 82728; 83540; 83550; 83605; 83735; 83880; 84100; 84145; 84484; 85014; 85018; 85025; 85046; 85610; 85730; 86850; 86900; 86901; 86923; 87040; 87077; 87081; 87186; 87205; 87400; 87634; 87811; 92526; 92610; 93005; 93225; 94640; 94667; 96361; 96365; 96366; 96367; 97163; 99285; A4649; A9270; J0456; J0696; J1200; J1650; J2250; J2470; J3010; J7030; J7050; J7120; P9016

== ENCOUNTER 2025-01-12 14:49 | Emergency (ER) | payer MEDICARE, MEDICAID, SELFPAY ==
--- NOTE | 2025-01-12 14:54 | PD.EDADULT ---
ED General RME/HPI General Chief complaint: Nausea/Vomiting/Diarrhea Stated complaint: NAUSEA AND VOMITTING Time Seen by Provider: 01/12/25 14:51 Arrival date/time: 01/12/25 14:49 CC: Coffee-ground emesis HPI patient presents to the ER via EMS who report daughter stating the patient has been coughing up blood, and there was coffee-ground emesis in her G-tube. The patient has a history of tongue cancer and is fed mostly through her G-tube. EMS reports stable vital signs and route. When asked the patient states she has no specific complaints is not sure what is going on and has no pain. Daughter arrives at 1610 stating clearly the patient was given her G-tube feeds today and has not been clearing it since this morning and had a small episode of vomiting G-tube feeds daughter noticed some brown emesis in both the vomitus and the G-tube after attempting to clear it. She confirms bowel movements last night typically she has night BMs. She is not on any stool softeners or other medications such as Abilify since discharge from the hospital for G-tube placement. Related Data Home Medications ?Medication ?Instructions ?Recorded ?Confirmed ipratropium 0.5 mg-albuterol 3 mg 3 ml inhalation Q6H PRN sob 12/05/21 12/30/24 (2.5 mg base)/3 mL nebulization soln levothyroxine 25 mcg tablet 25 mcg PO QAM 12/05/21 12/30/24 losartan 25 mg tablet 25 mg PO QDAY 12/05/21 12/30/24 Held on 01/04/25. Instructions: Resume on 01/12/25. Hold until follow up with PCP as BP has been normal while in the hospital. sertraline 50 mg tablet 50 mg PO QDAY 12/05/21 12/05/21 lorazepam 1 mg tablet 0.5 mg PO Q12H 12/30/24 12/30/24 montelukast 10 mg tablet 10 mg PO QPM 12/30/24 12/30/24 Previous Rx's ?Medication ?Instructions ?Recorded lansoprazole 30 mg delayed 30 mg G-tube QDAY 30 days #30 tabs 01/04/25 release,disintegrating tablet pramipexole 1.5 mg tablet 1.5 mg feeding tube TID 30 days 01/04/25 #90 tabs pregabalin 20 mg/mL oral solution 300 mg (15 mL) PO BID #473 mL 01/06/25 Allergies Allergy/AdvReac Type Severity Reaction Status Date / Time Penicillins Allergy Intermediate Rash Verified 12/30/24 13:14 Review of Systems Review of Systems Narrative Review of Systems: GEN: No fever, no chills, no weight loss EYES: No discharge, no visual changes, no pain HEENT: No ear pain, no congestion, no sore throat PULM: No shortness of breath, no cough, no congestion CV: No chest pain, no dyspnea on exertion, no palpitations GI: No nausea, no vomiting, no diarrhea, no pain, no constipation : No frequency, no urgency, no dysuria MUSC/SKEL: No joint pain, no back pain SKIN: No rash PSYCH: No hallucinations, no depression HEME/LYMPH: No easy bleeding or bruising tendencies NEURO: No weakness, no headache Past Medical History Past Medical History NEUROLOGIC: Positive Neurological Disorders and Dementia; Negative Seizures CARDIAC: Positive Cardiac Disorders; Negative Hypercholesterolemia, Congestive Heart Failure or Hypertension RESPIRATORY: Positive Chronic Obstructive Pulmonary Disease (COPD) GASTROINTESTINAL: Negative Gastrointestinal Disorders GENITOURINARY: Negative Genitourinary Disorders or Renal Disease MUSCULOSKELETAL: Negative Musculoskeletal Disorders ENT: Positive Blind and Deafness ENDOCRINE: Positive Endocrine Disorders and Hypothyroidism; Negative Diabetes Mellitus Type 1 or Diabetes Mellitus Type 2 HEMATOLOGIC: Negative Blood Disorders PSYCHO/SOCIAL: Positive Depression OTHER HISTORY: Positive Chemotherapy and Cancer; Negative Autoimmune Disease Surgical History SURGICAL: Positive Hysterectomy Social History SMOKING STATUS: Never smoker SUBSTANCE USE: does not use ED Exam Narrative Physical exam: [General: Frail, deconditioned, but not in any acute distress Head normocephalic HEENT: Patient keeps eyes closed. Mouth deformed tongue secondary to tongue cancer slurred speech as baseline. Nose: No rhinorrhea mouth pink dry membranes uvula is midline swallow symmetrical. No blood or coffee-ground emesis visible. All other subsystems of HEENT are within acceptable limits Neck is supple nontender Chest equal chest rise nontender to palpation Respiratory: Clear to auscultation no wheezes crackles or rubs CV: Rate rhythm is regular no murmurs rubs or clicks Abdomen is soft nontender no masses positive bowel sounds all 4 quadrants Back: No CVA tenderness no spinous process tenderness from cervical spine thoracic and lumbar spine Skin: Intact no petechiae rash induration ulceration or crepitus Extremities: Moving all extremity against resistance cap refill less than 2 seconds neurosensory intact Neuro: Awake alert oriented x1, self, Glascow coma 15 no focal deficits] Course Course Course Narrative: CT shows pneumonia, I feel this is the pneumonia that the patient was being treated for while admitted. I do not feel that this is a new pneumonia this is incomplete resolution on diagnostic imaging as we are 1 week post discharge. Quality Measures none Orders Category Date Time Status In and Out Catheter X1 Care 01/12/25 15:[address] abdomen pelvis wo con Stat Exams 01/12/25 16:09 Completed CBC Stat Lab 01/12/25 15:19 Completed CMP [Comprehensive Metabolic Panel] Stat Lab 01/12/25 15:19 Completed PT [Prothrombin Time with INR] Stat Lab 01/12/25 15:19 Completed PTT [Partial Thromboplastin Time] Stat Lab 01/12/25 15:19 Completed Urinalysis, C/S if Indicated Stat Lab 01/12/25 15:35 Completed Oxygen Delivery NOW RT 01/12/25 15:12 Active Vital Signs Vital signs: Vital Signs Temperature 99.2 F 01/12/25 15:04 Pulse Rate 79 01/12/25 15:04 Respiratory Rate 22 H 01/12/25 15:04 Blood Pressure 139/62 H 01/12/25 15:04 Pulse Oximetry (%) 77 L 01/12/25 15:04 Oxygen Delivery Method Room Air 01/12/25 15:04 Oxygen Flow Rate 6 01/12/25 15:[address] [facility] Patient data External records reviewed:: [facility] previous records and EMS form Clinical information provided by:: patient and EMS Social determinants that could affect healthcare access:: none Patient has the following chronic illnesses:: Hypertension hypothyroidism tongue cancer gastroenteritis How is presenting disease/condition affected by chronic disease/condition?: uneffected by Evaluation data The following diagnostics were reviewed and interpreted by me:: lab results Lab and/or radiology exams considered but not ordered:: CBC shows a mild leukocytosis 11.8 H&H of 8.4 and 26.7 with platelets at 464. Coags within acceptable limits Sodium 131 chloride of 97 gap of 6 glucose of 107 total bili of 0.2 no other transaminitis. Urine is negative for UTI CT shows left basilar pneumonia, G-tube is in place there is normal bowel gas pattern per as interpreted by me read by radiology. Interpretation Summary: Given interview with the daughter I suspect daughters overfilling the stomach with 400 mL of food and then another half at 100 mL of water and that caused the patient to potentially gag, and vomit a small amount as to the discoloration of the vomitus I am not sure the patient's H&H although anemic, is mildly improved from last visits. As the patient was just discharged from this hospital for pneumonia approximately 1 week ago. At this time comfortable discharging the patient home and advised the daughter to decrease the amount of G-tube feed volume to 400 mL. And then slowly advance as tolerating checking on a regular basis to make sure there is emptying of the stomach. The daughter who is very alert and conscious of the patient's condition and has agreed to do so. Medications Medications considered but not ordered:: None Medication administrations:: None Consultations Consultation(s) initiated? (list below): No Diagnosis Differential Diagnosis ED Complaint MDM: Vomited upper GI bleed lower GI bleed Most likely diagnosis given after review of the tests above:: Vomiting Admission Indicated Admission indicated?: not indicated Explain why admission is indicated or not indicated:: Stable for outpatient follow-up Admission Request Was there a request for admission?: No Disposition Plan Disposition Plan: Discharge Discharge Attestation Discharge Attestation: The patient and all family members were given an opportunity to ask questions and understood the discharge instructions. Discharge instructions specifically effects, indications for sooner follow up or return to the emergency department, and the expected course of current diagnosis. Patient condition: Stable Medical Decision Making Differential Diagnosis Differential Diagnosis: Vomited upper GI bleed lower GI bleed Lab Data 01/12/25 15:19 01/12/25 15:19 Labs: Lab Results 01/12/25 01/12/25 Range/Units 15:19 15:35 WBC 11.8 H (3.6-11.0) Thou/mm3 RBC 3.27 L (4.00-5.20) Miln/mm3 Hgb 8.4 L (12.0-16.0) g/dL Hct 26.7 L (36.0-46.0) % MCV 82 (80-100) fL MCH 25.7 (25.0-35.0) pg MCHC 31.5 (31.0-37.0) g/dl RDW Std Deviation 59.9 H (36.4-46.3) fL Plt Count 464 H D (140-440) Thou/mm3 Neut % (Auto) 78 (37-80) % Lymph % (Auto) 7 L (10-50) % [place] % (Auto) 10 (0-12) % Eos % (Auto) 2 (0-10) % Baso % (Auto) 1 (0-2.5) % Neut # (Auto) 9.2 H (1.8-7.7) Thou/mm3 Lymph # (Auto) 0.8 L (1.0-4.8) Thou/mm3 [place] # (Auto) 1.2 H (0.0-0.8) Thou/mm3 Eos # (Auto) 0.2 (0.0-0.5) Thou/mm3 Baso # (Auto) 0.1 (0.0-0.2) Thou/mm3 Immature Gran # (Auto) 0.36 H (0.00-0.00) Thou/mm3 Absolute Nucleated RBC 0.00 (0.00-0.00) Thou/mm3 Immature Gran % 3 H (0-0) % Nucleated RBC % 0 (0) /100 WBC PT 11.0 D (9.0-12.2) Seconds INR 1.0 (0.9-1.3) APTT 33.2 (22.0-36.0) Seconds Sodium 131 L (136-145) mMol/L Potassium 4.5 (3.4-5.1) mMol/L Chloride 97 L (98-107) mMol/L Carbon Dioxide 28.2 (20.0-31.0) mMol/L Anion Gap 6 L (7-16) BUN 21 (9-23) mg/dL Creatinine 0.8 (0.6-1.3) mg/dL Estim Creat Clear Calc 51.0 L (>60) mL/min eGFR > 60 (60 - ) See Note BUN/Creatinine Ratio 26 H (12-20) Ratio Glucose 107 H (74-106) mg/dL Calculated Osmolality 265 L (275-295) Calcium 8.4 (8.3-10.6) mg/dL Corrected Calcium 8.9 (8.5-10.1) mg/dL Total Bilirubin 0.2 L (0.3-1.2) mg/dL AST 23 (0-34) U/L ALT 23 (10-49) U/L Alkaline Phosphatase 95 (46-116) U/L Total Protein 6.2 (5.7-8.2) gm/dL Albumin 3.4 (3.4-4.8) gm/dL Globulin 2.8 (2.3-3.5) gm/dL Albumin/Globulin Ratio 1.2 (1.2-2.2) Ur Collection Type Catheter Urine Color Lt-Yellow (Lt Yel-Yel) Urine Clarity Clear (Clear/Hazy) Urine pH 7.0 (5.0-7.0) Ur Specific [place] 1.015 (1.001-1.035) Urine Protein Negative (Neg - Trace) Urine Glucose (UA) Negative (Negative) Urine Ketones Negative (Negative) Urine Blood Negative (Negative) Urine Nitrite Negative (Negative) Urine Bilirubin Negative (Negative) Urine Urobilinogen (Auto) Negative (0.0-1.0) mg/dL Ur Leukocyte Esterase Negative (Negative) Urine RBC 3 (0-3) /hpf Urine WBC 1 (0-5) /hpf Ur Squamous Epith Cells < 1 (0-5) /hpf Urine Bacteria None (None) Ur Culture Indicated? Not Indicated Discharge Plan Plan Patient Disposition: HOME (Self Care) Patient condition on transfer: Stable Prescriptions/Referrals Prescriptions/Med Rec: No Action ipratropium-albuterol 0.5 mg-3 mg(2.5 mg base)/3 mL solution for nebulization 3 ml INHALATION Q6H PRN (Reason: sob) Patient Comments: INHALE 1 VIAL VIA NEBULIZER EVERY 6 HOURS FOR 30 DAYS NEEDED levothyroxine 25 mcg tablet 25 mcg PO QAM Patient Comments: TAKE 1 TABLET IN THE MORNING ON AN EMPTY STOMACH ONCE A DAY ORALLY 90 DAYS losartan 25 mg tablet 25 mg PO QDAY Patient Comments: TAKE 1 TABLET BY MOUTH EVERY DAY sertraline 50 mg tablet 50 mg PO QDAY lorazepam 1 mg tablet 0.5 mg PO Q12H Patient Comments: TAKE 1 TABLET BY MOUTH TWICE A DAY montelukast 10 mg tablet 10 mg PO QPM Patient Comments: TAKE 1 TABLET BY MOUTH EVERY DAY AT NIGHT pramipexole 1.5 mg tablet 1.5 mg feeding tube TID 30 Days Qty: 90 0RF lansoprazole 30 mg Tablet,Disintegrat, Delay Rel 30 mg G-tube QDAY 30 Days Qty: 30 0RF pregabalin 20 mg/mL solution 300 mg PO BID Qty: 473 2RF Referrals: Jackie Brennan FNP [Primary Care Provider] - In 1 week Problem List Clinical Impression: Vomiting Patient/Caregiver Discharge Instructions Education Materials: ED Vomiting and Diarrhea ... Print Language: Turkish Stand Alone Forms: Mary Ellen Award Info., Work/School Release, Patient Portal Info Letter MIRNA/BOARD CERTIFIED BEHAVIORAL ANALYST Supervising Physician MIRNA/BOARD CERTIFIED BEHAVIORAL ANALYST Supervising Physician: Sundeep Mccartney ENP
[2025-01-12 15:04] VITALS: BP 139/62; PULSE 73; PULSE 79; RESP 22; TEMP 37.3; O2SAT 77; O2SAT 98
[2025-01-12 15:09] VITALS: BMI 27.4
[2025-01-12 15:13] VITALS: PULSE 74; RESP 22; RESP 77; O2SAT 93
[2025-01-12 15:26] LABS: Basophils # (Auto) 0.1 Thou/mm3 (0.0-0.2); Basophils % (Auto) 1 % (0-2.5); Eosinophils # (Auto) 0.2 Thou/mm3 (0.0-0.5); Eosinophils % (Auto) 2 % (0-10); Hematocrit 26.7 % (36.0-46.0); Immature Granulocytes % (Auto) 3 % (0-0); Immature Granulocytes Auto 0.36 Thou/mm3 (0.00-0.00); Lymphocytes # (Auto) 0.8 Thou/mm3 (1.0-4.8); Lymphocytes % (Auto) 7 % (10-50); Mean Corpuscular HGB Conc 31.5 g/dl (31.0-37.0); Mean Corpuscular Hemoglobin 25.7 pg (25.0-35.0); Mean Corpuscular Volume 82 fL (80-100); Monocytes # (Auto) 1.2 Thou/mm3 (0.0-0.8); Monocytes % (Auto) 10 % (0-12); Neutrophils # (Auto) 9.2 Thou/mm3 (1.8-7.7); Neutrophils % (Auto) 78 % (37-80); Nucleated Red Blood Cell % 0 /100 WBC (0); Platelet Count 464 Thou/mm3 (140-440); RDW Standard Deviation 59.9 fL (36.4-46.3); Red Blood Count 3.27 Miln/mm3 (4.00-5.20); White Blood Count 11.8 Thou/mm3 (3.6-11.0)
[2025-01-12 15:49] LABS: Hemoglobin 8.4 g/dL (12.0-16.0)
[2025-01-12 15:50] LABS: Partial Thromboplastin Time 33.2 Seconds (22.0-36.0)
[2025-01-12 15:53] LABS: Collection Type, Urine Catheter
[2025-01-12 15:53] LABS: Alanine Aminotransferase 23 U/L (10-49); Albumin, Serum 3.4 gm/dL (3.4-4.8); Albumin/Globulin Ratio 1.2 (1.2-2.2); Alkaline Phosphatase 95 U/L (46-116); Anion Gap 6 (7-16); Aspartate Amino Transferase 23 U/L (0-34); BUN/Creatinine Ratio 26 Ratio (12-20); Bilirubin,Total 0.2 mg/dL (0.3-1.2); Blood Urea Nitrogen 21 mg/dL (9-23); Calcium 8.4 mg/dL (8.3-10.6); Calcium (Corrected) 8.9 mg/dL (8.5-10.1); Carbon Dioxide 28.2 mMol/L (20.0-31.0); Chloride 97 mMol/L (98-107); Creatinine (Component) 0.8 mg/dL (0.6-1.3); Globulin 2.8 gm/dL (2.3-3.5); Glucose 107 mg/dL (74-106); Osmolality,Calculated 265 (275-295); Potassium 4.5 mMol/L (3.4-5.1); Sodium 131 mMol/L (136-145); Total Protein 6.2 gm/dL (5.7-8.2); eGFR > 60 See Note
[2025-01-12 16:09] LABS: Bilirubin,Urine Negative (Negative); Blood,Urine Negative (Negative); Clarity,Urine Clear (Clear/Hazy); Color,Urine Lt-Yellow (Lt Yel-Yel); Culture Indicated,Urine Not Indicated; Glucose, Urine Negative (Negative); Ketones,Urine Negative (Negative); Leukocyte Esterase,Urine Negative (Negative); Nitrite,Urine Negative (Negative); Protein,Urine Negative (Neg - Trace); RBC,Urine 3 /hpf (0-3); Specific Gravity,Urine 1.015 (1.001-1.035); Squamous Epithelial Cell,Urine < 1 /hpf (0-5); Urobilinogen,Urine Negative mg/dL (0.0-1.0); WBC,Urine 1 /hpf (0-5)
--- NOTE | 2025-01-12 16:09 | XR_ITS ---
Examination: CT abdomen and pelvis without contrast. Coronal 3-D reconstructions. Sagittal 2-D reconstructions. Date and time of exam:January 12, 2025 1644 hours INDICATIONS: Nausea vomiting with gastrostomy tube feedings today CTDI: vol (mGy): 6.98 DLP: (mGycm): 399 Technique: Axial images of the abdomen have been obtained, 3 mm slice thickness Intravenous contrast material has not been administered. Low dose protocols were performed. One or more of the following dose reduction techniques were used; automated exposure control, adjustment of the mA and/or KV according to patient size, use of iterative reconstruction technique. Findings: Significant pneumonia left base Milder pneumonia right base No focal liver lesions Gastrostomy tube satisfactory position Spleen is not enlarged No pancreatic mass Soft calcifications in the renal pyramids no hydronephrosis Aortic calcification no aneurysmal dilatation No bowel obstruction Normal appendix Colonic diverticulosis Bladder intact Abundant stool in the rectum Severe osteopenia moderate disc narrowing L4-L5 IMPRESSION: Bibasilar pneumonia, significant left base Gastrostomy tube satisfactory position Normal appendix Negative for bowel obstruction
[2025-01-12 17:13] VITALS: BP 132/55; PULSE 72; RESP 22; TEMP 36.6; O2SAT 91
[2025-01-12 18:22] VITALS: BP 126/60; PULSE 70; RESP 20; TEMP 37.2; O2SAT 90
[2025-01-12 19:36] VITALS: BP 134/67; PULSE 74; RESP 18; TEMP 36.6; O2SAT 90
--- NOTE | 2025-01-12 20:46 | PC.NURSE ---
REPORT GIVEN TO EMS PRIOR TO TRANSPORT.
== END 2025-01-12 20:54 | disposition home or self-care (01) ==
PROVIDERS: Registered Nurse General Practice; Emergency Provider Emergency Medicine; PCP Registered Nurse Community Health
DX: R11.2 Nausea with vomiting, unspecified (principal); Z93.1 Gastrostomy status; Z85.810 Personal history of malignant neoplasm of tongue
CPT/HCPCS: 51701; 36415; 74176; 80053; 81001; 85025; 85610; 85730; 99284

== ENCOUNTER 2025-01-19 05:13 | Inpatient (IN) | payer MEDICARE, BC, MEDICAID, SELFPAY ==
[2025-01-19] VITALS (15 sets, daily range): BP systolic 118–171; BP diastolic 54–85; PULSE 73–115; RESP 20–42; TEMP 36.1–39.3; O2SAT 85–100; BMI 230.0; BMI 21.2
--- NOTE | 2025-01-19 05:49 | XR_ITS ---
Examination: AP chest single view Technique one AP portable semiupright chest single view Exam date and time: January 19, 2025 0613 hrs. Comparison December 30, 2024 Indications: Shortness of breath today. Findings: Significant pneumonia perihilar and bibasilar No significant cardiac enlargement Moderate vascular congestion Prominent osteopenia Impression: Significant bilateral pneumonia
--- NOTE | 2025-01-19 05:49 | EKG_ITS ---
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
[2025-01-19 06:10] LABS: Lactate (Lactic Acid) 1.1 mMol/L (0.4-2.0)
[2025-01-19] MEDS: SODIUM CHLORIDE 0.9% 1000 ML 1,000 ML 999 ML IV (06:17)
[2025-01-19] MEDS: cefTRIAXone/D5w 1gm IV premix 1 GM/50 ML BAG IV (06:18)
[2025-01-19] MEDS: MethylPREDNISolone SOD SUCC 62.5 MG/ML 2ML VIAL 125 MG IVP (06:18)
[2025-01-19 06:19] LABS: Basophils # (Auto) 0.1 Thou/mm3 (0.0-0.2); Basophils % (Auto) 0 % (0-2.5); Eosinophils % (Auto) 0 % (0-10); Hematocrit 30.4 % (36.0-46.0); Hemoglobin 9.5 g/dL (12.0-16.0); Immature Granulocytes % (Auto) 1 % (0-0); Immature Granulocytes Auto 0.31 Thou/mm3 (0.00-0.00); Lymphocytes # (Auto) 0.5 Thou/mm3 (1.0-4.8); Lymphocytes % (Auto) 2 % (10-50); Mean Corpuscular HGB Conc 31.3 g/dl (31.0-37.0); Mean Corpuscular Hemoglobin 25.7 pg (25.0-35.0); Mean Corpuscular Volume 82 fL (80-100); Monocytes # (Auto) 1.4 Thou/mm3 (0.0-0.8); Monocytes % (Auto) 5 % (0-12); Neutrophils % (Auto) 92 % (37-80); Nucleated Red Blood Cell % 0 /100 WBC (0); Platelet Count 488 Thou/mm3 (140-440); RDW Standard Deviation 61.2 fL (36.4-46.3); Red Blood Count 3.69 Miln/mm3 (4.00-5.20); White Blood Count 27.2 Thou/mm3 (3.6-11.0)
--- NOTE | 2025-01-19 06:31 | PC.NURSE ---
pt now on bipap
[2025-01-19 06:36] LABS: D-Dimer 3310 ng/mL (<600)
[2025-01-19 06:37] LABS: Collection Type, Urine Clean Catch; Squamous Epithelial Cell,Urine 0 /hpf (0-5)
[2025-01-19 06:38] LABS: Sed Rate (ESR) 49 mm/hr (0-30)
[2025-01-19 06:45] LABS: Alanine Aminotransferase 12 U/L (10-49); Albumin, Serum 4.1 gm/dL (3.4-4.8); Albumin/Globulin Ratio 1.2 (1.2-2.2); Alkaline Phosphatase 101 U/L (46-116); Anion Gap 7 (7-16); Aspartate Amino Transferase 22 U/L (0-34); BUN/Creatinine Ratio 25 Ratio (12-20); Bilirubin,Total 0.4 mg/dL (0.3-1.2); Blood Urea Nitrogen 20 mg/dL (9-23); C-Reactive Protein 19.9 mg/dL (0.0-0.9); Chloride 92 mMol/L (98-107); Creatinine (Component) 0.8 mg/dL (0.6-1.3); Globulin 3.3 gm/dL (2.3-3.5); Glucose 123 mg/dL (74-106); Magnesium 1.9 mg/dL (1.6-2.6); Osmolality,Calculated 256 (275-295); Potassium 4.6 mMol/L (3.4-5.1); Procalcitonin 0.32 ng/ml (0.0-0.49); Sodium 126 mMol/L (136-145); Thyroid Stimulating Hormone 2.89 uIU/mL (0.55-4.78); Total Protein 7.4 gm/dL (5.7-8.2); eGFR > 60 See Note
[2025-01-19 06:46] LABS: Troponin I 0.046 ng/mL (0.0-0.045)
[2025-01-19 06:48] LABS: Bacteria,Urine Rare; Bilirubin,Urine Negative (Negative); Blood,Urine Negative (Negative); Clarity,Urine Clear (Clear/Hazy); Color,Urine Yellow (Lt Yel-Yel); Culture Indicated,Urine Not Indicated; Glucose, Urine Negative (Negative); Ketones,Urine Negative (Negative); Leukocyte Esterase,Urine Negative (Negative); Nitrite,Urine Negative (Negative); PH,Urine 6.5 (5.0-7.0); Protein,Urine 1+ (Neg - Trace); RBC,Urine 3 /hpf (0-3); Specific Gravity,Urine 1.019 (1.001-1.035); Urobilinogen,Urine Negative mg/dL (0.0-1.0); WBC,Urine 5 /hpf (0-5)
[2025-01-19 06:55] LABS: B-Type Natriuretic Peptide 433 pg/mL (0-100)
[2025-01-19] MEDS: ACETAMINOPHEN IVPB 1,000 MG/100 ML VIAL 250 MG IV (07:08)
--- NOTE | 2025-01-19 07:26 | XR_ITS ---
Examination: CTA chest with intravenous contrast 2-D reconstructions 3-D reconstructions, vascular Date and time of exam: January 19, 2025 1426 hrs. Indications: Onset chest pain shortness of breath today CTDI: vol (mGy) 18.9 DLP: (mGycm) 431 Technique: Multiple axial sections of the thorax have been obtained. 3 mm slice thickness, from below the hemidiaphragms to above the apices of the lungs. Mediastinal and lung density settings have been obtained. 2-D sagittal and coronal reconstructions. 3-D angiographic renderings, 3-D volume renderings, 3D post processing, vascular maximum intensity projections obtained. Contrast administered is 100 cc Isovue-[id number]. Low dose protocols were performed. One or more of the following dose reduction techniques were used; automated exposure control, adjustment of the mA and/or KV according to patient size, use of iterative reconstruction technique. Findings: Thoracic aortic calcification no aneurysmal dilatation No pulmonary artery emboli COPD with multiple areas of airspace destruction Septal edema throughout the lungs guadarrama Bibasilar pneumonia more prominent left base Liver mildly irregular contour No hydronephrosis No pancreatic mass Impression: COPD Septal pulmonary edema Bibasilar pneumonia Negative for pulmonary artery emboli
--- NOTE | 2025-01-19 07:33 | EDNOTE_ITS ---
ED SOB =RME/HPI General Chief Complaint: Shortness of Breath/Dyspnea Stated Complaint: SOB Time Seen by Provider: 01/19/25 05:22 Arrival date/time: 01/19/25 05:13 RME / HPI RME / HPI Narrative: DR. KASPER MAIN ED EVALUATION: 89 year old female presents to the Emergency Department [facility] with complaint of shortness of breath, onset 30 minutes prior to EMS arrival on scene. 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 Last admitted for anemia, discharged on 01/07/25. Social Hx: No tobacco, alcohol, or substance use. Related Data Home Medications ?Medication ?Instructions ?Recorded ?Confirmed ipratropium 0.5 mg-albuterol 3 mg 3 ml inhalation Q6H PRN sob 12/05/21 01/19/25 (2.5 mg base)/3 mL nebulization soln levothyroxine 25 mcg tablet 25 mcg PO QAM 12/05/2106/07 losartan 25 mg tablet 25 mg PO QDAY 12/05/2101/19 sertraline 50 mg tablet 50 mg PO QDAY 12/05/2101/19 Held on 01/19/25. Instructions: Doctor's Order lorazepam 1 mg tablet 0.5 mg feeding tube Q12H 01/19/25 montelukast 10 mg tablet 10 mg PO QPM 12/30/24 brexpiprazole 1 mg tablet (Rexulti) 1 mg feeding tube QAM 01/19/25 01/19/25 docusate sodium 50 mg/5 mL oral 200 mg feeding tube QP M 01/19/25 01/19/25 liquid donepezil 10 mg disintegrating 10 mg feeding tube QPM 01/19/25 01/19/25 tablet melatonin 5 mg tablet 5 mg PO HS 01/19/25 01/19/25 Previous Rx's ?Medication ?Instructions ?Recorded lansoprazole 30 mg delayed 30 mg G-tube QDAY 30 days # 30 tabs 01/04/25 release,disintegrating tablet pramipexole 1.5 mg tablet 1.5 mg feeding tube TID 30 d ays 01/04/25 #90 tabs pregabalin 20 mg/mL oral solution 300 mg (15 mL) PO BI D #473 mL 01/06/25 Allergies Allergy/AdvReac Type Severity Reaction Status Date / Time Penicillins Allergy Intermediate Rash Verified 12/30/24 13:14 Review of Systems Review of Systems Systems Reviewed: All systems reviewed, normal except as documented Past Medical History Past Medical History NEUROLOGIC: Positive Neurological Disorders and Dementia RESPIRATORY: Positive Chronic Obstructive Pulmonary Disease (COPD) and Asthma (copd) ENT: Positive Blind and Deafness ENDOCRINE: Positive Endocrine Disorders and Hypothyroidism PSYCHO/SOCIAL: Positive Depression OTHER HISTORY: Positive Chemotherapy and Cancer (tongue cancer left side) Surgical History SURGICAL: Positive Hysterectomy Social History SMOKING STATUS: Unknown if ever smoked SUBSTANCE USE: does not use ALCOHOL: Never ED Exam Narrative Physical exam: GENERAL APPEARANCE: alert and oriented x 4, well-developed, well-nourished, tachypneic VITALS: All vitals were reviewed and the pulse ox is 100% on room air, which is normal according to my interpretation. HEENT: Normocephalic, atraumatic; pupils equal, round, reactive to light; EOMI; mucous membranes pink, moist; oropharynx clear NECK: Supple LUNGS: tachypneic; coarse breath sounds bilaterally; no wheezes, no rales, no rhonchi HEART: Tachycardia, regular rhythm; normal S1, S2; no murmurs ABDOMEN: non distended; normal BS; soft, no tenderness, no guarding, no rebound; no masses, no organomegaly, no hernia BACK: no CVA tenderness EXTREMITIES: atraumatic; no edema NEUROLOGIC: awake; alert and oriented x4; cranial nerves II-XII grossly intact; no focal sensory or motor deficits PSYCHIATRIC: appropriate mood and affect SKIN: warm, dry, normal color; no rashes Course Quality Measures none Orders Category Date Time Status Bedside COVID-19 Antigen Test NOW Care 01/19/25 05:47 Active Bedside Influenza A&B Antigen Test NOW Care 01/19/25 05:[address] Screening NOW Care 01/19/25 07:26 Active EKG (ED ONLY) *Do not use* NOW Care 01/19/25 05:49 Completed [place] to [place] Routine Care 01/19/25 05:47 Ordered [place] to [place] Routine Care 01/19/25 06:29 Ordered Saline [Insert IV] NOW Care 01/19/25 05:47 Active Straight [In and Out Catheter] X1 Care 01/19/25 05:[address] angio chest Stat Exams 01/19/25 07:26 Ordered EKG (ED Only) Stat Exams 01/19/25 05:49 Ordered XR chest 1V portable Stat Exams 01/19/25 05:49 Completed ABG [Arterial Blood Gas] Stat Lab 01/19/25 05:50 Ordered ABG [Arterial Blood Gas] Stat Lab 01/19/25 08:35 Ordered BNP [B-Type Natriuretic Peptide] Stat Lab 01/19/25 06:01 Completed Blood Culture (Lab) Stat Lab 01/19/25 06:04 Received CBC Stat Lab 01/19/25 06:01 Completed CMP [Comprehensive Metabolic Panel] Stat Lab 01/19/25 06:01 Completed CRP [C-Reactive Protein] Stat Lab 01/19/25 06:01 Completed D-Dimer Stat Lab 01/19/25 06:01 Completed ESR [Sed Rate (ESR)] Stat Lab 01/19/25 06:01 Completed Free T4 (Free Thyroxine) Stat Lab 01/19/25 06:01 Completed Lactate (Lactic Acid) Stat Lab 01/19/25 06:01 Completed Magnesium Stat Lab 01/19/25 06:01 Completed Procalcitonin Stat Lab 01/19/25 06:01 Completed RSV [Respiratory Syncytial Virus Ag] Stat Lab 01/19/25 10:24 Received TSH [Thyroid Stimulating Hormone] Stat Lab 01/19/25 06:01 Completed Troponin I Stat Lab 01/19/25 06:01 Completed UA, C/S IF [Urinalysis, C/S if Indicated] Stat Lab 01/19/25 06:25 Completed VBG [Venous Blood Gas] Stat Lab 01/19/25 09:41 Completed Acetaminophen Ivpb [Ofirmev Inj] Med 01/19/25 06:55 Discontinued 1,000 mg in 100 ml IV X1 Azithromycin Inj [Zithromax Inj] 500 mg Med 01/19/25 07:28 Discontinued Sodium Chloride 0.9% 250 ml [Ns] 250 ml IV X1 MethylPREDNISolone.* [SoluMEDROL Inj] Med 01/19/25 05:47 Discontinued 125 mg IVP X1 ONE Sodium Chloride 0.9% 1000 ml [Ns] 1,000 ml Med 01/19/25 05:47 Discontinued IV 999 mls/hr cefTRIAXone/D5w 1gm IV premix [Rocephin/D5w 1gm IV Med 01/19/25 05:47 Discontinued premix] 1 gm in 50 ml IV X1 BiPAP / CPAP NOW RT 01/19/25 05:49 Active Vital Signs Vital signs: Vital Signs Temperature 102.8 F H 01/19/25 05:31 Pulse Rate 102 H 01/19/25 05:31 Respiratory Rate 36 H 01/19/25 05:31 Blood Pressure 171/85 H 01/19/25 05:31 Pulse Oximetry (%) 91 L 01/19/25 05:31 Oxygen Delivery Method Oxy Mask 01/19/25 05:31 Shortness of Breath / Dyspnea MDM Narrative MDM Narrative:: I, Lakia Al, guillaume scribing for and in the presence of Dr. Kasper. Patient data External records reviewed:: 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 Last admitted for anemia, discharged on 01/07/25. How is presenting disease/condition affected by chronic disease/condition?: exacerbated by Evaluation data The following diagnostics were reviewed and interpreted by me:: lab results and radiology exam(s) Lab and/or radiology exams considered but not ordered:: none Interpretation Summary: Procedure(s): XR chest 1V portable Accession Number(s): [id number] cc: Tony Pinto MD; Jackie Brennan; Arnoldo Rowe MD~ Examination: AP chest single view Technique one AP portable semiupright chest single view Exam date and time: January 19, 2025 0613 hrs. Comparison December 30, 2024 Indications: Shortness of breath today. Findings: Significant pneumonia perihilar and bibasilar No significant cardiac enlargement Moderate vascular congestion Prominent osteopenia Impression: Significant bilateral pneumonia Dictated By: Arnoldo Rowe MD Medications / Prescriptions Medications or Prescriptions considered but not ordered:: none Medication administrations:: Medication Administration History Acetaminophen (Acetaminophen 325 Mg Tablet) 650 mg PO Q6H PRN PRN Reason: PAIN OR FEVER > 101 Stop: 02/18/25 09:21 Albuterol/Ipratropium (Albuterol/Ipratropium (Duoneb) Rt Usha 3 Ml Nebu) 3 ml INH Q6HRRT JOSE Stop: 02/18/25 12:59 Heparin Sodium (Porcine) (Heparin Sod Inj 5000 Unit/Ml Vial) 5,000 unit SC Q8HR JOSE Stop: 02/02/25 09:29 Last Admin: 01/19/25 10:45 Dose: 5,000 unit Documented By: Co-signed By: JEB Levofloxacin/Dextrose (Levaquin Ivpb) 750 mg in 150 mls @ 100 mls/hr IV QDAY [facility] Stop: 01/27/25 08:59 Ondansetron HCl (Ondansetron Inj 2 Mg/Ml Inj 2 Ml) 4 mg IV Q6H PRN; Protocol PRN Reason: NAUSEA OR VOMITING Stop: 02/18/25 09:21 Pantoprazole Sodium (Pantoprazole Inj 40 Mg Vial) 40 mg IVP QDAY JOSE Stop: 02/19/25 08:59 Sennosides (Senna Tablet) 1 tab PO QDAY JOSE; Protocol Stop: 02/19/25 08:59 Discontinued Medications Ceftriaxone Sodium/Dextrose (Rocephin/D5w 1gm Iv Premix) 1 gm in 50 mls @ 100 mls/hr IV X1 ONE Stop: 01/19/25 06:16 Last Infusion: 01/19/25 06:59 Dose: Infused Documented By: Admin: 01/19/25 06:18 Dose: 100 mls/hr Documented By: JIMMIE Sodium Chloride (Ns) 1,000 mls @ 999 mls/hr IV .Q1H1M ONE Stop: 01/19/25 06:47 Last Infusion: 01/19/25 08:00 Dose: Infused Documented By: Admin: 01/19/25 06:17 Dose: 999 mls/hr Documented By: JIMMIE Acetaminophen (Ofirmev Inj) 1,000 mg in 100 mls @ 250 mls/hr IV X1 ONE Stop: 01/19/25 07:18 Last Infusion: 01/19/25 08:03 Dose: Infused Documented By: Admin: 01/19/25 07:08 Dose: 250 mls/hr Documented By: JIMMIE Azithromycin 500 mg/ Sodium (Chloride) 250 mls @ 250 mls/hr IV X1 ONE Stop: 01/19/25 08:27 Last Admin: 01/19/25 08:36 Dose: 250 mls/hr Documented By: Metronidazole (Flagyl 500 Mg Iv) 500 mg in 100 mls @ 200 mls/hr IV Q8HR JOSE Stop: 01/26/25 09:36 Ciprofloxacin/Dextrose (Cipro Ivpb) 200 mg in 100 mls @ 100 mls/hr IV Q12HR JOSE Stop: 01/26/25 09:39 Ciprofloxacin/Dextrose (Cipro Ivpb) 400 mg in 200 mls @ 200 mls/hr IV Q12HR JOSE; Protocol Stop: 01/27/25 08:59 Levofloxacin/Dextrose (Levaquin Ivpb) 750 mg in 150 mls @ 100 mls/hr IV QDAY JOSE Stop: 01/26/25 09:59 Methylprednisolone Sodium Succinate (Methylprednisolone Sod Succ 62.5 Mg/Ml 2ml Vial) 125 mg IVP X1 ONE Stop: 01/19/25 05:48 Last Admin: 01/19/25 06:18 Dose: 125 mg Documented By: JIMMIE Sodium Chloride (Sodium Chloride Rt 10% 15 Ml Nebu) 5 ml INH X1 ONE Stop: 01/19/25 09:23 see above Consultations Consultation(s) initiated? (list below): Yes Consultation #1 (Physician, Specialty, Details): Discussed test HPI, PMHx, lab, radiology results and/or management with hospitalist. Will admit for further evaluation and management. Accepts patient for admission. Time: 09:20 Diagnosis Shortness of Breath Differential Diagnosis: acute exacerbation of chronic obstructive airways disease, congestive heart failure, community acquired pneumonia, asthma with exacerbation and pulmonary embolism Most likely diagnosis given after review of the tests above:: Pneumonia Sepsis Admission Indicated Admission indicated?: indicated Admission Request Was there a request for admission?: Yes Admission Attestation Admission request attestation: Discussed case with [] from Hospitalist service regarding admission. Discussed patients ED course, exam findings, labs, and radiology results. The Hospitalist [agrees,declines] to accept the patient for admission. Disposition Plan Disposition Plan: Admit Discharge Plan Plan Patient Disposition: Admit Acute Care w/in Hospital Problem List Clinical Impression: Pneumonia, Sepsis
--- NOTE | 2025-01-19 08:00 | PC.SS ---
SS arranged transportation for patient to [place] via [facility] for 190.
[2025-01-19] MEDS: AZITHROMYCIN INJ 500 MG in SODIUM CHLORIDE 0.9% 250 ML 250 ML 250 MG IV (08:36)
--- NOTE | 2025-01-19 09:06 | PC.NURSE ---
RESIDENTS AT BEDSIDE TO SEE PT AND SPEAK WITH FAMILY
[2025-01-19 09:46] LABS: Base Excess, Venous 0 (-3-3); O2 Saturation, Venous 83 % (96-97); PCO2, Venous 45 mmHg (36-56); PO2, Venous 50 mmHg (15-58); pH, Venous 7.37 (7.33-7.66)
[2025-01-19 10:22] LABS: Troponin I 0.049 ng/mL (0.0-0.045)
[2025-01-19] MEDS: HEPARIN SOD INJ 5000 UNIT/ML VIAL SC ×3 (10:45→21:42)
--- NOTE | 2025-01-19 10:52 | PC.SS ---
Initial assessment: this is 89 year old female pending admission to the hospital. Patient's information was received by daughter, Alis at bed side. Alis confirmed the patient's demographic information. Alis identified herself as the patient's alternate medical surrogate decision maker. Patient resides at home with daughter Alis and granddaughter, Ana Maria. Patient is a maximum assist and requires total assistance with completing her ADL's. At home, the patient has access to wheelchair, hospital bed and home oxygen. Patient utilizes 3L of home oxygen from [facility] [place]. The patient followed by provider, Jackie Brennan for primary care. Patient is established with [facility] for PT and peg tube management. Patient is to return home upon discharge, the daughter is requesting to continue with [facility]. Patient will need ambulance transport arranged upon her return home. D/c plan: [facility] Next of kin: daughterAils
--- NOTE | 2025-01-19 11:05 | PC.NURSE ---
PT REPOSITIONED IN BED AT THIS TIME. PT CLEANED UP AND NEW BRIEF APPLIED. NO OPEN WOUNDS NOTED.
[2025-01-19 11:12] LABS: Respiratory Syncytial Virus Ag Negative (Negative)
--- NOTE | 2025-01-19 11:12 | PC.NURSE ---
REPORT GIVEN TO STU ON TELE FLOOR PT TO GO TO ROOM 356
[2025-01-19 11:14] LABS: Base Excess 1 (-3-3); HCO3 25 mEq/L (20-26); Inspired Oxygen, FIO2 100 %; O2 Saturation 95 % (91-98); PCO2 42 mmHg (32.0-48.0); PO2 73 mmHg (83-108)
[2025-01-19 11:20] LABS: Allen Test Performed/OK; Puncture Site Right Brachial
[2025-01-19] MEDS: ALBUTEROL/IPRATROPIUM (Duoneb) RT SOL 3 ML NEBU INH ×2 (14:00→18:37)
--- NOTE | 2025-01-19 14:22 | PC.NURSE ---
pt to [facility] via [facility] with RN, Resident and ambulance personnel
--- NOTE | 2025-01-19 15:15 | ESHP_ITS ---
<Statement entered by Jackelyn Robles MD - 01/28/25 07:25> I reviewed above note and agree with findings and plans. I have also personally examined the patient with medicine team and went over assessment and plan with medical team including audit intern and resident physician. 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 History was taken from the daughter, who stated she was on her usual state until yesterday, when she first noted that patient has been grasping the air, and has increased work of breathing. Daughter is taking care of her, when she checked her vitals oxygen saturation was low 70s despite being on 4 L of oxygen, prompting her to bring her to ED for further evaluation. On presentation patient was hypertensive, tachypneic, Labs revealed leukocytosis, elevated CRP, BNP, mildly elevated troponin. Chest x-ray revealed significant pneumonia. . Patient was admitted to hospital for acute on chronic hypoxic respiratory failure secondary due to PNA treatment and management. We will continue antibiotic treatment for HAP/community-acquired pneumonia with levofloxacin , given the recent hospital discharge, support with oxygen as needed, trend troponin, will follow-up with echo. Will follow-up with blood cultures/sputum culture. I personally saw and examined the patient and discussed the assessment and plan with the entire medicine team, including my attending Dr. Robles, Leonora Frost M.D. PGY-2 Disclaimer: Despite multiple revisions, due to the dictation software being used, the document bellow may not be free of grammatical errors including phonetic/typographic errors. However, this does not deter from our commitment to providing health care in the patient's best interest in mind. Documentation for date of: 01/19/25 HPI History of Present Illness History of present illness: CC: SOB Patient is an 89-year-old female with a past medical history of COPD on 4 L of oxygen at home, hypertension squamous cell of the tongue s/p radiation on Keytruda, hearing loss (good ear right side), and PEG tube. Patient presented to the emergency room with a chief complaint of shortness of breath and increased work of breathing despite being on 4 L of oxygen from home. Daughter at bedside, Alis, patient's daughter, at bedside provided most of the past medical history. Patient behalf began to have increased work of breathing and an increased cough on 01/18/2025. Patient also had 1 episode of emesis overnight possible aspiration. Patient stated that SpO2 dropped to 66% despite being on 4 L. Denied any recent sick contacts including flu or COVID. Patient did have a recent hospitalization in December 2024 for failure to thrive and was started on a PEG tube. Admitted on 01/19/2025 for Sepsis secondary to pneumonia and acute respiratory failure. ER Course: Vitals: BP 171/85, HR 102, RR 36, T 102.8, SpO 91% on oxy mask WB 12.6 CRP 19.9 BNP 433 TSH 2.89 Troponin 0.046, 0.049 0.026 Cxr (01/19/2025): Significant pneumonia perihilar and bibasilar, no significant cardiac enlargement, Moderate vascular congestion Medication 1 bolus, Steriods X1, Ceftriaxone and Azithromycin, started patinet on bipap PMH: same as noted above Past Surgical History: PEG tube Home Medication: Brexpiprazole 1 mg Donepezil-difficult taking medication as its under the tongue Ipratoopium-Albuterol Lansoprazole Levothyroxine Losartan 25 mg Qday Melatonin 5 mg HS Pramipexole Pregabalin-holding Sertraline restarted HS Social History: PMH Smoker >20+ Denied Alcohol Use Denied Illicit drug Use Allergies: Penicillins Code Status: Full code Review of Systems Review of Systems Narrative Review of Systems: General appearance: NO weight change, NO fatigue, NO weakness, YES fever, NO chills, NO night sweats, YES cough Skin: NO rash, NO itching, NO sores, NO moles HEENT: NO Trauma, NO nausea, NO vomiting, NO visual changes, NO blurry vision, NO double vision, NO tinnitus, NO vertigo, NO ear discharge, NO rhinorrhea, NO stuffiness, NO sneezing, NO allergy, NO epistaxis. NO Hoarseness, NO sore throat, NO swollen neck. Cardiac: NO Palpitations, NO dyspnea on exertion, NO orthopnea, NO paroxysmal nocturnal dyspnea, NO edema Respiratory: YES Shortness of Breath, No Wheezing, YeS Cough, YES Sputum, NO hemoptysis GI:NO appetite, NO nausea, NO vomiting, NO dysphagia, NO changes in bowel frequency, NO stool color, NO diarrhea, NO constipation, NO hemetemesis, NO hemorrhoids, NO melena, NO hematechezia, NO abdominal pain, NO jaundice Renal: NO frequency, NO hesitancy, NO urgency, NO hematuria, NO nocturia, NO incontinence MSK: NO muscle weakness, NO gout, NO arthritis, NO muscle stiffness Neuro: NO headaches, NO tremors, NO weakness, NO paralysis, NO seizures, NO loss of consciousness, NO numbness. Hem: NO anemia, NO easy bruising/bleeding, NO petechiae, NO purpura Endo: NO heat/cold intolerance, NO excessive sweating, NO polyuria, NO polydipsia, NO polyphagia, NO thyroid problems, NO diabetes Pysch: NO mood, NO anxiety, NO depression Exam Vital Signs Temp Pulse Resp BP Pulse Ox O2 Del Method FiO2 98.3 F 74 21 H 118/54 L 93 L BiPAP 30 01/19/25 10:04 01/19/25 13:30 01/19/25 13:30 01/19/25 10:04 01/19/25 13:30 01/19/25 10:04 01/19/25 13:30 Results: Labs 01/19/25 06:01 01/19/25 06:01 Labs: Short CBC 01/19/25 Range/Units 06:01 WBC 27.2 H D (3.6-11.0) Thou/mm3 Hgb 9.5 L (12.0-16.0) g/dL Hct 30.4 L (36.0-46.0) % Plt Count 488 H (140-440) Thou/mm3 BMP 01/19/25 06:01 Sodium 126 L Potassium 4.6 Chloride 92 L Carbon Dioxide 27.0 BUN 20 Creatinine 0.8 Glucose 123 H Calcium 9.0 Cardiac Enzymes 01/19/25 01/19/25 Range/Units 06:01 09:41 Troponin I 0.046 H* 0.049 H* (0.0-0.045) ng/mL Liver Function 01/19/25 Range/Units 06:01 Total Bilirubin 0.4 (0.3-1.2) mg/dL AST 22 (0-34) U/L ALT 12 (10-49) U/L Alkaline Phosphatase 101 (46-116) U/L Albumin 4.1 (3.4-4.8) gm/dL Urine 01/19/25 Range/Units 06:25 Urine Color Yellow (Lt Yel-Yel) Urine Clarity Clear (Clear/Hazy) Urine pH 6.5 (5.0-7.0) Ur Specific [place] 1.019 (1.001-1.035) Urine Protein 1+ A (Neg - Trace) Urine Glucose (UA) Negative (Negative) ABG Interpretation ABG results: 01/19/25 01/19/25 09:41 11:11 ABG pH 7.40 ABG pCO2 42 ABG pO2 73 L ABG HCO3 25 ABG O2 Saturation 95 ABG Base Excess 1 VBG pH 7.37 VBG pCO2 45 VBG pO2 50 VBG Base Excess 0 Quality Measures Quality Measures none Advance care planning discussed with:: patient Medications Home Medications and Allergies Home Medications ?Medication ?Instructions ?Recorded ?Confirmed ?Type ipratropium 0.5 mg-albuterol 3 mg 3 ml inhalation Q6H PRN sob 12/05/21 01/19/25 History (2.5 mg base)/3 mL nebulization soln levothyroxine 25 mcg tablet 25 mcg PO QAM 12/05/2106/07 History losartan 25 mg tablet 25 mg PO QDAY 12/05/2101/19 History sertraline 50 mg tablet 50 mg PO QDAY 12/05/2101/19 History lorazepam 1 mg tablet 0.5 mg feeding tube Q12H 01/19/25 History montelukast 10 mg tablet 10 mg PO QPM 12/30/24 History brexpiprazole 1 mg tablet (Rexulti) 1 mg feeding tube QAM 01/19/25 01/19/25 History docusate sodium 50 mg/5 mL oral 200 mg feeding tube QP M 01/19/25 01/19/25 History liquid donepezil 10 mg disintegrating 10 mg feeding tube QPM 01/19/25 01/19/25 History tablet melatonin 5 mg tablet 5 mg PO HS 01/19/25 01/19/25 History Allergies Allergy/AdvReac Type Severity Reaction Status Date / Time Penicillins Allergy Intermediate Rash Verified 12/30/24 13:14 Visit Medications Acetaminophen (Acetaminophen 325 Mg Tablet) 650 mg PO Q6H PRN PRN Reason: PAIN OR FEVER > 101 Stop: 02/18/25 09:21 Albuterol/Ipratropium (Albuterol/Ipratropium (Duoneb) Rt Usha 3 Ml Nebu) 3 ml INH Q6HRRT [facility] Stop: 02/18/25 12:59 Heparin Sodium (Porcine) (Heparin Sod Inj 5000 Unit/Ml Vial) 5,000 unit SC Q8HR JOSE Stop: 02/02/25 09:29 Last Admin: 01/19/25 13:22 Dose: 5,000 unit Levofloxacin/Dextrose (Levaquin Ivpb) 750 mg in 150 mls @ 100 mls/hr IV QDAY [facility] Stop: 01/27/25 08:59 Ondansetron HCl (Ondansetron Inj 2 Mg/Ml Inj 2 Ml) 4 mg IV Q6H PRN; Protocol PRN Reason: NAUSEA OR VOMITING Stop: 02/18/25 09:21 Pantoprazole Sodium (Pantoprazole Inj 40 Mg Vial) 40 mg IVP QDAY [facility] Stop: 02/19/25 08:59 Sennosides (Senna Tablet) 1 tab PO QDAY [facility]; Protocol Stop: 02/19/25 08:59 Discontinued Medications Ceftriaxone Sodium/Dextrose (Rocephin/D5w 1gm Iv Premix) 1 gm in 50 mls @ 100 mls/hr IV X1 ONE Stop: 01/19/25 06:16 Last Infusion: 01/19/25 06:59 Dose: Infused Sodium Chloride (Ns) 1,000 mls @ 999 mls/hr IV .Q1H1M ONE Stop: 01/19/25 06:47 Last Infusion: 01/19/25 08:00 Dose: Infused Acetaminophen (Ofirmev Inj) 1,000 mg in 100 mls @ 250 mls/hr IV X1 ONE Stop: 01/19/25 07:18 Last Infusion: 01/19/25 08:03 Dose: Infused Azithromycin 500 mg/ Sodium (Chloride) 250 mls @ 250 mls/hr IV X1 ONE Stop: 01/19/25 08:27 Last Admin: 01/19/25 08:36 Dose: 250 mls/hr Metronidazole (Flagyl 500 Mg Iv) 500 mg in 100 mls @ 200 mls/hr IV Q8HR JOSE Stop: 01/26/25 09:36 Last Admin: 01/19/25 10:49 Dose: Not Given Ciprofloxacin/Dextrose (Cipro Ivpb) 200 mg in 100 mls @ 100 mls/hr IV Q12HR JOSE Stop: 01/26/25 09:39 Ciprofloxacin/Dextrose (Cipro Ivpb) 400 mg in 200 mls @ 200 mls/hr IV Q12HR [facility]; Protocol Stop: 01/27/25 08:59 Levofloxacin/Dextrose (Levaquin Ivpb) 750 mg in 150 mls @ 100 mls/hr IV QDAY JOSE Stop: 01/26/25 09:59 Methylprednisolone Sodium Succinate (Methylprednisolone Sod Succ 62.5 Mg/Ml 2ml Vial) 125 mg IVP X1 ONE Stop: 01/19/25 05:48 Last Admin: 01/19/25 06:18 Dose: 125 mg Sodium Chloride (Sodium Chloride Rt 10% 15 Ml Nebu) 5 ml INH X1 ONE Stop: 01/19/25 09:23 Assessment & Plan Plan Patient is an 89-year-old female with a past medical history of COPD on 4 L of oxygen at home, hypertension 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 #Sepsis, secondary to pneumonia #Pneumonia #Leukocytosis Given risk of squamous cell carcinoma of the tongue w/ dysphagia and increase cough w/ emesis noted by daughter, patient is at an increased risk of aspiration pneumonia. Tachycardiac, Pyrexia, and elevated WBC w/ Pneumonia. DDx: Given BNP elevated w/ pulmonary vascular congestion, CHF can not be ruled out vs PE which is less likely given negative CTA chest. WB 12.6 CRP 19.9 BNP 433 TSH 2.89 Troponin 0.046, 0.049 0.026 Cxr (01/19/2025): Significant pneumonia perihilar and bibasilar, no significant cardiac enlargement, Moderate vascular congestion Medication 1 bolus, Steriods X1, Ceftriaxone and Azithromycin, started patinet on bipap SOFA 3 points Plan -Tylenol as needed -Duonebs -Levofloxacin 01/20/2025 -Azithromycin x 1 ER and ceftriaxone x 1 ER 01/19/2025 -ER bolus X1 given pulmonary vascular congestion -Blood culture pending -Urine culture pending -Sputum culture pending -Echo -Has a bed at 30 degrees given risk of aspiration #COPD exacerbation #COPD Past medical history of smoking history greater than 20+ and oxygen at home, increased sputum and increased shortness of breath, with increased oxygen required-->COPD exacerbation Plan -Levofloxacin 01/20/2025 (w/ psuedo and aytpical coverage) -sputum culture -Bipap-->called RT to do trial off BiPap, at 5:00PM >4hrs on it since admission -Please do not titrate oxygen mask >92% -Monitor for altered mental status on Bipap #Hypertension Patient initially presented with hypertension, but systolic blood pressure improved between 118-130s. Holding losartan as patient not taking at home. Plan -monitor BP, consider restarting Losartan if BP >160 #Dementia Past medical history of dementia and agitation. Patient is currently not taking donepezil-hold. Plan -Hold pregabalin -Sertraline 50 mg HS -Resume Brexpiprazole w/ morning feeds -Lorazepam 0.5 mg QDay PRN -Melatonin HS #Hypothyroidism Resume home medication of Levothyroxine Plan -Resum Levothyroxin 25 mcg AM, prior to food or medicaiton #PEG #Dysphagia Plan -Records Management Coordinator consult -Protonix -Resumed Feeding Health Maintenance: Disp: Pt is currently admitted to floors for further management of sepsis, awaiting blood cultures FEN: PEG tube-patient is taking Levothyroxine, hold TF 1 hr before and after Levothyroxine to prevent TF interaction: TF rate: Jevity 1.5 with goal of 55ml/hr x22hrs. If no IVF give water flush 150ml Q 4 hours. DVT: on subQ heparin Q12 HRs Code: Full Code - The patient's plan was discussed with attending Dr. Robles and senior residents Dr. Santosh Lerner MD PGY1 Internal Medicine
--- NOTE | 2025-01-19 15:25 | PC.RT ---
pt was not alert enough to get sputum sample from when she is we will get sample
--- NOTE | 2025-01-19 15:46 | PC.DIETICIAN ---
Nutrition Prescription: 1) If the patient is not taking Levothyroxine: Start Jevity 1.5 at 20ml/hr via Gtube by pump as tolerated, increase by 10ml Q8hrs to goal of 50ml/hr. If no IVF give water flush 150ml Q 4 hours. 2)?If the patient is taking Levothyroxine, hold TF 1 hr before and after Levothyroxine to prevent TF interaction: TF rate: Jevity 1.5 with goal of 55ml/hr x22hrs. If no IVF give water flush 150ml Q 4 hours. 3)?If pt request to be fed via syringe: Consider syringe feed: Jevity 1.5 start 237ml 5x/day. Give water flush 90ml before and after each feed. Thank you!
[2025-01-19 15:52] LABS: Troponin I 0.026 ng/mL (0.0-0.045)
[2025-01-19] MEDS: SERTRALINE HCL 25 MG TABLET 50 MG PO (21:40)
[2025-01-20] VITALS (12 sets, daily range): BP systolic 114–164; BP diastolic 53–83; PULSE 78–88; RESP 17–28; TEMP 36.3–36.8; O2SAT 91–99
[2025-01-20] MEDS: ALBUTEROL/IPRATROPIUM (Duoneb) RT SOL 3 ML NEBU INH ×4 (01:31→19:30)
--- NOTE | 2025-01-20 04:23 | PC.NURSE ---
Patient has been on 6 liters of oxygen via Oxymask during this shift not on Bipap as indicated in the vital signs.
[2025-01-20] MEDS: LEVOTHYROXINE SODIUM 25 MCG TABLET GT (05:14)
[2025-01-20] MEDS: HEPARIN SOD INJ 5000 UNIT/ML VIAL SC ×3 (05:15→21:04)
[2025-01-20] MEDS: ONDANSETRON INJ 2 MG/ML INJ 2 ML 4 MG IV ×2 (05:32→23:12)
[2025-01-20 05:52] LABS: Basophils # (Auto) 0.1 Thou/mm3 (0.0-0.2); Basophils % (Auto) 0 % (0-2.5); Eosinophils % (Auto) 0 % (0-10); Hematocrit 24.2 % (36.0-46.0); Immature Granulocytes % (Auto) 1 % (0-0); Immature Granulocytes Auto 0.23 Thou/mm3 (0.00-0.00); Lymphocytes # (Auto) 0.5 Thou/mm3 (1.0-4.8); Lymphocytes % (Auto) 3 % (10-50); Mean Corpuscular HGB Conc 31.8 g/dl (31.0-37.0); Mean Corpuscular Hemoglobin 26.5 pg (25.0-35.0); Mean Corpuscular Volume 83 fL (80-100); Monocytes # (Auto) 1.3 Thou/mm3 (0.0-0.8); Monocytes % (Auto) 7 % (0-12); Neutrophils # (Auto) 16.2 Thou/mm3 (1.8-7.7); Neutrophils % (Auto) 89 % (37-80); Nucleated Red Blood Cell % 0 /100 WBC (0); Platelet Count 412 Thou/mm3 (140-440); RDW Standard Deviation 61.1 fL (36.4-46.3); Red Blood Count 2.91 Miln/mm3 (4.00-5.20); White Blood Count 18.2 Thou/mm3 (3.6-11.0)
[2025-01-20 06:21] LABS: Partial Thromboplastin Time 38.2 Seconds (22.0-36.0); Prothrombin Time 11.2 Seconds (9.0-12.2)
[2025-01-20 06:24] LABS: Hemoglobin 7.7 g/dL (12.0-16.0)
[2025-01-20 06:47] LABS: Alanine Aminotransferase 11 U/L (10-49); Albumin, Serum 3.6 gm/dL (3.4-4.8); Albumin/Globulin Ratio 1.3 (1.2-2.2); Alkaline Phosphatase 82 U/L (46-116); Anion Gap 8 (7-16); Aspartate Amino Transferase 13 U/L (0-34); BUN/Creatinine Ratio 26 Ratio (12-20); Bilirubin,Total 0.2 mg/dL (0.3-1.2); Blood Urea Nitrogen 18 mg/dL (9-23); Calcium 8.8 mg/dL (8.3-10.6); Calcium (Corrected) 9.1 mg/dL (8.5-10.1); Carbon Dioxide 26.7 mMol/L (20.0-31.0); Cardiac Risk Estimate 3.2 RATIO (3.7-5.6); Chloride 99 mMol/L (98-107); Cholesterol 153 mg/dL (132-200); Creatinine (Component) 0.7 mg/dL (0.6-1.3); Globulin 2.8 gm/dL (2.3-3.5); Glucose 121 mg/dL (74-106); HDL Cholesterol 48 mg/dL (40-60); LDL Cholesterol,Calculated 83 mg/dL (0-130); Magnesium 2.1 mg/dL (1.6-2.6); Osmolality,Calculated 271 (275-295); Sodium 134 mMol/L (136-145); Total Protein 6.4 gm/dL (5.7-8.2); Triglycerides 111 mg/dL (30-150); eGFR > 60 See Note
[2025-01-20] MEDS: LEVOFLOXACIN/D5W 750MG IVPB 750 MG/150 ML BAG 100 MG IV (09:13)
[2025-01-20] MEDS: PANTOPRAZOLE INJ 40 MG VIAL IVP (09:15)
[2025-01-20] MEDS: SENNA TABLET 1 TAB PO (09:15)
[2025-01-20] MEDS: LORazepam 0.5 MG TABLET GT (09:17)
--- NOTE | 2025-01-20 09:26 | ECHO_ITS ---
Transthoracic Echo Report Ht (in): 66 Wt (lb): 132 Exam Location: [facility] Status: Inpatient Environmental Protection Specialist: ELLIS Carol^^^^ Indications: Procedure Performed: BP: / HR: 104 Technical Quality: Fair MEASUREMENTS (Male / Female) Normal Values 2D ECHO LV Diastolic Diameter PLAX 2.8 cm 4.2 - 5.9 / 3.9 - 5.3 cm LV Systolic Diameter PLAX 2.2 cm IVS Diastolic Thickness 0.8 cm 0.6 - 1.0 / 0.6 - 0.9 cm LVPW Diastolic Thickness 0.8 cm 0.6 - 1.0 / 0.6 - 0.9 cm LV Relative Wall Thickness 0.5 LVOT Diameter 1.8 cm Aortic Root Diameter 3.4 cm LA Systolic Diameter LX 2.4 cm 3.0 - 4.0 / 2.7 - 3.8 cm LV Ejection Fraction MOD BP 66.4 % >= 55 % LV Cardiac Index MOD BP 3613.7 cm?/min?m? LV Ejection Fraction MOD 4C 58.5 % LV Cardiac Index MOD 4C 3457.9 cm?/min?m? LV Ejection Fraction 4C AL 60.1 % LV Cardiac Index 4C AL 3698.0 cm?/min?m? LV Ejection Fraction MOD 2C 75.7 % LV Cardiac Index MOD 2C 3694.6 cm?/min?m? LV Ejection Fraction 2C AL 77.0 % LV Cardiac Index 2C AL 3859.9 cm?/min?m? LA Volume Index 35.0 cm?/m? 16 - 28 cm?/m? Ascending Aorta Diameter 3.5 cm DOPPLER AV Peak Velocity 190.7 cm/s AV Peak Gradient 14.5 mmHg AV Mean Gradient 8.3 mmHg AV Velocity Time Integral 39.7 cm LVOT Peak Velocity 108.5 cm/s LVOT Peak Gradient 4.7 mmHg LVOT Velocity Time Integral 25.5 cm LVOT Cardiac Index 4042.9 cm?/min?m? AV Area Cont Eq vti 1.6 cm? AV Area Cont Eq pk 1.4 cm? MV Area PHT 3.8 cm? Mitral E Point Velocity 103.0 cm/s Mitral A Point Velocity 123.0 cm/s Mitral E to A Ratio 0.8 LV E' Lateral Velocity 10.4 cm/s Mitral E to LV E' Lateral Ratio 9.9 LV E' Septal Velocity 6.3 cm/s Mitral E to LV E' Septal Ratio 16.2 TR Peak Velocity 319.8 cm/s TR Peak Gradient 40.9 mmHg PV Peak Velocity 128.0 cm/s PV Peak Gradient 6.6 mmHg RVOT Peak Velocity 56.9 cm/s FINDINGS Left Ventricle Normal left ventricular size, wall thickness, systolic function with no obvious regional wall motion abnormalities. There is grade I diastolic dysfunction of the left ventricle (impaired relaxation pattern). The left ventricular ejection fraction is normal, estimated at 55-60%. Right Ventricle The right ventricle is normal in size and systolic function. The estimated right ventricular systolic pressure, 48 mmHg. Left Atrium The left atrium is normal by two-dimensional, color flow and Doppler imaging with no structural abnormalities, no thrombus formation present. Right Atrium The right atrium is normal by two-dimensional imaging, color flow and Doppler imaging with no structural abnormalities, no thrombus formation present. Atrial Septum The interatrial septum appears normal with no evidence of a shunt. Aorta The aorta is normal by two-dimensional, color flow and Doppler interrogation. Mitral Valve trace to mild mitral regurgitation. Mild mitral annular calcification. Aortic Valve Mild aortic valve stenosis, mean gradient 8.3 mmHg, KATIA 1.6 cm?. Mild thickening of the aortic valve leaflets. Tricuspid Valve There is mild to moderate tricuspid valve regurgitation. Pulmonic Valve Trivial pulmonic valve regurgitation. Vessels The pulmonary artery appears normal. The inferior vena cava pulmonary and hepatic veins appear normal. Pericardium The pericardium is normal by two-dimensional imaging. There is no significant pericardial effusion. CONCLUSIONS indication: elevated Troponin The transthoracic study is normal by two-dimensional, color flow imaging and Doppler interrogation. Normal left ventricular size and function. Approximate ejection fraction is 50-55%. Aortic valve sclerosis no stenosis Trace mitral and trace tricuspid regurgitation No wall motion abnormalities Deborah Hansen (Electronically Signed) Final Date: 20 January 2025 12:52
--- NOTE | 2025-01-20 13:03 | PC.CM ---
Patient is opened to [facility] home health. Please have doctor put in home health orders if patient discharges to home.
--- NOTE | 2025-01-20 13:10 | ESPR_ITS ---
<Statement entered by Jackelyn Robles MD - 01/24/25 15:08> I reviewed above note and agree with findings and plans. I have also personally examined the patient with medicine team and went over assessment and plan with medical team including sourcing internship and resident physician. <Statement entered by Leonora Frost MD - 01/20/25 15:41> No acute overnight event, WBC down trended, 18.2, patient is afebrile, will continue with levofloxacin for now, cultures are pending. Trops downtrended to normal limits. CMP unremarkable, revealed mild hyponatremia 134. Will continue with antibiotics, will follow-up with the final cultures, anticipate discharge tomorrow. I personally saw and examined the patient and discussed the assessment and plan with the entire medicine team, including my attending Dr. Robles, Leonora Frost M.D. PGY-2 Disclaimer: Despite multiple revisions, due to the dictation software being used, the document bellow may not be free of grammatical errors including phonetic/typographic errors. However, this does not deter from our commitment to providing health care in the patient's best interest in mind. Documentation for date of: 01/20/25 Subjective Subjective Interval history: No overnight events. Patient taken off Bipap. Patient deneid SOB this morning, patinet denied chest pain, and denied fever/chills. Patient was worried this morning for her daughter as patient is concern about financial aspects at home. Patient has been saturating well on 7 Liters of oxygen this morning and was titrated down as to maintain goal of spO<93%. Duonebs scheduled. Feeding tube yesterday evening. Continue antibiotics, consider decreasing dosage given QT >500, repeat chest x-ray. WBCs continue to downtrend. Blood culture negative after 24 hours. Exam Vital Signs Temp Pulse Resp BP Pulse Ox O2 Del Method O2 Flow Rate 98.0 F 78 18 114/53 L 99 Room Air 5 01/20/25 12:00 01/20/25 12:37 01/20/25 12:37 01/20/25 12:00 01/20/25 12:37 01/20/25 12:00 01/20/25 12:37 FiO2 30 01/20/25 03:58 Narrative Exam General Appearance: Alert & Oriented X2, thin female who is lying in bed in no acute distress HEENT: Skull symmetrical and atraumatic. Conjunctivae pin and moist. Pupils equal, round, reactive to light and accommodation (PERRL). External ear without lesion or discharge. Straight, nares patient, mucosa pink, no discharge. No thyroid nodule appreciated. No cervical lymphadenopathy. Cardio: Normal Rate and Rhythm with S1 and S2 heart sounds. No murmurs or extra heart sounds auscultated. No bruits on carotid auscultation. No peripheral edema or cyanosis. Lungs: Symmetric with good expansion. Chest and back non-tender. Breath sounds vesicular with wheezing. Abdomen: Non-tender, Non-distended, Normal Reactive Bowel Sounds Neuro: Alert, cooperative, oriented to person, place, and time. Speech clear. CN grossly intact. Upper motor strength 5/5 and Lower motor strength 5/5. Sensation intact. Objective Labs 01/20/25 04:20 01/20/25 04:20 Labs: Laboratory Results - last 24 hr 01/19/25 01/19/25 01/20/25 15:18 21:24 04:20 WBC 18.2 H D RBC 2.91 L Hgb 7.7 L Hct 24.2 L MCV 83 MCH 26.5 MCHC 31.8 RDW Std Deviation 61.1 H Plt Count 412 D Neut % (Auto) 89 H Lymph % (Auto) 3 L [place] % (Auto) 7 Eos % (Auto) 0 Baso % (Auto) 0 Neut # (Auto) 16.2 H Lymph # (Auto) 0.5 L [place] # (Auto) 1.3 H Eos # (Auto) 0.0 Baso # (Auto) 0.1 Immature Gran # (Auto) 0.23 H Absolute Nucleated RBC 0.00 Immature Gran % 1 H Nucleated RBC % 0 PT 11.2 INR 1.0 APTT 38.2 H Sodium 134 L Potassium 4.0 D Chloride 99 Carbon Dioxide 26.7 Anion Gap 8 BUN 18 Creatinine 0.7 Estim Creat Clear Calc 52.0 L eGFR > 60 BUN/Creatinine Ratio 26 H Glucose 121 H Calculated Osmolality 271 L Calcium 8.8 Corrected Calcium 9.1 Phosphorus 4.0 Magnesium 2.1 Total Bilirubin 0.2 L AST 13 ALT 11 Alkaline Phosphatase 82 Troponin I 0.026 0.020 Total Protein 6.4 Albumin 3.6 D Globulin 2.8 Albumin/Globulin Ratio 1.3 Triglycerides 111 Cholesterol 153 LDL Cholesterol, Calc 83 HDL Cholesterol 48 Cholesterol/HDL Ratio 3.2 L ABG Interpretation ABG results: 01/19/25 01/19/25 09:41 11:11 ABG pH 7.40 ABG pCO2 42 ABG pO2 73 L ABG HCO3 25 ABG O2 Saturation 95 ABG Base Excess 1 VBG pH 7.37 VBG pCO2 45 VBG pO2 50 VBG Base Excess 0 Quality Measures Quality Measures none Advance care planning discussed with:: patient Assessment & Plan Assessment Current Active Medications: Generic Name Dose Route Start Last Admin Trade Name Freq PRN Reason Stop Dose Admin Acetaminophen 650 mg 01/19/25 09:22 Acetaminophen 325 Mg Tablet PO 02/18/25 09:21 Q6H PRN PAIN OR FEVER > 101 Albuterol/Ipratropium 3 ml 01/19/25 13:00 01/20/25 12:35 Albuterol/Ipratropium (Duoneb) Rt Usha 3 Ml Nebu INH 02/18/25 12:59 3 ml Q6HRRT JOSE Administration Heparin Sodium (Porcine) 5,000 unit 01/19/25 09:30 01/20/25 05:15 Heparin Sod Inj 5000 Unit/Ml Vial SC 02/02/25 09:29 5,000 unit Q8HR JOSE Administration Levofloxacin/Dextrose 750 mg in 150 mls @ 100 mls/hr 01/20/25 09:00 01/20/25 09:13 Levaquin Ivpb IV 01/27/25 08:59 100 mls/hr QDAY JOSE Administration Levothyroxine Sodium 25 mcg 01/20/25 06:00 01/20/25 05:14 Levothyroxine Sodium 25 Mcg Tablet GT 02/19/25 05:59 25 mcg ACBR JOSE Administration Lorazepam 0.5 mg 01/20/25 09:00 01/20/25 09:17 Lorazepam 0.5 Mg Tablet GT 01/25/25 08:59 0.5 mg QDAY JOSE Administration Melatonin 3 mg 01/19/25 17:39 Melatonin 3 Mg Tablet PO 02/18/25 20:59 HS PRN Sleep Non-Formulary Medication 1 mg 01/20/25 09:00 01/20/25 10:17 Brexiprazole NG 02/19/25 08:59 Not Given QA JOSE Ondansetron HCl 4 mg 01/19/25 09:22 01/20/25 05:32 Ondansetron Inj 2 Mg/Ml Inj 2 Ml IV 02/18/25 09:21 4 mg Q6H PRN Administration NAUSEA OR VOMITING Protocol Pantoprazole Sodium 40 mg 01/20/25 09:00 01/20/25 09:15 Pantoprazole Inj 40 Mg Vial IVP 02/19/25 08:59 40 mg QDAY JOSE Administration Sennosides 1 tab 01/20/25 09:00 01/20/25 09:15 Senna Tablet PO 02/19/25 08:59 1 tab QDAY JOSE Administration Protocol Sertraline HCl 50 mg 01/19/25 21:00 01/19/25 21:40 Sertraline Hcl 25 Mg Tablet PO 02/18/25 20:59 50 mg HS JOSE Administration Plan Patient is an 89-year-old female with a past medical history of COPD on 4 L of oxygen at home, hypertension 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 #Pneumonia, likely CAP GPC #Leukocytosis, improving #Sepsis, secondary to pneumonia, resolved. #Troponemia Given risk of squamous cell carcinoma of the tongue w/ dysphagia and increase cough w/ emesis noted by daughter, patient is at an increased risk of aspiration pneumonia. Tachycardiac, Pyrexia, and elevated WBC w/ Pneumonia. DDx: Given BNP elevated w/ pulmonary vascular congestion, CHF can not be ruled out vs PE which is less likely given negative CTA chest. Echo (01/20/2025): EF 50-55% w/ trace mitral and trace tricuspid reg Chest X-ray: Significant bilateral pneumonia CTA chest: COPD, Septal pumonary edema, bibasilar pneumonia SOFA 3 points Plan -Tylenol as needed -Duonebs -Levofloxacin 750 01/20/2025 -Azithromycin x 1 ER and ceftriaxone x 1 ER 01/19/2025 -ER bolus X1 given pulmonary vascular congestion -Blood culture pending -Urine culture pending -Sputum culture pending -Echo -Has a bed at 30 degrees given risk of aspiration #COPD exacerbation #COPD Past medical history of smoking history greater than 20+ and oxygen at home, increased sputum and increased shortness of breath, with increased oxygen required-->COPD exacerbation Plan -Levofloxacin 01/20/2025 (w/ psuedo and aytpical coverage) -sputum culture -on oxy mask on 4 liters -Please do not titrate oxygen mask >92% -Monitor for altered mental status on Bipap #Hypertension Patient initially presented with hypertension, but systolic blood pressure improved between 118-130s. Holding losartan as patient not taking at home. Plan -monitor BP, consider restarting Losartan if BP >160 #Dementia Past medical history of dementia and agitation. Patient is currently not taking donepezil-hold. Plan -Hold pregabalin -Sertraline 50 mg HS -Brexpiprazole -Lorazepam 0.5 mg QDay -Melatonin HS #Hypothyroidism Resume home medication of Levothyroxine Plan -Resume Levothyroxin 25 mcg AM, prior to food or medication #PEG #Dysphagia Plan -House Decorator consult -Protonix -Resumed Feeding Health Maintenance: Disp: Pt is currently admitted to floors for further management of sepsis and COPD exacerbation, awaiting blood cultures FEN: PEG tube-patient is taking Levothyroxine, hold TF 1 hr before and after Levothyroxine to prevent TF interaction: TF rate: Jevity 1.5 with goal of 55ml/hr x22hrs. If no IVF give water flush 150ml Q 4 hours. DVT: on subQ heparin Q12 HRs Code: Full Code, pending POLS form from daughter - The patient's plan was discussed with attending Dr. Robles and senior residents Dr. Santosh Lerner MD PGY1
--- NOTE | 2025-01-20 15:19 | PC.SS ---
Rounding note: pending echo, blood and sputum cultures. D/c plan is to return home with JOSE LUIS BUSH.
[2025-01-20] MEDS: SERTRALINE HCL 25 MG TABLET 50 MG PO (20:55)
[2025-01-21] VITALS (19 sets, daily range): BP systolic 150–164; BP diastolic 69–90; PULSE 70–107; RESP 12–39; TEMP 36.2–36.3; O2SAT 89–98
[2025-01-21] MEDS: ALBUTEROL/IPRATROPIUM (Duoneb) RT SOL 3 ML NEBU INH ×5 (00:57→19:28)
[2025-01-21] MEDS: ONDANSETRON INJ 2 MG/ML INJ 2 ML 4 MG IV ×2 (04:54→19:38)
[2025-01-21] MEDS: LEVOTHYROXINE SODIUM 25 MCG TABLET GT (05:28)
[2025-01-21] MEDS: HEPARIN SOD INJ 5000 UNIT/ML VIAL SC ×2 (05:28→21:10)
[2025-01-21 05:39] LABS: Basophils % (Auto) 0 % (0-2.5); Eosinophils % (Auto) 0 % (0-10); Hematocrit 25.4 % (36.0-46.0); Immature Granulocytes % (Auto) 1 % (0-0); Immature Granulocytes Auto 0.18 Thou/mm3 (0.00-0.00); Lymphocytes # (Auto) 0.5 Thou/mm3 (1.0-4.8); Lymphocytes % (Auto) 4 % (10-50); Mean Corpuscular HGB Conc 30.7 g/dl (31.0-37.0); Mean Corpuscular Hemoglobin 25.9 pg (25.0-35.0); Mean Corpuscular Volume 84 fL (80-100); Monocytes # (Auto) 0.9 Thou/mm3 (0.0-0.8); Monocytes % (Auto) 7 % (0-12); Neutrophils # (Auto) 10.9 Thou/mm3 (1.8-7.7); Neutrophils % (Auto) 87 % (37-80); Nucleated Red Blood Cell % 0 /100 WBC (0); Platelet Count 440 Thou/mm3 (140-440); Red Blood Count 3.01 Miln/mm3 (4.00-5.20); White Blood Count 12.6 Thou/mm3 (3.6-11.0)
[2025-01-21 05:41] LABS: Hemoglobin 7.8 g/dL (12.0-16.0)
[2025-01-21 06:26] LABS: Alanine Aminotransferase 10 U/L (10-49); Albumin, Serum 3.7 gm/dL (3.4-4.8); Albumin/Globulin Ratio 1.3 (1.2-2.2); Alkaline Phosphatase 75 U/L (46-116); Anion Gap 7 (7-16); Aspartate Amino Transferase 19 U/L (0-34); BUN/Creatinine Ratio 26 Ratio (12-20); Bilirubin,Total 0.2 mg/dL (0.3-1.2); Blood Urea Nitrogen 18 mg/dL (9-23); Calcium 8.7 mg/dL (8.3-10.6); Calcium (Corrected) 8.9 mg/dL (8.5-10.1); Carbon Dioxide 27.7 mMol/L (20.0-31.0); Chloride 100 mMol/L (98-107); Creatinine (Component) 0.7 mg/dL (0.6-1.3); Estimated Creatinine Clearance 51.4 mL/min (>60); Globulin 2.8 gm/dL (2.3-3.5); Glucose 118 mg/dL (74-106); Osmolality,Calculated 273 (275-295); Phosphorous 3.9 mg/dL (2.4-5.1); Potassium 4.3 mMol/L (3.4-5.1); Sodium 135 mMol/L (136-145); Total Protein 6.5 gm/dL (5.7-8.2); eGFR > 60 See Note
--- NOTE | 2025-01-21 08:07 | EKG_ITS ---
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
--- NOTE | 2025-01-21 08:08 | XR_ITS ---
Examination: AP chest single view Technique one AP portable upright chest single view Exam date and time: January 21, 2025 0838 hrs. Comparison January 19, 2025 Indications: Difficulty breathing this week, bilateral pneumonia on chest film January 2025 Findings: Again noted significant perihilar bibasilar pneumonia Normal heart size Ectatic thoracic aorta Prominent osteopenia Impression: Significant bilateral pneumonia ARDS remains
[2025-01-21] MEDS: BUDESONIDE RT 0.5 MG/2 ML NEBU INH (08:46)
[2025-01-21 08:56] LABS: Base Excess 4 (-3-3); HCO3 28 mEq/L (20-26); Inspired Oxygen, FIO2 30 %; O2 Saturation 92 % (91-98); PCO2 42 mmHg (32.0-48.0); pH, Arterial 7.44 (7.35-7.45)
[2025-01-21 09:02] LABS: Allen Test Not Performed; PO2 59 mmHg (83-108); Puncture Site Right Brachial
[2025-01-21] MEDS: Magnesium Sulfate 2 GM Ivpb 2 GM/50 ML BAG IV (09:29)
[2025-01-21] MEDS: metroNIDAZOLE/NS 500 MG IVPB 500 MG/100 ML BAG 200 MG IV ×2 (09:31→21:29)
[2025-01-21] MEDS: SENNA TABLET 1 TAB PO (09:44)
[2025-01-21] MEDS: LORazepam 0.5 MG TABLET GT (09:44)
[2025-01-21] MEDS: LOSARTAN POTASSIUM 25 MG TABLET GT (09:45)
[2025-01-21] MEDS: FUROSEMIDE INJ 10 MG/ML 4ML VIAL 40 MG IVP (10:07)
[2025-01-21] MEDS: PANTOPRAZOLE INJ 40 MG VIAL IVP (10:08)
[2025-01-21] MEDS: cefTRIAXone/D5w 1gm IV premix 1 GM/50 ML BAG IV (10:50)
--- NOTE | 2025-01-21 13:44 | ESPR_ITS ---
<Statement entered by Jackelyn Robles MD - 01/28/25 07:28> I reviewed above note and agree with findings and plans. I have also personally examined the patient with medicine team and went over assessment and plan with medical team including management retail intern and resident physician. Documentation for date of: 01/21/25 Patient is an 89-year-old female, past medical history of COPD on 4 L home oxygen, status post PEG PEG tube following squamous cell carcinoma of tongue, status post radiation, she was brought into the emergency room saturating in the 60s on pulse ox, increased work of breathing following 3 episodes of vomiting. She is accompanied by daughter, who is the pharmaceutical representative of the patient at home, the patient was admitted for acute hypoxic respiratory failure and sepsis likely secondary to aspiration pneumonia. #Sepsis secondary to pneumonia?likely aspiration pneumonia, #Acute hypoxic respiratory failure #COPD #Hypertension #History of squamous cell carcinoma of the tongue #Status post PEG tube #History of dementia The patient had increased work of breathing following episodes of vomiting and aspiration event, associated with acute hypoxic respiratory failure, requiring BiPAP. Additional admits to start patient on levofloxacin 750 mg daily initially, as QTc 390 on initial EKG, later QTc 510, antibiotic switched to ceftriaxone and Flagyl. On 01/21/2025 patient had increased work of breathing, respiratory in the 30s, started on oxygen mask but continued to have respiratory distress started on BiPAP, ABG was ordered which showed hypoxia PaO2 59 on 30% FiO2. PF ratio 190, chest x-ray showed bilateral infiltrates, worse than admission. Based off of [place] criteria patient may be a candidate for aggressive management including intubation, but with the patient's daughter and she is aware of the overall prognosis and maintains that the patient's CODE STATUS stays DNR and would prefer more comfort focused treatment. Given patient's overall condition and worsening oxygen requirements, we will continue to monitor for respiratory distress. Plan of care discussed in attending Dr. Margaret Graves PGy2 Subjective Subjective Interval history: No overnight events reported for patient. This morning patient appeared to have increased work of breathing with accessory muscle use. Patient was still alert and oriented x 2 which is her baseline per daughter. Patient's rate of respiration was 33 and blood pressure 132/72. ABG ordered chest x-ray ordered EKG ordered and patient levofloxacin switched over to ceftriaxone and metronidazole. Patient started on Bipap-->switched to Cpap given ABG. Exam Vital Signs Temp Pulse Resp BP Pulse Ox O2 Del Method O2 Flow Rate 97.4 F 92 26 H 163/85 H 94 L CPAP 4 01/21/25 11:47 01/21/25 13:06 01/21/25 13:06 01/21/25 12:07 01/21/25 13:06 01/21/25 11:47 01/21/25 13:06 FiO2 30 01/21/25 09:03 Narrative Exam General Appearance: Alert & Oriented X2, thin female who is lying in bed in mild distress w/ increased work of breathing using accessory muscles, no retractions noted. HEENT: Skull symmetrical and atraumatic. Conjunctivae pin and moist. Pupils equal, round, reactive to light and accommodation (PERRL). External ear without lesion or discharge. Straight, nares patient, mucosa pink, no discharge. No thyroid nodule appreciated. No cervical lymphadenopathy. Cardio: Normal Rate and Rhythm with S1 and S2 heart sounds. No murmurs or extra heart sounds auscultated. No bruits on carotid auscultation. No peripheral edema or cyanosis. Lungs: Symmetric with good expansion. Chest and back non-tender. Breath sounds vesicular without crackles, wheezing or rhonchi Abdomen: Non-tender, Non-distended, Normal Reactive Bowel Sounds Neuro: Yes Alert, Yes cooperative, Yes oriented to person, Yes place, and No time. Speech clear. CN grossly intact. Upper motor strength 5/5 and Lower motor strength 5/5. Sensation intact. Objective Labs 01/21/25 04:50 01/21/25 04:50 Labs: Laboratory Results - last 24 hr 01/21/25 01/21/25 04:50 08:48 WBC 12.6 H D RBC 3.01 L Hgb 7.8 L Hct 25.4 L MCV 84 MCH 25.9 MCHC 30.7 L RDW Std Deviation 63.0 H Plt Count 440 Neut % (Auto) 87 H Lymph % (Auto) 4 L [place] % (Auto) 7 Eos % (Auto) 0 Baso % (Auto) 0 Neut # (Auto) 10.9 H Lymph # (Auto) 0.5 L [place] # (Auto) 0.9 H Eos # (Auto) 0.0 Baso # (Auto) 0.0 Immature Gran # (Auto) 0.18 H Absolute Nucleated RBC 0.00 Immature Gran % 1 H Nucleated RBC % 0 Puncture Site Right Brachial ABG pH 7.44 ABG pCO2 42 ABG pO2 59 L* ABG HCO3 28 H ABG O2 Saturation 92 ABG Base Excess 4 H FiO2 30 Sodium 135 L Potassium 4.3 Chloride 100 Carbon Dioxide 27.7 Anion Gap 7 BUN 18 Creatinine 0.7 Estim Creat Clear Calc 51.4 L eGFR > 60 BUN/Creatinine Ratio 26 H Glucose 118 H Calculated Osmolality 273 L Calcium 8.7 Corrected Calcium 8.9 Phosphorus 3.9 Magnesium 2.0 Total Bilirubin 0.2 L AST 19 ALT 10 Alkaline Phosphatase 75 Total Protein 6.5 Albumin 3.7 Globulin 2.8 Albumin/Globulin Ratio 1.3 ABG Interpretation ABG results: 01/19/25 01/19/25 01/21/25 09:41 11:11 08:48 ABG pH 7.40 7.44 ABG pCO2 42 42 ABG pO2 73 L 59 L* ABG HCO3 25 28 H ABG O2 Saturation 95 92 ABG Base Excess 1 4 H VBG pH 7.37 VBG pCO2 45 VBG pO2 50 VBG Base Excess 0 Quality Measures Quality Measures none Advance care planning discussed with:: patient Assessment & Plan Assessment Current Active Medications: Generic Name Dose Route Start Last Admin Trade Name Freq PRN Reason Stop Dose Admin Acetaminophen 650 mg 01/19/25 09:22 Acetaminophen 325 Mg Tablet PO 02/18/25 09:21 Q6H PRN PAIN OR FEVER > 101 Albuterol/Ipratropium 3 ml 01/19/25 13:00 01/21/25 13:05 Albuterol/Ipratropium (Duoneb) Rt Usha 3 Ml Nebu INH 02/18/25 12:59 3 ml Q6HRRT JOSE Administration Albuterol/Ipratropium 3 ml 01/21/25 08:07 01/21/25 08:14 Albuterol/Ipratropium (Duoneb) Rt Usha 3 Ml Nebu INH 02/20/25 08:06 3 ml Q2HR PRN Administration SHORTNESS OF BREATH OR WHEEZE Heparin Sodium (Porcine) 5,000 unit 01/19/25 09:30 01/21/25 05:28 Heparin Sod Inj 5000 Unit/Ml Vial SC 02/02/25 09:29 5,000 unit Q8HR JOSE Administration Ceftriaxone Sodium/Dextrose 1 gm in 50 mls @ 100 mls/hr 01/21/25 09:00 01/21/25 10:50 Rocephin/D5w 1gm Iv Premix IV 01/28/25 08:59 100 mls/hr QDAY JOSE Administration Metronidazole 500 mg in 100 mls @ 200 mls/hr 01/21/25 08:42 01/21/25 09:31 Flagyl 500 Mg Iv IV 01/28/25 08:41 200 mls/hr Q8HR JOSE Administration Levothyroxine Sodium 25 mcg 01/20/25 06:00 01/21/25 05:28 Levothyroxine Sodium 25 Mcg Tablet GT 02/19/25 05:59 25 mcg ACBR JOSE Administration Lorazepam 0.5 mg 01/20/25 09:00 01/21/25 09:44 Lorazepam 0.5 Mg Tablet GT 01/25/25 08:59 0.5 mg QDAY JOSE Administration Losartan Potassium 25 mg 01/21/25 09:00 01/21/25 09:45 Losartan Potassium 25 Mg Tablet GT 02/20/25 08:59 25 mg QDAY JOSE Administration Melatonin 3 mg 01/19/25 17:39 Melatonin 3 Mg Tablet PO 02/18/25 20:59 HS PRN Sleep Non-Formulary Medication 1 mg 01/20/25 09:00 01/21/25 11:10 Brexiprazole NG 02/19/25 08:59 Not Given QAM JOSE Ondansetron HCl 4 mg 01/19/25 09:22 01/21/25 04:54 Ondansetron Inj 2 Mg/Ml Inj 2 Ml IV 02/18/25 09:21 4 mg Q6H PRN Administration NAUSEA OR VOMITING Protocol Pantoprazole Sodium 40 mg 01/20/25 09:00 01/21/25 10:08 Pantoprazole Inj 40 Mg Vial IVP 02/19/25 08:59 40 mg QDAY JOSE Administration Sennosides 1 tab 01/20/25 09:00 01/21/25 09:44 Senna Tablet PO 02/19/25 08:59 1 tab QDAY JOSE Administration Protocol Sertraline HCl 50 mg 01/19/25 21:00 01/20/25 20:55 Sertraline Hcl 25 Mg Tablet PO 02/18/25 20:59 50 mg HS JOSE Administration Plan Patient is an 89-year-old female with a past medical history of COPD on 4 L of oxygen at home, hypertension 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 #Pneumonia, likely Aspiration pneumonia #Leukocytosis, improving #Sepsis, secondary to pneumonia, resolved. #Troponemia Given risk of squamous cell carcinoma of the tongue w/ dysphagia and increase cough w/ emesis noted by daughter, patient is at an increased risk of aspiration pneumonia. Tachycardiac, Pyrexia, and elevated WBC w/ Pneumonia. DDx: Given BNP elevated w/ pulmonary vascular congestion, CHF can not be ruled out vs PE which is less likely given negative CTA chest. Echo (01/20/2025): EF 50-55% w/ trace mitral and trace tricuspid reg Chest X-ray: Significant bilateral pneumonia CTA chest: COPD, Septal pumonary edema, bibasilar pneumonia SOFA 3 points Plan -Tylenol as needed -Duonebs -Ceftriaxone 1 gm & Flagyl 01/21/2025 (given QT prolongation) -Levofloxacin 750 01/20/2025-01/21/2025 -Azithromycin x 1 ER and ceftriaxone x 1 ER 01/19/2025 -Has a bed at 30 degrees given risk of aspiration #COPD exacerbation, improved #COPD Past medical history of smoking history greater than 20+ and oxygen at home, increased sputum and increased shortness of breath, with increased oxygen required-->COPD exacerbation Plan -on oxy mask on 4 liters -->CPAP -Please do not titrate oxygen mask >92% #Hypertension Patient initially presented with hypertension, but systolic blood pressure improved between 118-130s. Holding losartan as patient not taking at home. Plan -restarted Losartan 25 mg GT #Dementia Past medical history of dementia and agitation. Patient is currently not taking donepezil-hold. Plan -Hold pregabalin -Sertraline 50 mg HS -Brexpiprazole -Lorazepam 0.5 mg QDay -Melatonin HS #Hypothyroidism Resume home medication of Levothyroxine Plan -Resume Levothyroxin 25 mcg AM, prior to food or medication #PEG #Dysphagia Plan -NPO Now -Tap Grinder consult -Goal PEG tube-patient is taking Levothyroxine, hold TF 1 hr before and after Levothyroxine to prevent TF interaction: TF rate: Jevity 1.5 with goal of 55ml/hr x22hrs. If no IVF give water flush 150ml Q 4 hours -Protonix -Resumed Feeding #Goals of Care -spoke w/ patient's daughter, Alis, who is power of outside salesperson, and had discussion about patients worsening prognosis, history of cancer & COPD -->switched to DNR -Witnessed by resident physician (Dr. Lerner) & nurse, formerly [facility] Maintenance: Disp: Pt is currently admitted to floors for further management of sepsis and COPD exacerbation, awaiting blood cultures FEN: PEG feedings stopped-->NOW NPO given CPAP, started on 01/21/2025 10:00 AM DVT: on subQ heparin Q12 HRs Code: DNR - The patient's plan was discussed with attending Dr. Robles and senior residents Dr. Ely Lerner MD PGY1
--- NOTE | 2025-01-21 15:08 | PC.SS ---
Rounding note: treating for PNA. Pending improvement of respiratory rate.
--- NOTE | 2025-01-21 16:17 | PD.RESEVENT ---
Documentation for date of: 01/21/25 Goals of Care: Goals of care discussion was held with the daughter Alis in the presence of RN So and RN Santana, my senior resident Dr. Graves and attending Dr. Robles were also present. We went over patient's clinical condition, ARDS like presentation given aspiration pneumonia and history of COPD. Worsening oxygen requirements, inability tolerate BiPAP due to agitation as well as increased risk of aspiration as patient is currently dry heaving, withheld patient's PEG tube feeds. Patient's O2 sats worsened , hypoxic down to 70's on high flow nasal cannula, restarted on OxyMask. Alis stated she would like to talk to her brother about moving forward with comfort care versus intubation if her condition continues to deteriorate. Finally as part of shared medical decision making, with the family onboard, it was decided in the patient's best interest, keeping in line with her values, to proceed with comfort care measures to preserve her dignity if patient starts to decompensates and becomes restless and hypoxic. Patient remains DNR/DNI with transition to comfort care measures. Daughter would like to be contacted overnight before starting comfort care measures if patient decompensates. Before starting comfort care measure- please call patient's daughter - The patient's plan was discussed with attending Dr. Robles and senior residents Dr. Ely Lerner MD PGY1 Internal Medicine Senior resident attestation: Patient evaluated and examined at the bedside, plan of care discussed with rest of the team including my attending physician, except as noted. Ely PGY2
[2025-01-21] MEDS: SERTRALINE HCL 25 MG TABLET 50 MG PO (21:07)
[2025-01-21] MEDS: MELATONIN 3 MG TABLET PO (21:08)
[2025-01-22] VITALS (11 sets, daily range): BP systolic 148–171; BP diastolic 71–97; PULSE 6–94; RESP 19–29; TEMP 36.3–36.6; O2SAT 88–100
[2025-01-22] MEDS: ALBUTEROL/IPRATROPIUM (Duoneb) RT SOL 3 ML NEBU INH ×4 (01:42→18:30)
[2025-01-22] MEDS: HEPARIN SOD INJ 5000 UNIT/ML VIAL SC ×3 (05:41→21:00)
[2025-01-22] MEDS: metroNIDAZOLE/NS 500 MG IVPB 500 MG/100 ML BAG 200 MG IV ×3 (05:41→21:00)
[2025-01-22] MEDS: LEVOTHYROXINE SODIUM 25 MCG TABLET GT (05:42)
[2025-01-22 05:45] LABS: Basophils # (Auto) 0.1 Thou/mm3 (0.0-0.2); Basophils % (Auto) 1 % (0-2.5); Eosinophils # (Auto) 0.1 Thou/mm3 (0.0-0.5); Eosinophils % (Auto) 1 % (0-10); Hematocrit 25.7 % (36.0-46.0); Immature Granulocytes % (Auto) 2 % (0-0); Immature Granulocytes Auto 0.21 Thou/mm3 (0.00-0.00); Lymphocytes # (Auto) 0.6 Thou/mm3 (1.0-4.8); Lymphocytes % (Auto) 6 % (10-50); Mean Corpuscular HGB Conc 31.5 g/dl (31.0-37.0); Mean Corpuscular Hemoglobin 25.6 pg (25.0-35.0); Mean Corpuscular Volume 81 fL (80-100); Monocytes # (Auto) 0.9 Thou/mm3 (0.0-0.8); Monocytes % (Auto) 8 % (0-12); Neutrophils # (Auto) 8.7 Thou/mm3 (1.8-7.7); Neutrophils % (Auto) 82 % (37-80); Nucleated Red Blood Cell % 0 /100 WBC (0); Platelet Count 414 Thou/mm3 (140-440); RDW Standard Deviation 60.4 fL (36.4-46.3); Red Blood Count 3.16 Miln/mm3 (4.00-5.20); White Blood Count 10.6 Thou/mm3 (3.6-11.0)
[2025-01-22 06:00] LABS: Hemoglobin 8.1 g/dL (12.0-16.0)
[2025-01-22 06:22] LABS: Alanine Aminotransferase 9 U/L (10-49); Albumin, Serum 3.6 gm/dL (3.4-4.8); Albumin/Globulin Ratio 1.3 (1.2-2.2); Alkaline Phosphatase 68 U/L (46-116); Anion Gap 9 (7-16); Aspartate Amino Transferase 12 U/L (0-34); BUN/Creatinine Ratio 20 Ratio (12-20); Bilirubin,Total 0.2 mg/dL (0.3-1.2); Blood Urea Nitrogen 16 mg/dL (9-23); Calcium 8.6 mg/dL (8.3-10.6); Calcium (Corrected) 8.9 mg/dL (8.5-10.1); Carbon Dioxide 29.6 mMol/L (20.0-31.0); Chloride 99 mMol/L (98-107); Creatinine (Component) 0.8 mg/dL (0.6-1.3); Estimated Creatinine Clearance 43.9 mL/min (>60); Globulin 2.7 gm/dL (2.3-3.5); Glucose 97 mg/dL (74-106); Magnesium 2.2 mg/dL (1.6-2.6); Osmolality,Calculated 276 (275-295); Phosphorous 4.7 mg/dL (2.4-5.1); Potassium 3.6 mMol/L (3.4-5.1); Sodium 138 mMol/L (136-145); Total Protein 6.3 gm/dL (5.7-8.2); eGFR > 60 See Note
[2025-01-22] MEDS: cefTRIAXone/D5w 1gm IV premix 1 GM/50 ML BAG IV (09:36)
[2025-01-22] MEDS: PANTOPRAZOLE INJ 40 MG VIAL IVP (09:38)
[2025-01-22] MEDS: SENNA TABLET 1 TAB PO (09:38)
[2025-01-22] MEDS: LOSARTAN POTASSIUM 25 MG TABLET GT (09:38)
--- NOTE | 2025-01-22 10:43 | XR_ITS ---
Exam: Chest 1 view, AP Date and time of exam: 01/22/2025, 11:24 AM Comparison: 01/21/2025 INDICATION: Shortness of breath Findings: Heart size remains normal. Persistent areas of opacification bilateral lung bases. The left costophrenic angle and hemidiaphragm are obscured. Upper zones are clear. No pneumothorax. Diffuse atherosclerotic calcifications in the aorta. Impression: Persistent bilateral lower zone infiltrates with likely left pleural effusion.
--- NOTE | 2025-01-22 11:34 | PC.SS ---
rounding note: Notes indicate patient is now a DNR with a possibility of leading into comfort measures. Daughter is p.o.a.
--- NOTE | 2025-01-22 13:56 | ESPR_ITS ---
<Statement entered by Jackelyn Robles MD - 01/29/25 08:54> I reviewed above note and agree with findings and plans. I have also personally examined the patient with medicine team and went over assessment and plan with medical team including pr intern and resident physician. Documentation for date of: 01/22/25 Senior resident attestation: Patient evaluated at bedside, following goals of care, patient continues to be DNR, continued on antibiotics for pneumonia, daughter Alis is the decision- maker, is open to hospice at home once patient is stable for discharge. Continue tube feeds, at goal, currently saturating well on oxy mask. Anticipate discharge in the next 24 to 48 hours. Patient evaluated and examined at the bedside, plan of care discussed with rest of the team including my attending physician, except as noted. Quresh PGY2 Subjective Subjective Interval history: No overnight events. Patient vitals remained stable overnight. RR wthin normal limits. Repeat chest x-ray. Hospice consulted. Exam Vital Signs Temp Pulse Resp BP Pulse Ox O2 Del Method O2 Flow Rate 97.5 F 87 25 H 148/74 H 100 Oxy Mask 4 01/22/25 12:00 01/22/25 13:18 01/22/25 13:18 01/22/25 12:00 01/22/25 13:18 01/22/25 12:00 01/22/25 13:18 FiO2 30 01/22/25 08:00 Narrative Exam General Appearance: Alert & Oriented X3, well-nourished female who is lying in bed in mild comfort. HEENT: Skull symmetrical and atraumatic. Conjunctivae pin and moist. Pupils equal, round, reactive to light and accommodation (PERRL). External ear without lesion or discharge. Straight, nares patient, mucosa pink, no discharge. No thyroid nodule appreciated. No cervical lymphadenopathy. Cardio: Normal Rate and Rhythm with S1 and S2 heart sounds. No murmurs or extra heart sounds auscultated. No bruits on carotid auscultation. No peripheral edema or cyanosis. Lungs: Symmetric with good expansion. Chest and back non-tender. Breath sounds vesicular with rhonchi Abdomen: Non-tender, Non-distended, Normal Reactive Bowel Sounds Neuro: Alert, cooperative, oriented to person, place, and time. Speech clear. CN grossly intact. Upper motor strength 5/5 and Lower motor strength 5/5. Sensation intact. Objective Labs 01/24/25 04:48 01/24/25 04:48 Labs: Laboratory Results - last 24 hr 01/22/25 04:55 WBC 10.6 RBC 3.16 L Hgb 8.1 L Hct 25.7 L MCV 81 MCH 25.6 MCHC 31.5 RDW Std Deviation 60.4 H Plt Count 414 Neut % (Auto) 82 H Lymph % (Auto) 6 L [place] % (Auto) 8 Eos % (Auto) 1 Baso % (Auto) 1 Neut # (Auto) 8.7 H Lymph # (Auto) 0.6 L [place] # (Auto) 0.9 H Eos # (Auto) 0.1 Baso # (Auto) 0.1 Immature Gran # (Auto) 0.21 H Absolute Nucleated RBC 0.00 Immature Gran % 2 H Nucleated RBC % 0 Sodium 138 Potassium 3.6 D Chloride 99 Carbon Dioxide 29.6 Anion Gap 9 BUN 16 Creatinine 0.8 Estim Creat Clear Calc 43.9 L eGFR > 60 BUN/Creatinine Ratio 20 Glucose 97 Calculated Osmolality 276 Calcium 8.6 Corrected Calcium 8.9 Phosphorus 4.7 Magnesium 2.2 Total Bilirubin 0.2 L AST 12 ALT 9 L Alkaline Phosphatase 68 Total Protein 6.3 Albumin 3.6 Globulin 2.7 Albumin/Globulin Ratio 1.3 ABG Interpretation ABG results: 01/19/25 01/19/25 01/21/25 09:41 11:11 08:48 ABG pH 7.40 7.44 ABG pCO2 42 42 ABG pO2 73 L 59 L* ABG HCO3 25 28 H ABG O2 Saturation 95 92 ABG Base Excess 1 4 H VBG pH 7.37 VBG pCO2 45 VBG pO2 50 VBG Base Excess 0 Quality Measures Quality Measures none Advance care planning discussed with:: patient Assessment & Plan Assessment Current Active Medications: Generic Name Dose Route Start Last Admin Trade Name Freq PRN Reason Stop Dose Admin Acetaminophen 650 mg 01/19/25 09:22 Acetaminophen 325 Mg Tablet PO 02/18/25 09:21 Q6H PRN PAIN OR FEVER > 101 Albuterol/Ipratropium 3 ml 01/19/25 13:00 01/22/25 13:18 Albuterol/Ipratropium (Duoneb) Rt Usha 3 Ml Nebu INH 02/18/25 12:59 3 ml Q6HRRT JOSE Administration Albuterol/Ipratropium 3 ml 01/21/25 08:07 01/21/25 08:14 Albuterol/Ipratropium (Duoneb) Rt Usha 3 Ml Nebu INH 02/20/25 08:06 3 ml Q2HR PRN Administration SHORTNESS OF BREATH OR WHEEZE Heparin Sodium (Porcine) 5,000 unit 01/19/25 09:30 01/22/25 13:42 Heparin Sod Inj 5000 Unit/Ml Vial SC 02/02/25 09:29 5,000 unit Q8HR JOSE Administration Hydroxyzine HCl 10 mg 01/22/25 14:00 Hydroxyzine Hcl 10 Mg Tablet PO 02/21/25 13:59 BID JOSE Ceftriaxone Sodium/Dextrose 1 gm in 50 mls @ 100 mls/hr 01/21/25 09:00 01/22/25 09:36 Rocephin/D5w 1gm Iv Premix IV 01/28/25 08:59 100 mls/hr QDAY JOSE Administration Metronidazole 500 mg in 100 mls @ 200 mls/hr 01/21/25 08:42 01/22/25 13:46 Flagyl 500 Mg Iv IV 01/28/25 08:41 200 mls/hr Q8HR JOSE Administration Levothyroxine Sodium 25 mcg 01/20/25 06:00 01/22/25 05:42 Levothyroxine Sodium 25 Mcg Tablet GT 02/19/25 05:59 25 mcg ACBR JOSE Administration Lorazepam 0.5 mg 01/20/25 09:00 01/21/25 09:44 Lorazepam 0.5 Mg Tablet GT 01/25/25 08:59 0.5 mg QDAY JOSE Administration Losartan Potassium 25 mg 01/21/25 09:00 01/22/25 09:38 Losartan Potassium 25 Mg Tablet GT 02/20/25 08:59 25 mg QDAY JOSE Administration Melatonin 3 mg 01/19/25 17:39 01/21/25 21:08 Melatonin 3 Mg Tablet PO 02/18/25 20:59 3 mg HS PRN Administration Sleep Non-Formulary Medication 1 mg 01/20/25 09:00 01/21/25 11:10 Brexiprazole NG 02/19/25 08:59 Not Given QAM JOSE Ondansetron HCl 4 mg 01/19/25 09:22 01/21/25 19:38 Ondansetron Inj 2 Mg/Ml Inj 2 Ml IV 02/18/25 09:21 4 mg Q6H PRN Administration NAUSEA OR VOMITING Protocol Pantoprazole Sodium 40 mg 01/20/25 09:00 01/22/25 09:38 Pantoprazole Inj 40 Mg Vial IVP 02/19/25 08:59 40 mg QDAY JOSE Administration Sennosides 1 tab 01/20/25 09:00 01/22/25 09:38 Senna Tablet PO 02/19/25 08:59 1 tab QDAY JOSE Administration Protocol Sertraline HCl 50 mg 01/19/25 21:00 01/21/25 21:07 Sertraline Hcl 25 Mg Tablet PO 02/18/25 20:59 50 mg HS JOSE Administration Plan Patient is an 89-year-old female with a past medical history of COPD on 4 L of oxygen at home, hypertension 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 #Pneumonia, likely Aspiration pneumonia #Left pleural effusion likely parapneumonic #Sepsis, secondary to pneumonia, resolved. #Leukocytosis, improved #Troponemia Given risk of squamous cell carcinoma of the tongue w/ dysphagia and increase cough w/ emesis noted by daughter, patient is at an increased risk of aspiration pneumonia. Tachycardiac, Pyrexia, and elevated WBC w/ Pneumonia. Left Pleural effusion noted on repeat chest x-ray on 01/22/2025 showing left pleural effusion, which likely developed with pneumonia. Given patient's goals to be DNR and move towards comfort measures no acute intervention planned. DDx: Given BNP elevated w/ pulmonary vascular congestion, CHF can not be ruled out vs PE which is less likely given negative CTA chest. Echo (01/20/2025): EF 50-55% w/ trace mitral and trace tricuspid reg Chest X-ray: Significant bilateral pneumonia CTA chest: COPD, Septal pumonary edema, bibasilar pneumonia SOFA 3 points Plan -Tylenol as needed -Duonebs -Ceftriaxone 1 gm & Flagyl 01/21/2025 -Levofloxacin 750 01/20/2025-01/21/2025 (given QT prolongation) -Azithromycin x 1 ER and ceftriaxone x 1 ER 01/19/2025 -Has a bed at 30 degrees given risk of aspiration #COPD exacerbation, resolved. #COPD Past medical history of smoking history greater than 20+ and oxygen at home, increased sputum and increased shortness of breath, with increased oxygen required-->COPD exacerbation Plan -on oxy mask on 4 liters -->CPAP -Please do not titrate oxygen mask >92% #Hypertension Patient initially presented with hypertension, but systolic blood pressure improved between 118-130s. Holding losartan as patient not taking at home. Plan -restarted Losartan 25 mg GT #Dementia Past medical history of dementia and agitation. Patient is currently not taking donepezil-hold. Plan -Hold pregabalin -Sertraline 50 mg HS -Brexpiprazole -Lorazepam 0.5 mg QDay -Melatonin HS #Hypothyroidism Resume home medication of Levothyroxine Plan -Resume Levothyroxin 25 mcg AM, prior to food or medication #PEG #Dysphagia Plan -resumed diet -Project Controls Specialist consult -Goal PEG tube-patient is taking Levothyroxine, hold TF 1 hr before and after Levothyroxine to prevent TF interaction: TF rate: Jevity 1.5 with goal of 55ml/hr x22hrs. If no IVF give water flush 150ml Q 4 hours -Protonix -Resumed Feeding #Goals of Care -spoke w/ patient's daughter, Alis, who is power of gauge and instrument inspector, and had discussion about patients worsening prognosis, history of cancer & COPD -->switched to DNR -Witnessed by resident physician (Dr. Lerner) & nurse, [facility] Maintenance: Disp: Pt is currently admitted to floors for further management of sepsis and COPD exacerbation, awaiting blood cultures FEN: Resumed diet, titrate back to goal DVT: on subQ heparin Q12 HRs Code: DNR - The patient's plan was discussed with attending Dr. oRbles and senior residents Dr. Ely Lerner MD PGY1
--- NOTE | 2025-01-22 14:15 | PRELIM_ITS ---
Radiograph of the chest (single view). January 22, 2025 1124 hours Clinical history: pneumonia progression No prior study is available for comparison. Findings: The aorta is ectatic with atheromatous calcification of the aortic arch. The heart size is within normal limits. There are small area of consolidation in the medial right lower lobe. Left basilar atelectasis/ infiltrates are seen. There is small left pleural effusion. The bony thorax is unremarkable. Impression: Right lower lobe pneumonia, Recommend clinical correlation and follow-up. Small left pleural effusion. Report Electronically Signed By: Fabricio Bradshaw 01/22/2025 2:14:42 PM [EST]
--- NOTE | 2025-01-22 15:02 | PC.SS ---
Follow up note: SS met with daughter of patient and remaining family members to discuss any questions they had regarding hospice. Daughter, Alis, is the p.o.a. and states she's already aware of what hospice is because she took care of her mom's when he was on hospice. Daughter states patient will eventually d/c to her home on hospice. Preference is [facility]. Patient was already on [facility]. SS spoke to physician team who states patient is not being discharged today. Daughter wants to ensure the communication is clear and everyone is on the same page. Once patient is ready for d/c, they want hospice nurse shortly after on same day. SS reassured this is how hospice works. However, HH is different and will not be same day. SS will send information on [facility] to [facility]. Patient will need gurney transport upon discharge. D/c pending.
[2025-01-22] MEDS: PRAMIPEXOLE 1.5 MG TABLET GT ×2 (15:30→21:01)
[2025-01-22] MEDS: hydrOXYzine HCL 10 MG TABLET PO ×2 (15:30→20:58)
[2025-01-22] MEDS: SERTRALINE HCL 25 MG TABLET 50 MG PO (20:58)
[2025-01-23] VITALS (11 sets, daily range): BP systolic 137–170; BP diastolic 67–84; PULSE 73–89; RESP 16–32; TEMP 36.2–36.8; O2SAT 91–100
[2025-01-23] MEDS: ONDANSETRON INJ 2 MG/ML INJ 2 ML 4 MG IV (00:38)
[2025-01-23] MEDS: ALBUTEROL/IPRATROPIUM (Duoneb) RT SOL 3 ML NEBU INH ×4 (01:54→18:36)
[2025-01-23] MEDS: PRAMIPEXOLE 1.5 MG TABLET GT ×3 (05:07→21:42)
[2025-01-23] MEDS: metroNIDAZOLE/NS 500 MG IVPB 500 MG/100 ML BAG 200 MG IV ×3 (05:08→21:41)
[2025-01-23] MEDS: POTASSIUM CHLORIDE 20 mEq TABCR PO (05:08)
[2025-01-23] MEDS: HEPARIN SOD INJ 5000 UNIT/ML VIAL SC ×3 (05:08→21:42)
[2025-01-23] MEDS: LEVOTHYROXINE SODIUM 25 MCG TABLET GT (05:09)
[2025-01-23 06:08] LABS: Basophils # (Auto) 0.1 Thou/mm3 (0.0-0.2); Basophils % (Auto) 1 % (0-2.5); Eosinophils # (Auto) 0.2 Thou/mm3 (0.0-0.5); Eosinophils % (Auto) 2 % (0-10); Hematocrit 28.3 % (36.0-46.0); Immature Granulocytes % (Auto) 4 % (0-0); Immature Granulocytes Auto 0.53 Thou/mm3 (0.00-0.00); Lymphocytes # (Auto) 0.6 Thou/mm3 (1.0-4.8); Lymphocytes % (Auto) 5 % (10-50); Mean Corpuscular HGB Conc 30.4 g/dl (31.0-37.0); Mean Corpuscular Hemoglobin 25.6 pg (25.0-35.0); Mean Corpuscular Volume 84 fL (80-100); Monocytes # (Auto) 0.8 Thou/mm3 (0.0-0.8); Monocytes % (Auto) 6 % (0-12); Neutrophils # (Auto) 10.3 Thou/mm3 (1.8-7.7); Neutrophils % (Auto) 82 % (37-80); Nucleated Red Blood Cell % 0 /100 WBC (0); Platelet Count 466 Thou/mm3 (140-440); RDW Standard Deviation 62.8 fL (36.4-46.3); Red Blood Count 3.36 Miln/mm3 (4.00-5.20); White Blood Count 12.6 Thou/mm3 (3.6-11.0)
[2025-01-23 06:37] LABS: Hemoglobin 8.6 g/dL (12.0-16.0)
[2025-01-23 06:49] LABS: Alanine Aminotransferase 9 U/L (10-49); Albumin, Serum 3.6 gm/dL (3.4-4.8); Albumin/Globulin Ratio 1.3 (1.2-2.2); Alkaline Phosphatase 70 U/L (46-116); Anion Gap 8 (7-16); Aspartate Amino Transferase 13 U/L (0-34); BUN/Creatinine Ratio 19 Ratio (12-20); Bilirubin,Total 0.2 mg/dL (0.3-1.2); Blood Urea Nitrogen 15 mg/dL (9-23); Calcium 8.6 mg/dL (8.3-10.6); Calcium (Corrected) 8.9 mg/dL (8.5-10.1); Carbon Dioxide 29.8 mMol/L (20.0-31.0); Chloride 98 mMol/L (98-107); Creatinine (Component) 0.8 mg/dL (0.6-1.3); Estimated Creatinine Clearance 43.9 mL/min (>60); Globulin 2.7 gm/dL (2.3-3.5); Glucose 105 mg/dL (74-106); Osmolality,Calculated 272 (275-295); Phosphorous 4.1 mg/dL (2.4-5.1); Potassium 3.5 mMol/L (3.4-5.1); Sodium 136 mMol/L (136-145); Total Protein 6.3 gm/dL (5.7-8.2); eGFR > 60 See Note
[2025-01-23] MEDS: cefTRIAXone/D5w 1gm IV premix 1 GM/50 ML BAG IV (08:00)
[2025-01-23] MEDS: LOSARTAN POTASSIUM 25 MG TABLET GT (08:00)
[2025-01-23] MEDS: PANTOPRAZOLE INJ 40 MG VIAL IVP (08:01)
[2025-01-23] MEDS: LORazepam 0.5 MG TABLET GT (08:01)
[2025-01-23] MEDS: SENNA TABLET 1 TAB PO (08:01)
[2025-01-23] MEDS: hydrOXYzine HCL 10 MG TABLET PO ×2 (09:07→21:41)
--- NOTE | 2025-01-23 09:50 | PC.NURSE ---
Notified Dr. Bradley of patients occasional PAC's. --
--- NOTE | 2025-01-23 14:41 | ESPR_ITS ---
<Statement entered by Jackelyn Robles MD - 01/29/25 12:55> I reviewed above note and agree with findings and plans. I have also personally examined the patient with medicine team and went over assessment and plan with medical team including internet marketing analyst and resident physician. Documentation for date of: 01/23/25 Subjective Subjective Interval history: Patient was seen and examined at bedside. No acute overnight events. Labs and vitals were reviewed. Patient is back to baseline, saturating 96% on 4 L. Blood pressure is controlled with losartan, daughter was at bedside, Yara crook will have a discussion with a daughter, details will be explained in depth.. Continue 1 more day current management. Plan is to discharge tomorrow home with hospice on p.o. antibiotics. Exam Vital Signs Temp Pulse Resp BP Pulse Ox O2 Del Method O2 Flow Rate 97.6 F 85 24 H 137/72 H 99 Oxy Mask 4 01/23/25 12:00 01/23/25 13:47 01/23/25 13:47 01/23/25 12:00 01/23/25 13:47 01/23/25 12:00 01/23/25 13:47 FiO2 4 01/23/25 12:00 Narrative Exam GENERAL: no acute distress, intermittently is able to answer to some of the questions while the daughter at the bedside, patient is legally blind HEENT: Head AT/ NC. Mucous membranes moist. NECK: Supple, no lymphadenopathy, no carotid bruits. CARDIOVASCULAR: RRR. Normal S1/S2, No m/r/g. RESPIRATORY: CTAB. No wheezing, rhonchi, crackles. Saturating 96% on 4 L nasal cannula which appears to be her baseline. GASTROINTESTINAL: Abdomen soft, non tender no palpable masses. Bowel sounds present in all 4 quadrants. MUSCULOSKELETAL:? No cyanosis or edema NEUROLOGICAL: Neurological exam is limited due to underlying mental condition, patient is not fully cooperative with the physical exam INTEGUMENTARY: No obvious rashes, no jaundice, normal turgor. Objective Labs 01/23/25 05:40 01/23/25 05:40 Labs: Laboratory Results - last 24 hr 01/23/25 05:40 WBC 12.6 H RBC 3.36 L Hgb 8.6 L Hct 28.3 L MCV 84 MCH 25.6 MCHC 30.4 L RDW Std Deviation 62.8 H Plt Count 466 H D Neut % (Auto) 82 H Lymph % (Auto) 5 L [place] % (Auto) 6 Eos % (Auto) 2 Baso % (Auto) 1 Neut # (Auto) 10.3 H Lymph # (Auto) 0.6 L [place] # (Auto) 0.8 Eos # (Auto) 0.2 Baso # (Auto) 0.1 Immature Gran # (Auto) 0.53 H Absolute Nucleated RBC 0.00 Immature Gran % 4 H Nucleated RBC % 0 Sodium 136 Potassium 3.5 Chloride 98 Carbon Dioxide 29.8 Anion Gap 8 BUN 15 Creatinine 0.8 Estim Creat Clear Calc 43.9 L eGFR > 60 BUN/Creatinine Ratio 19 Glucose 105 Calculated Osmolality 272 L Calcium 8.6 Corrected Calcium 8.9 Phosphorus 4.1 Magnesium 2.0 Total Bilirubin 0.2 L AST 13 ALT 9 L Alkaline Phosphatase 70 Total Protein 6.3 Albumin 3.6 Globulin 2.7 Albumin/Globulin Ratio 1.3 ABG Interpretation ABG results: 01/19/25 01/19/25 01/21/25 09:41 11:11 08:48 ABG pH 7.40 7.44 ABG pCO2 42 42 ABG pO2 73 L 59 L* ABG HCO3 25 28 H ABG O2 Saturation 95 92 ABG Base Excess 1 4 H VBG pH 7.37 VBG pCO2 45 VBG pO2 50 VBG Base Excess 0 Quality Measures Quality Measures none Advance care planning discussed with:: child Assessment & Plan Assessment Current Active Medications: Generic Name Dose Route Start Last Admin Trade Name Freq PRN Reason Stop Dose Admin Acetaminophen 650 mg 01/19/25 09:22 Acetaminophen 325 Mg Tablet PO 02/18/25 09:21 Q6H PRN PAIN OR FEVER > 101 Albuterol/Ipratropium 3 ml 01/19/25 13:00 01/23/25 13:45 Albuterol/Ipratropium (Duoneb) Rt Usha 3 Ml Nebu INH 02/18/25 12:59 3 ml Q6HRRT JOSE Administration Albuterol/Ipratropium 3 ml 01/21/25 08:07 01/21/25 08:14 Albuterol/Ipratropium (Duoneb) Rt Usha 3 Ml Nebu INH 02/20/25 08:06 3 ml Q2HR PRN Administration SHORTNESS OF BREATH OR WHEEZE Pramipexole 1.5 Mg 0 ea 04/11/25 15:15 01/23/25 13:22 Tablet GT 02/21/25 15:14 1.5 tablet TID JOSE Administration Heparin Sodium (Porcine) 5,000 unit 01/19/25 09:30 01/23/25 13:21 Heparin Sod Inj 5000 Unit/Ml Vial SC 02/02/25 09:29 5,000 unit Q8HR JOSE Administration Hydralazine HCl 10 mg 01/22/25 16:15 Hydralazine Inj 20 Mg/Ml Vial IV 02/21/25 16:14 Q4HR PRN Hypertension Hydroxyzine HCl 10 mg 01/22/25 14:00 01/23/25 09:07 Hydroxyzine Hcl 10 Mg Tablet PO 02/21/25 13:59 10 mg BID JOSE Administration Ceftriaxone Sodium/Dextrose 1 gm in 50 mls @ 100 mls/hr 01/21/25 09:00 01/23/25 08:00 Rocephin/D5w 1gm Iv Premix IV 01/28/25 08:59 100 mls/hr QDAY JOSE Administration Metronidazole 500 mg in 100 mls @ 200 mls/hr 01/21/25 08:42 01/23/25 13:21 Flagyl 500 Mg Iv IV 01/28/25 08:41 200 mls/hr Q8HR JOSE Administration Levothyroxine Sodium 25 mcg 01/20/25 06:00 01/23/25 05:09 Levothyroxine Sodium 25 Mcg Tablet GT 02/19/25 05:59 25 mcg ACBR JOSE Administration Lorazepam 0.5 mg 01/20/25 09:00 01/23/25 08:01 Lorazepam 0.5 Mg Tablet GT 01/25/25 08:59 0.5 mg QDAY JOSE Administration Losartan Potassium 25 mg 01/21/25 09:00 01/23/25 08:00 Losartan Potassium 25 Mg Tablet GT 02/20/25 08:59 25 mg QDAY JOSE Administration Melatonin 3 mg 01/19/25 17:39 01/21/25 21:08 Melatonin 3 Mg Tablet PO 02/18/25 20:59 3 mg HS PRN Administration Sleep Ondansetron HCl 4 mg 01/19/25 09:22 01/23/25 00:38 Ondansetron Inj 2 Mg/Ml Inj 2 Ml IV 02/18/25 09:21 4 mg Q6H PRN Administration NAUSEA OR VOMITING Protocol Pantoprazole Sodium 40 mg 01/20/25 09:00 01/23/25 08:01 Pantoprazole Inj 40 Mg Vial IVP 02/19/25 08:59 40 mg QDAY JOSE Administration Sennosides 1 tab 01/20/25 09:00 01/23/25 08:01 Senna Tablet PO 02/19/25 08:59 1 tab QDAY JOSE Administration Protocol Sertraline HCl 50 mg 01/19/25 21:00 01/22/25 20:58 Sertraline Hcl 25 Mg Tablet PO 02/18/25 20:59 50 mg HS JOSE Administration Plan Patient is an 89-year-old female with a past medical history of COPD on 4 L of oxygen at home, hypertension 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 #Acute hypoxic respiratory failure secondary due to pneumonia, aspiration versus hospital-acquired given the recent hospital admission #Sepsis secondary due to pneumonia resolved Given risk of squamous cell carcinoma of the tongue w/ dysphagia and increase cough w/ emesis noted by daughter, patient is at an increased risk of aspiration pneumonia. Tachycardiac, Pyrexia, and elevated WBC w/ Pneumonia. Left Pleural effusion noted on repeat chest x-ray on 01/22/2025 showing left pleural effusion, which likely developed with pneumonia. Given patient's goals to be DNR and move towards comfort measures no acute intervention planned. Chest X-ray: Significant bilateral pneumonia CTA chest: COPD, Septal pumonary edema, bibasilar pneumonia SOFA 3 points - Continue antibiotics - Blood cultures negative - Continue monitor hemodynamics - Anticipate discharge in the next 24 hours - Plan is to discharge with p.o. medication to complete antibiotic course - Aspiration precaution #NSTEMI secondary to demand ischemia elevated troponin, down trended to normal range Denies any chest pain Echo (01/20/2025): EF 50-55% w/ trace mitral and trace tricuspid reg - Continue to monitor # History COPD -Support with oxygen -SaO2 88-92 goal #Hypertension -restarted Losartan 25 mg GT #Dementia baseline #anxiety -pregabalin -Sertraline 50 mg HS -Brexpiprazole -Lorazepam 0.5 mg QDay -Melatonin HS #Hypothyroidism -continue levothyroxin 25 mcg AM, prior to food or medication #PEG #Dysphagia -Protonix -Resumed Feeding Disposition: telemetry DVT prophylaxis: Heparin GI prophylaxis: PPI Diet: Peg tube feeding Lines: PIV CODE STATUS:DNR Patient care was discussed with attending physician Dr. Margaret Frost MD PGY-2 I have carefully reviewed this document. Due to imperfections in the voice software, there could be grammatical errors including phonetic/typographic errors. This in no way compromises the medical care the patient is receiving
[2025-01-23] MEDS: MELATONIN 3 MG TABLET PO (21:41)
[2025-01-23] MEDS: SERTRALINE HCL 25 MG TABLET 50 MG PO (21:41)
[2025-01-24] VITALS (12 sets, daily range): BP systolic 150–159; BP diastolic 67–98; PULSE 70–85; RESP 16–30; TEMP 36.6–36.8; O2SAT 90–99
[2025-01-24] MEDS: ALBUTEROL/IPRATROPIUM (Duoneb) RT SOL 3 ML NEBU INH ×4 (00:06→19:01)
[2025-01-24] MEDS: metroNIDAZOLE/NS 500 MG IVPB 500 MG/100 ML BAG 200 MG IV ×3 (05:07→22:05)
[2025-01-24] MEDS: HEPARIN SOD INJ 5000 UNIT/ML VIAL SC ×3 (05:07→22:01)
[2025-01-24] MEDS: LEVOTHYROXINE SODIUM 25 MCG TABLET GT (05:07)
[2025-01-24 05:50] LABS: Basophils # (Auto) 0.1 Thou/mm3 (0.0-0.2); Basophils % (Auto) 1 % (0-2.5); Eosinophils # (Auto) 0.3 Thou/mm3 (0.0-0.5); Eosinophils % (Auto) 2 % (0-10); Hematocrit 26.5 % (36.0-46.0); Immature Granulocytes % (Auto) 6 % (0-0); Immature Granulocytes Auto 0.78 Thou/mm3 (0.00-0.00); Lymphocytes # (Auto) 0.7 Thou/mm3 (1.0-4.8); Lymphocytes % (Auto) 5 % (10-50); Mean Corpuscular HGB Conc 30.9 g/dl (31.0-37.0); Mean Corpuscular Hemoglobin 25.5 pg (25.0-35.0); Mean Corpuscular Volume 82 fL (80-100); Monocytes # (Auto) 0.9 Thou/mm3 (0.0-0.8); Monocytes % (Auto) 7 % (0-12); Neutrophils # (Auto) 10.1 Thou/mm3 (1.8-7.7); Neutrophils % (Auto) 79 % (37-80); Nucleated Red Blood Cell % 0 /100 WBC (0); Platelet Count 436 Thou/mm3 (140-440); RDW Standard Deviation 61.9 fL (36.4-46.3); Red Blood Count 3.22 Miln/mm3 (4.00-5.20); White Blood Count 12.8 Thou/mm3 (3.6-11.0)
[2025-01-24 06:13] LABS: Hemoglobin 8.2 g/dL (12.0-16.0)
[2025-01-24] MEDS: PRAMIPEXOLE 1.5 MG TABLET GT ×3 (06:13→21:59)
[2025-01-24 06:31] LABS: Alanine Aminotransferase 9 U/L (10-49); Albumin, Serum 3.2 gm/dL (3.4-4.8); Albumin/Globulin Ratio 1.2 (1.2-2.2); Alkaline Phosphatase 69 U/L (46-116); Anion Gap 10 (7-16); Aspartate Amino Transferase 15 U/L (0-34); BUN/Creatinine Ratio 20 Ratio (12-20); Bilirubin,Total 0.2 mg/dL (0.3-1.2); Blood Urea Nitrogen 16 mg/dL (9-23); Calcium 8.2 mg/dL (8.3-10.6); Calcium (Corrected) 8.8 mg/dL (8.5-10.1); Carbon Dioxide 27.4 mMol/L (20.0-31.0); Chloride 99 mMol/L (98-107); Creatinine (Component) 0.8 mg/dL (0.6-1.3); Estimated Creatinine Clearance 45.3 mL/min (>60); Globulin 2.6 gm/dL (2.3-3.5); Glucose 124 mg/dL (74-106); Magnesium 1.8 mg/dL (1.6-2.6); Osmolality,Calculated 274 (275-295); Phosphorous 3.8 mg/dL (2.4-5.1); Potassium 3.4 mMol/L (3.4-5.1); Sodium 136 mMol/L (136-145); Total Protein 5.8 gm/dL (5.7-8.2); eGFR > 60 See Note
[2025-01-24] MEDS: hydrOXYzine HCL 10 MG TABLET PO ×2 (08:17→21:58)
[2025-01-24] MEDS: LANSOPRAZOLE 30 MG TAB.RAP.DR GT (08:17)
[2025-01-24] MEDS: cefTRIAXone/D5w 1gm IV premix 1 GM/50 ML BAG IV (08:17)
[2025-01-24] MEDS: LOSARTAN POTASSIUM 25 MG TABLET GT (08:17)
[2025-01-24] MEDS: POTASSIUM CHLORIDE 10% 20 MEQ/15 ML UDC 40 MEQ GT (08:17)
[2025-01-24] MEDS: LORazepam 0.5 MG TABLET GT (08:18)
[2025-01-24] MEDS: SENNA TABLET 1 TAB PO (08:18)
--- NOTE | 2025-01-24 13:02 | ESPR_ITS ---
<Statement entered by Jackelyn Robles MD - 01/29/25 12:56> I reviewed above note and agree with findings and plans. I have also personally examined the patient with medicine team and went over assessment and plan with medical team including sports apparel internship and resident physician. Documentation for date of: 01/24/25 Subjective Subjective Interval history: No overnight events. No bowel movement since 01/20/2025. Senna added and Miralax also placed. Patient has received some items from home with hospice but still pending pump for PEG tube feedings. Pump will likely arrive in 1 to 2 days. Exam Vital Signs Temp Pulse Resp BP Pulse Ox O2 Del Method O2 Flow Rate 98.3 F 77 19 159/97 H 95 Oxy Mask 5 01/24/25 12:00 01/24/25 12:00 01/24/25 12:00 01/24/25 12:00 01/24/25 12:00 01/24/25 12:00 01/24/25 12:00 FiO2 4 01/23/25 12:00 Narrative Exam General Appearance: Alert & Oriented X3, well-nourished female who is lying in bed in mild comfort. HEENT: Skull symmetrical and atraumatic. Conjunctivae pin and moist. Pupils equal, round, reactive to light and accommodation (PERRL). External ear without lesion or discharge. Straight, nares patient, mucosa pink, no discharge. No thyroid nodule appreciated. No cervical lymphadenopathy. Cardio: Normal Rate and Rhythm with S1 and S2 heart sounds. No murmurs or extra heart sounds auscultated. No bruits on carotid auscultation. No peripheral edema or cyanosis. Lungs: Symmetric with good expansion. Chest and back non-tender. Breath sounds vesicular with rhonchi Abdomen: Non-tender, Non-distended, Normal Reactive Bowel Sounds Neuro: Alert, cooperative, oriented to person, place, and time. Speech clear. CN grossly intact. Upper motor strength 5/5 and Lower motor strength 5/5. Sensation intact. Objective Labs 01/24/25 04:48 01/24/25 04:48 Labs: Laboratory Results - last 24 hr 01/24/25 04:48 WBC 12.8 H RBC 3.22 L Hgb 8.2 L Hct 26.5 L MCV 82 MCH 25.5 MCHC 30.9 L RDW Std Deviation 61.9 H Plt Count 436 D Neut % (Auto) 79 Lymph % (Auto) 5 L Ogle % (Auto) 7 Eos % (Auto) 2 Baso % (Auto) 1 Neut # (Auto) 10.1 H Lymph # (Auto) 0.7 L Ogle # (Auto) 0.9 H Eos # (Auto) 0.3 Baso # (Auto) 0.1 Immature Gran # (Auto) 0.78 H Absolute Nucleated RBC 0.00 Immature Gran % 6 H Nucleated RBC % 0 Sodium 136 Potassium 3.4 Chloride 99 Carbon Dioxide 27.4 Anion Gap 10 BUN 16 Creatinine 0.8 Estim Creat Clear Calc 45.3 L eGFR > 60 BUN/Creatinine Ratio 20 Glucose 124 H Calculated Osmolality 274 L Calcium 8.2 L Corrected Calcium 8.8 Phosphorus 3.8 Magnesium 1.8 Total Bilirubin 0.2 L AST 15 ALT 9 L Alkaline Phosphatase 69 Total Protein 5.8 Albumin 3.2 L Globulin 2.6 Albumin/Globulin Ratio 1.2 ABG Interpretation ABG results: 01/19/25 01/19/25 01/21/25 09:41 11:11 08:48 ABG pH 7.40 7.44 ABG pCO2 42 42 ABG pO2 73 L 59 L* ABG HCO3 25 28 H ABG O2 Saturation 95 92 ABG Base Excess 1 4 H VBG pH 7.37 VBG pCO2 45 VBG pO2 50 VBG Base Excess 0 Quality Measures Quality Measures none Advance care planning discussed with:: patient Assessment & Plan Assessment Current Active Medications: Generic Name Dose Route Start Last Admin Trade Name Freq PRN Reason Stop Dose Admin Acetaminophen 650 mg 01/19/25 09:22 Acetaminophen 325 Mg Tablet PO 02/18/25 09:21 Q6H PRN PAIN OR FEVER > 101 Albuterol/Ipratropium 3 ml 01/19/25 13:00 01/24/25 06:39 Albuterol/Ipratropium (Duoneb) Rt Usha 3 Ml Nebu INH 02/18/25 12:59 3 ml Q6HRRT JOSE Administration Albuterol/Ipratropium 3 ml 01/21/25 08:07 01/21/25 08:14 Albuterol/Ipratropium (Duoneb) Rt Usha 3 Ml Nebu INH 02/20/25 08:06 3 ml Q2HR PRN Administration SHORTNESS OF BREATH OR WHEEZE Pramipexole 1.5 Mg 0 ea 01/22/25 15:15 01/24/25 06:13 Tablet GT 02/21/25 15:14 1 tablet TID JOSE Administration Heparin Sodium (Porcine) 5,000 unit 01/19/25 09:30 01/24/25 05:07 Heparin Sod Inj 5000 Unit/Ml Vial SC 02/02/25 09:29 5,000 unit Q8HR JOSE Administration Hydralazine HCl 10 mg 01/22/25 16:15 Hydralazine Inj 20 Mg/Ml Vial IV 02/21/25 16:14 Q4HR PRN Hypertension Hydroxyzine HCl 10 mg 01/22/25 14:00 01/24/25 08:17 Hydroxyzine Hcl 10 Mg Tablet PO 02/21/25 13:59 10 mg BID JOSE Administration Ceftriaxone Sodium/Dextrose 1 gm in 50 mls @ 100 mls/hr 01/21/25 09:00 01/24/25 08:17 Rocephin/D5w 1gm Iv Premix IV 01/28/25 08:59 100 mls/hr QDAY JOSE Administration Metronidazole 500 mg in 100 mls @ 200 mls/hr 01/21/25 08:42 01/24/25 05:07 Flagyl 500 Mg Iv IV 01/28/25 08:41 200 mls/hr Q8HR JOSE Administration Lansoprazole 30 mg 01/24/25 09:00 01/24/25 08:17 Lansoprazole 30 Mg Tab. GT 02/23/25 08:59 30 mg QDAY JOSE Administration Levothyroxine Sodium 25 mcg 01/20/25 06:00 01/24/25 05:07 Levothyroxine Sodium 25 Mcg Tablet GT 02/19/25 05:59 25 mcg ACBR JOSE Administration Lorazepam 0.5 mg 01/20/25 09:00 01/24/25 08:18 Lorazepam 0.5 Mg Tablet GT 01/25/25 08:59 0.5 mg QDAY JOSE Administration Losartan Potassium 50 mg 01/24/25 09:00 01/24/25 09:00 Losartan Potassium 25 Mg Tablet GT 02/23/25 08:59 Not Given QDAY JOSE Melatonin 3 mg 01/19/25 17:39 01/23/25 21:41 Melatonin 3 Mg Tablet PO 02/18/25 20:59 3 mg HS PRN Administration Sleep Ondansetron HCl 4 mg 01/19/25 09:22 01/23/25 00:38 Ondansetron Inj 2 Mg/Ml Inj 2 Ml IV 02/18/25 09:21 4 mg Q6H PRN Administration NAUSEA OR VOMITING Protocol Sennosides 1 tab 01/20/25 09:00 01/24/25 08:18 Senna Tablet PO 02/19/25 08:59 1 tab QDAY JOSE Administration Protocol Sertraline HCl 50 mg 01/19/25 21:00 01/23/25 21:41 Sertraline Hcl 25 Mg Tablet PO 02/18/25 20:59 50 mg HS JOSE Administration Plan Patient is an 89-year-old female with a past medical history of COPD on 4 L of oxygen at home, hypertension 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 #Pneumonia, likely Aspiration pneumonia #Left pleural effusion likely parapneumonic #Sepsis, secondary to pneumonia, resolved. #Leukocytosis, improved #Acute hypoxic respiratory failure, secondary to pneumonia, resolved. Given risk of squamous cell carcinoma of the tongue w/ dysphagia and increase cough w/ emesis noted by daughter, patient is at an increased risk of aspiration pneumonia. Tachycardiac, Pyrexia, and elevated WBC w/ Pneumonia. Left Pleural effusion noted on repeat chest x-ray on 01/22/2025 showing left pleural effusion, which likely developed with pneumonia. Given patient's goals to be DNR and move towards comfort measures no acute intervention planned. DDx: Given BNP elevated w/ pulmonary vascular congestion, CHF can not be ruled out vs PE which is less likely given negative CTA chest. Echo (01/20/2025): EF 50-55% w/ trace mitral and trace tricuspid reg Chest X-ray: Significant bilateral pneumonia CTA chest: COPD, Septal pumonary edema, bibasilar pneumonia SOFA 3 points Plan -Tylenol as needed -Duonebs -Ceftriaxone 1 gm & Flagyl 01/21/2025 -Levofloxacin 750 01/20/2025-01/21/2025 (given QT prolongation) -Azithromycin x 1 ER and ceftriaxone x 1 ER 01/19/2025 -Has a bed at 30 degrees given risk of aspiration #COPD Past medical history of smoking history greater than 20+ and oxygen at home, increased sputum and increased shortness of breath, with increased oxygen required-->COPD exacerbation Plan -high flow if needed, CPAP with caution as risk of aspiration -Please do not titrate oxygen mask >92% #Hypertension Patient had recently stopped Losartan as part of home medication but resumed given elevated systolic blood pressure inpatient to Losartan 25-->and increased to Losartan 50 mg. Plan -Losartan 50 mg GT -Hydralazine PRN #Dementia Past medical history of dementia and agitation. Patient is currently not taking donepezil-hold. Plan -Hold pregabalin -Sertraline 50 mg HS -Pramipexole 1.5 mg TID -Lorazepam 0.5 mg QDay -Melatonin HS #Hypothyroidism Resume home medication of Levothyroxine Plan -Resume Levothyroxin 25 mcg AM, prior to food or medication #PEG #Dysphagia Plan -resumed diet -[employer] consult -Goal PEG tube-patient is taking Levothyroxine, hold TF 1 hr before and after Levothyroxine to prevent TF interaction: TF rate: Jevity 1.5 with goal of 55ml/hr x22hrs. If no IVF give water flush 150ml Q 4 hours -Protonix -Resumed Feeding #Goals of Care -spoke w/ patient's daughter, Alis, who is power of erisa attorney, and had discussion about patients worsening prognosis, history of cancer & COPD -->switched to DNR -Witnessed by resident physician (Dr. Lerner) & nurselauren #Troponemia Health Maintenance: Disp: Pt is currently admitted to floors for further management of sepsis and COPD exacerbation, home w/ hospice FEN: Resumed diet, titrate back to goal DVT: on subQ heparin Q12 HRs Code: DNR
--- NOTE | 2025-01-24 13:23 | PC.SS ---
SS spoke with medical team updating status SS spke with [facility] Marte and Alis, pt daughter; [facility] confirmed they do not have the pump and it will take 1-2 days to be received SS spoke with [facility] Caballero, who will research on status of pump SS spoke with medical team, confirmed pt will need PEG pump for feeding SS received call from [facility] Caballero, ; SS provided update
[2025-01-24] MEDS: POLYETHYLENE GLYCOL 17 GM PACKET PO (16:55)
[2025-01-24] MEDS: SERTRALINE HCL 25 MG TABLET 50 MG PO (21:58)
[2025-01-25] VITALS (12 sets, daily range): BP systolic 131–166; BP diastolic 67–78; PULSE 75–95; RESP 16–25; TEMP 36.4–37.2; O2SAT 91–99
[2025-01-25] MEDS: ALBUTEROL/IPRATROPIUM (Duoneb) RT SOL 3 ML NEBU INH ×3 (00:22→14:12)
[2025-01-25] MEDS: ONDANSETRON INJ 2 MG/ML INJ 2 ML 4 MG IV (03:56)
--- NOTE | 2025-01-25 04:33 | PC.NURSE ---
Dr. Cm notified that patient is not tolerating tube feeding as she started vomiting it and has been restless. No order to stop tube feeding for now placed.
[2025-01-25 05:12] LABS: Basophils # (Auto) 0.2 Thou/mm3 (0.0-0.2); Basophils % (Auto) 1 % (0-2.5); Eosinophils # (Auto) 0.2 Thou/mm3 (0.0-0.5); Eosinophils % (Auto) 1 % (0-10); Hematocrit 27.5 % (36.0-46.0); Immature Granulocytes % (Auto) 7 % (0-0); Immature Granulocytes Auto 1.06 Thou/mm3 (0.00-0.00); Lymphocytes # (Auto) 0.7 Thou/mm3 (1.0-4.8); Lymphocytes % (Auto) 5 % (10-50); Mean Corpuscular HGB Conc 31.3 g/dl (31.0-37.0); Mean Corpuscular Hemoglobin 25.4 pg (25.0-35.0); Mean Corpuscular Volume 81 fL (80-100); Monocytes # (Auto) 1.1 Thou/mm3 (0.0-0.8); Monocytes % (Auto) 7 % (0-12); Neutrophils # (Auto) 11.9 Thou/mm3 (1.8-7.7); Neutrophils % (Auto) 79 % (37-80); Nucleated Red Blood Cell % 0 /100 WBC (0); Platelet Count 579 Thou/mm3 (140-440); RDW Standard Deviation 63.4 fL (36.4-46.3); Red Blood Count 3.38 Miln/mm3 (4.00-5.20); White Blood Count 15.1 Thou/mm3 (3.6-11.0)
[2025-01-25] MEDS: LORazepam 0.5 MG TABLET GT (05:13)
[2025-01-25] MEDS: LEVOTHYROXINE SODIUM 25 MCG TABLET GT (05:13)
[2025-01-25] MEDS: metroNIDAZOLE/NS 500 MG IVPB 500 MG/100 ML BAG 200 MG IV ×2 (05:13→13:06)
[2025-01-25] MEDS: HEPARIN SOD INJ 5000 UNIT/ML VIAL SC ×2 (05:14→13:07)
[2025-01-25] MEDS: PRAMIPEXOLE 1.5 MG TABLET GT ×2 (05:14→13:07)
[2025-01-25 05:22] LABS: Hemoglobin 8.6 g/dL (12.0-16.0)
[2025-01-25] MEDS: METOCLOPRAMIDE INJ 5 MG/ML VIAL 2 ML IVP ×2 (05:32→13:07)
[2025-01-25 05:41] LABS: Alanine Aminotransferase 17 U/L (10-49); Albumin, Serum 3.5 gm/dL (3.4-4.8); Albumin/Globulin Ratio 1.3 (1.2-2.2); Alkaline Phosphatase 69 U/L (46-116); Anion Gap 8 (7-16); Aspartate Amino Transferase 32 U/L (0-34); BUN/Creatinine Ratio 20 Ratio (12-20); Bilirubin,Total 0.2 mg/dL (0.3-1.2); Blood Urea Nitrogen 14 mg/dL (9-23); Calcium 8.3 mg/dL (8.3-10.6); Calcium (Corrected) 8.7 mg/dL (8.5-10.1); Carbon Dioxide 25.6 mMol/L (20.0-31.0); Chloride 99 mMol/L (98-107); Creatinine (Component) 0.7 mg/dL (0.6-1.3); Estimated Creatinine Clearance 51.8 mL/min (>60); Globulin 2.7 gm/dL (2.3-3.5); Glucose 105 mg/dL (74-106); Magnesium 1.8 mg/dL (1.6-2.6); Osmolality,Calculated 266 (275-295); Phosphorous 3.5 mg/dL (2.4-5.1); Potassium 4.1 mMol/L (3.4-5.1); Sodium 133 mMol/L (136-145); Total Protein 6.2 gm/dL (5.7-8.2); eGFR > 60 See Note
[2025-01-25] MEDS: LOSARTAN POTASSIUM 25 MG TABLET 50 MG GT (08:18)
[2025-01-25] MEDS: cefTRIAXone/D5w 1gm IV premix 1 GM/50 ML BAG IV (08:19)
[2025-01-25] MEDS: SENNA TABLET 1 TAB PO (08:19)
[2025-01-25] MEDS: hydrOXYzine HCL 10 MG TABLET PO (08:19)
[2025-01-25] MEDS: LANSOPRAZOLE 30 MG TAB.RAP.DR GT (08:19)
[2025-01-25] MEDS: POLYETHYLENE GLYCOL 17 GM PACKET PO (08:19)
[2025-01-25] MEDS: LACTULOSE SYRUP 20 GM/30 ML UDC 10 GM PO ×2 (08:36→13:06)
--- NOTE | 2025-01-25 10:18 | PC.SS ---
Addendum entered by Georgie Harvey 01/25/25 13:44: SS spoke to Uma pump should be delivered by 1700. SS set up transport through [facility] # [id number] set ETA for 1830. SS updated Uma with [facility] and dtr Alis. Original Note: SS contacted [facility] Caballero, laverne inquire on PEG Pump, per Ada she is making calls this am to find out status and will update SS as soon as sh has updates.
[2025-01-25] MEDS: amLODIPine BESYLATE 5 MG TABLET GT (12:07)
--- NOTE | 2025-01-25 14:53 | ESDS_ITS ---
<Statement entered by Jackelyn Robles MD - 01/29/25 13:00> I reviewed above note and agree with findings and plans. I have also personally examined the patient with medicine team and went over assessment and plan with medical team including quality internship and resident physician. Planned Discharge Date 01/25/25 DS: Providers Provider Date of admission: 01/19/25 09:22 Primary care physician: JUAN Powers Admitting Provider: Jackelyn Robles MD Attending Provider on Admission: Jackelyn Robles MD Consults: 01/19/25 13:39 Referral Registered Dietitian Urgent Comment: Peg tube, can only do about 3-4 feedings per day Instructions: Peg tube, can only do about 3-4 feedings per day and possible increase fiber 01/22/25 11:31 Referral Hospice Urgent Comment: Attending Provider on DC: Laila Lerner MD Discharging Provider: Laila Lerner MD DS: Diagnosis Problem List Completed Was Problem List Reviewed/Reconciled?: Yes Hospital Course Hospital Course Hospital course: Summary: Patient is an 89-year-old female with a past medical history of COPD on 4 L of oxygen at home, hypertension 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 ER Course: Vitals: BP 171/85, HR 102, RR 36, T 102.8, SpO 91% on oxy mask. WB 12.6. CRP 19.9. BNP 433. TSH 2.89. Troponin 0.046, 0.049 0.026 Cxr (01/19/2025): Significant pneumonia perihilar and bibasilar, no significant cardiac enlargement, Moderate vascular congestion Medication 1 bolus, Steriods X1, Ceftriaxone and Azithromycin, started patinet on bipap Hospital Course: During patient's hospital course, patient was started on antibiotics empirically given leukocytosis with levofloxacin given patient's penicillin allergy. On admission patient met sepsis criteria secondary to aspiration pneumonia given sofa score of 3. Sepsis eventually resolved and antibiotics was continued for aspiration pneumonia with ceftriaxone and Flagyl. Urine culture, sputum culture, and echo obtained. Patient started on DuoNebs given past medical history of COPD. Patient's dementia medication was restarted. Patient's PEG tube feedings was held and started on Protonix given risk of aspiration pneumonia. Dietitian was consulted to restart tube feedings. Patient chest x- ray on admission showed significant bilateral pneumonia. CTA obtained rule out PE given patient's tachycardia and tachypnea on admission. CTA chest showed COPD pattern, septal pulmonary edema, bibasilar pneumonia, negative for pulmonary artery embolism. Echo showed a preserved ejection fraction of 50 to 55%. Trace mild and trace tricuspid regurg. Repeat chest x-ray on 01/21/2025 showed significant bilateral pneumonia with possible ARDS pattern. Repeat chest x-ray on 01/22/2025 showed persistent bilateral lower zone infiltrates with likely left pleural effusion. Blood cultures negative. Urine culture grew Enterococcus bacillus. MRSA swab negative. Given patient's and family's goals of care, an aggressive approach was decided against, and patient was made hospice, home. Instructions -Please continue cefuroxim 500 mg twice a day and Metronidazole 500 mg oral every 8 hours, until January 27 to complete course of antibiotic for pneumonia -Please stop tube feedings at night because of risk of aspiration pneumonia -Please continue all prescriptions as prescribed -Please continue to hold Losartan as you are not taking this medication, please speak to your primary care provider if you need to restart. Systolic BP 150s. -Please follow up with your primary care provider within one week of discharge -If your symptoms worsen,please seek immediate medical attention and return to your nearest emergency room -If you do not have a primary care provider, [facility] [address], [place] [address], Home with Hospice #Pneumonia, likely Aspiration pneumonia #Left pleural effusion likely parapneumonic #Sepsis, secondary to pneumonia, resolved. #Leukocytosis, improved #COPD #Hypertension #Dementia #Hypothyroidism #PEG #Dysphagia #Troponemia, resolved #Goals of Care - The patient's plan was discussed with attending Dr. Robles and senior residents Dr. Ely Lerner MD PGY1 Internal Medicine Time Spent with Patient Time attestation: Total time spent providing and/or coordinating discharge services: at least 30 minutes of care and coordination Time spent: Less than 30 minutes Exam Vital Signs Temp Pulse Resp BP Pulse Ox O2 Del Method O2 Flow Rate 97.5 F 92 22 H 152/77 H 98 Oxy Mask 3 01/25/25 11:44 01/25/25 14:13 01/25/25 14:13 01/25/25 12:07 01/25/25 14:13 01/25/25 11:44 01/25/25 14:13 FiO2 4 01/23/25 12:00 Narrative Exam General Appearance: Alert & Oriented X1, well-nourished female who is lying in bed in mild comfort. HEENT: Skull symmetrical and atraumatic. Conjunctivae pin and moist. Pupils equal, round, reactive to light and accommodation (PERRL). External ear without lesion or discharge. Straight, nares patient, mucosa pink, no discharge. No thyroid nodule appreciated. No cervical lymphadenopathy. Cardio: Normal Rate and Rhythm with S1 and S2 heart sounds. No murmurs or extra heart sounds auscultated. No bruits on carotid auscultation. No peripheral edema or cyanosis. Lungs: Symmetric with good expansion. Chest and back non-tender. Breath sounds vesicular with rhonchi Abdomen: Non-tender, Non-distended, Normal Reactive Bowel Sounds Neuro: Alert, cooperative, YES oriented to person, No place, and NO time. Speech clear. CN grossly intact. Upper motor strength 5/5 and Lower motor strength 5/5. Sensation intact. Discharge Plan Plan Patient Disposition: Home w/HOME HEALTH Patient condition on transfer: Stable Care Plan Goals: Instructions -Please continue cefuroxim 500 mg twice a day and Metronidazole 500 mg oral every 8 hours, until January 27 to complete course of antibiotic for pneumonia -Please stop tube feedings at night because of risk of aspiration pneumonia -Please continue all prescriptions as prescribed -Please continue to hold Losartan as you are not taking this medication, please speak to your primary care provider if you need to restart. Systolic BP 150s. -Please follow up with your primary care provider within one week of discharge -If your symptoms worsen,please seek immediate medical attention and return to your nearest emergency room -If you do not have a primary care provider, you may follow up at the [facility] at [address], [place] [address], Prescriptions/Referrals Prescriptions/Med Rec: New cefuroxime axetil 500 mg tablet 500 mg PO BID 4 Days Qty: 8 0RF metronidazole 500 mg tablet 500 mg PO Q8H 4 Days Qty: 12 0RF pantoprazole [Protonix] 20 mg tablet,delayed release (DR/EC) 20 mg PO QDAY 14 Days Qty: 14 0RF Continued ipratropium-albuterol 0.5 mg-3 mg(2.5 mg base)/3 mL solution for nebulization 3 ml INHALATION Q6H PRN (Reason: sob) Patient Comments: INHALE 1 VIAL VIA NEBULIZER EVERY 6 HOURS FOR 30 DAYS NEEDED levothyroxine 25 mcg tablet 25 mcg PO QAM Patient Comments: TAKE 1 TABLET IN THE MORNING ON AN EMPTY STOMACH ONCE A DAY ORALLY 90 DAYS losartan 25 mg tablet 25 mg PO QDAY Patient Comments: TAKE 1 TABLET BY MOUTH EVERY DAY sertraline 50 mg tablet 50 mg PO QDAY donepezil 10 mg tablet,disintegrating 10 mg feeding tube QPM docusate sodium 50 mg/5 mL liquid 200 mg feeding tube QPM Patient Comments: GIVE 20 ML VIA PEG TUBE ONCE A DAY melatonin 5 mg tablet 5 mg PO HS lorazepam 1 mg tablet 0.5 mg feeding tube Q12H Patient Comments: TAKE 1 TABLET BY MOUTH TWICE A DAY montelukast 10 mg tablet 10 mg PO QPM Patient Comments: TAKE 1 TABLET BY MOUTH EVERY DAY AT NIGHT pramipexole 1.5 mg tablet 1.5 mg feeding tube TID 30 Days Qty: 90 0RF pregabalin 20 mg/mL solution 300 mg PO BID Qty: 473 2RF Held lansoprazole 30 mg Tablet,Disintegrat, Delay Rel 30 mg G-tube QDAY 30 Days Qty: 30 0RF Hold Instructions: patient not taking Referrals: Jackie Brennan FNP [Primary Care Provider] - Patient/Caregiver Discharge Instructions Education Materials: Asthma and COPD, Treating Pneumonia Print Language: Nigerian Stand Alone Forms: Mary Ellen Award Info., Patient Portal Info Letter Discharge Order Discharge Orders: Discharge (Routine); Ordered 01/25/25 Ordered By: aLila Lerner Quality Discharge Quality Measures VTE prophylaxis
--- NOTE | 2025-01-26 15:07 | PC.CC ---
PT's dispo was showing H/H, Reviewed chart, PT went home with hospice. Dispo changed to Home w/hospice
== END 2025-01-25 18:57 | disposition hospice, home (50) | DRG 871 ==
LOC: SERX 06:50 → SERHOLD 09:52 → S3NX 13:42
PROVIDERS: Emergency Medicine; Student in an Organized Health Care Education/Training Program; Admitting Provider Internal Medicine; Emergency Provider Emergency Medicine; PCP Registered Nurse Community Health; Visit Provider Internal Medicine
DX: A41.81 Sepsis due to Enterococcus (principal); J18.9 Pneumonia, unspecified organism; J96.21 Acute and chronic respiratory failure with hypoxia; J69.0 Pneumonitis due to inhalation of food and vomit; J44.0 Chronic obstructive pulmonary disease with (acute) lower respiratory infection; J44.1 Chronic obstructive pulmonary disease with (acute) exacerbation; F03.911 Unspecified dementia, unspecified severity, with agitation; E87.1 Hypo-osmolality and hyponatremia; F03.94 Unspecified dementia, unspecified severity, with anxiety; J90 Pleural effusion, not elsewhere classified; I10 Essential (primary) hypertension; Z85.810 Personal history of malignant neoplasm of tongue; Z92.3 Personal history of irradiation; H91.90 Unspecified hearing loss, unspecified ear; H35.30 Unspecified macular degeneration; E03.9 Hypothyroidism, unspecified; R13.10 Dysphagia, unspecified; H54.7 Unspecified visual loss; Z51.5 Encounter for palliative care; Z66 Do not resuscitate; Z93.1 Gastrostomy status; D64.9 Anemia, unspecified; Z87.891 Personal history of nicotine dependence; Z88.0 Allergy status to penicillin; Z79.890 Hormone replacement therapy; Z99.81 Dependence on supplemental oxygen
CPT/HCPCS: 36415; 36600; 71045; 71275; 80053; 80061; 81001; 82803; 83605; 83735; 83880; 84100; 84145; 84439; 84443; 84484; 85025; 85379; 85610; 85652; 85730; 86140; 87040; 87081; 87086; 87186; 87400; 87634; 87811; 93005; 93225; 93306; 94640; 94660; 94664; 96361; 96365; 96372; 96375; 99285; A4649; A9270; J0131; J0456; J0696; J1643; J1938; J1956; J2405; J2470; J2765; J2919; J3475; J3490; J7030; J7050; Q9967; J1836